=== PATIENT | female | born 1965 | race Caucasian/White ===

== ENCOUNTER → 2018-03-19 | Outpatient (CLI) | payer BC ==
[~2018-03-19] MED LIST: FLUO20CA20 PO; GABA600T PO; LEVO25TA PO; PRMVC TOP; RANI150T85 PO
== END | disposition home or self-care (01) ==
LOC: C.CPL 16:19
PROVIDERS: ATTEND Orthopaedic Surgery Sports Medicine
DX: Z01.810 Encounter for preprocedural cardiovascular examination (principal); M20.12 Hallux valgus (acquired), left foot

== ENCOUNTER 2025-08-22 18:42 | Inpatient (IN) ==
[2025-08-22 19:15] LABS: Hematocrit (blood only) 36.6 % (37.0-47.0); Hemoglobin 12.1 g/dl (12.0-16.0); Immature Granulocytes # (auto) 0.07 K/uL (0.01-0.20); Immature Granulocytes % (auto) 0.5 %; Mean Corpuscular Hemoglobin 28.1 pg (25.0-34.0); Mean Corpuscular Volume 84.9 fL (80.0-100.0); Platelet Count 329 K/uL (130-400); RDW Standard Deviation 42.8 fL (36.4-46.3); Red Blood Count 4.31 M/uL (4.20-5.40); White Blood Count 14.58 K/ul (4.8-10.8)
[2025-08-22 19:32] LABS: Alanine Aminotransferase 18.0 U/L (7-52); Albumin Globulin Ratio 1.0 (0.9-2); Albumin Level 3.7 gm/dl (3.4-5.0); Alkaline Phosphatase 88.0 U/L (34-104); Anion Gap 7.0 (3-11); Bilirubin,Total 0.6 mg/dl (0.2-1.0); Blood Urea Nitrogen 10.0 mg/dl (6-23); Calcium 9.7 mg/dl (8.6-10.3); Carbon Dioxide 28.0 mmol/L (21-32); Chloride 101.0 mmol/L (98-107); Creatinine Clr Calc Pharmacy 96.3 ml/min; Globulin 3.7 gm/dl (2.5-4.0); Glucose 111.0 mg/dl (70-99(Fasting)); Lipase 14.0 U/L (11-82); Potassium 3.7 mmol/L (3.5-5.1); Sodium 136.0 mmol/L (136-145); Total Protein 7.4 gm/dl (6.0-8.3)
[2025-08-22] MEDS: OPTIRAY 320 100ml IV ONE (20:15)
[2025-08-22] MEDS: ONDANSETRON INJ 2 MG/ML 2 ML VIAL IV STA (20:23)
[2025-08-22] MEDS: MoRPHine SULFATE 4 MG/ML 1 ML CARP\\VIAL IV STA ×2 (20:23→21:31)
--- NOTE | 2025-08-22 20:37 | Emergency Department Note ---
Impression & Plan Diverticulitis large intestine ED Provider Note Provider: Teodoro Sanford MD CHIEF COMPLAINT: Abdominal pain HISTORY OF PRESENT ILLNESS: Patient is a 59-year-old female past medical history of GERD, cholecystectomy, appendectomy, and hysterectomy presenting here today reporting severe abdominal pain developing over the past 8 or 9 days. Fluctuated some degree and then worsened medically today. Now severe mid abdomen generalized through to the back. No chest pain or shortness of breath. No fevers or chills. Maybe a little nausea at times but no vomiting. Denies significant diarrhea. No rashes reported. Patient is very worried that she could have cancer or some other serious abnormality and she has been googling things by her report. PAST MEDICAL HISTORY: As noted above MEDICATIONS: Reviewed home medications SOCIAL HISTORY: PHYSICAL EXAM: GENERAL: alert and oriented on stretcher tearful and crying quite anxious Head: normocephalic and atraumatic EYES: Slight bilateral conjunctival injection, without purulent discharge or icterus. EOMI. NECK: Trachea midline. Supple. ENT: Mucous membranes pink and moist. LUNGS: Airway patent. No retractions or tachypnea. HEART: Regular rate and rhythm. No chest wall tenderness ABDOMEN: Nondistended but significant guarding and diffuse abdominal tenderness. SKIN: Acyanotic, warm, dry, without rashes EXTREMITIES: Without swelling, tenderness or deformity NEUROLOGICAL: No focal deficits. No aphasia. No facial droop or slurred speech. EK bpm sinus rhythm with some artifact and a PVC. No acute ST segment elevation or depression with a QTc of 435. CONTINUOUS CARDIAC MONITORING: was ordered and showed a heart rate of bpm in Patient's laboratory studies and imaging reviewed. Differential includes Appendicitis, infections, diverticulitis, UTI, obstruction, mesenteric ischemia, aortic pathology, inflammatory bowel disease, renal colic, PUD, pancreatitis, biliary pathology, hernia, volvulus, constipation, as well as other pathologies. IMPRESSION/MEDICAL DECISION MAKING: Seen at time high-volume and acuity. From triage basic lab work is sent. No significant electrolyte abnormality signs of hepatitis or pancreatitis. EKG and troponin reviewed without findings concerning for cardiac injury. Denies any chest pain. Leukocytosis of 14 is noted without other anemia. Patient significant abdominal tenderness. Received some morphine and little bit of Zofran to help with this. CT scan of the abdomen pelvis was obtained. Does not seem consistent with kidney stone. Not really sided. Prior cholecystectomy, hysterectomy, and appendectomy lower suspicion for these diseases. Given her significant pain and tenderness almost question if she is perforated. CT scan of the abdomen pelvis shows evidence of acute diverticulitis of the mid sigmoid colon with a 5.8 x 4.3 x 5 cm contained perforation as abscess without free air. There is a question of possibly developing colovesicular fistula. Empiric Zosyn was ordered for antibiotic coverage here. Given CT finding reached out discussed with the general surgery team on-call tonight. Fortunately we have a colorectal surgeon who would be available tomorrow to evaluate as well as possible further discussion with IR to see if drainage would be amenable. Will start in addition to Zosyn and vancomycin for tonight. General surgery PA will evaluate and recommended medical admission. Discussed with the hospitalist team. Patient and updated at bedside. Advised them do not see report of any findings concerning for cancer at this time as she was worried about this. DIAGNOSIS: Sigmoid diverticulitisperforated DISPOSITION: Hospitalist will evaluate Patient was agreeable with this plan. Past Med/Surg History Problem List (Updated 08/22/25 @ 22:23 by Raffi Serra PA-C) Diverticulitis of intestine with abscess Diverticulitis large intestine (Acute) Gastroesophageal reflux disease Thyroid disease History of cholecystectomy History of appendectomy History of hysterectomy Vaginal discharge (Acute) Social History Smoking Status: Never smoker Preferred Language: Amharic marital status: current occupational status: employed Feels Safe at Home: Yes Allergies Allergies Allergy/AdvReac Type Severity Reaction Status Date / Time hydroxyzine Allergy Intermediate hives Verified 08/22/25 21:26 ketorolac Allergy Intermediate HIVES Verified 08/22/25 21:26 metoclopramide Allergy Intermediate hives Verified 08/22/25 21:26 GI COCKTAIL Allergy Severe HIVES & Uncoded 08/22/25 21:26 SWELLING Home Meds Home Medications Medication Instructions Recorded Confirmed levothyroxine 25 mcg tablet 25 mcg PO DAILY 07/30/20 08/22/25 ibuprofen 200 mg tablet 800 mg PO Q8 PRN Pain 02/21/23 08/22/25 losartan 50 mg-hydrochlorothiazide 1 tab PO DAILY 02/21/23 08/22/25 12.5 mg tablet Results & Data (ED) Vital Signs Vital Signs - 24 hr 08/22/25 18:47 08/22/25 20:31 08/22/25 20:33 Temperature 36.5 C Temperature Source Temporal Artery Scan Pulse Rate 89 103 H Pulse Rate [Apical] 101 H Respiratory Rate 18 22 Respiratory Effort / Characteristics Non-Labored Spontaneous Non-Labored Spontaneous Respiratory Depth Normal Normal Respiratory Pattern Regular Regular Blood Pressure 165/82 H Blood Pressure [Right Arm] 150/85 H Blood Pressure Mean 109 Blood Pressure Mean [Right Arm] 106 Blood Pressure Position [Right Arm] Semi-fowlers Pulse Oximetry 99 97 Oxygen Delivery Method Room Air Room Air Sepsis Recent Fever Within 48 Hours No Sepsis New/Unexplained Change in Mental Status N/A Sepsis Action Taken by Nursing No Action Required 08/22/25 22:00 Temperature Temperature Source Pulse Rate Pulse Rate [Apical] 87 Respiratory Rate 17 Respiratory Effort / Characteristics Non-Labored Spontaneous Respiratory Depth Normal Respiratory Pattern Regular Blood Pressure Blood Pressure [Right Arm] 150/85 H Blood Pressure Mean Blood Pressure Mean [Right Arm] 106 Blood Pressure Position [Right Arm] Pulse Oximetry 97 Oxygen Delivery Method Room Air Sepsis Recent Fever Within 48 Hours Sepsis New/Unexplained Change in Mental Status Sepsis Action Taken by Nursing Laboratory Data 08/22/25 18:55 08/22/25 18:55 Lab Results 08/22/25 08/22/25 Range/Units 18:55 21:20 WBC 14.58 H (4.8-10.8) K/ul RBC 4.31 (4.20-5.40) M/uL Hgb 12.1 (12.0-16.0) g/dl Hct 36.6 L (37.0-47.0) % MCV 84.9 (80.0-100.0) fL MCH 28.1 (25.0-34.0) pg MCHC 33.1 (32.0-36.0) g/dL RDW Std Deviation 42.8 (36.4-46.3) fL RDW Coeff of Mayela 13.7 (11.5-14.5) % Plt Count 329 (130-400) K/uL MPV 9.0 L (9.4-12.4) fL Immature Gran % (Auto) 0.5 % Neut % (Auto) 83.2 % Lymph % (Auto) 9.3 % [place] % (Auto) 5.7 % Eos % (Auto) 1.0 % Baso % (Auto) 0.3 % Neut # (Auto) 12.13 H (1.40-6.50) K/uL Lymph # (Auto) 1.36 (1.20-3.40) K/uL [place] # (Auto) 0.83 H (0.11-0.59) K/uL Eos # (Auto) 0.15 (0.00-0.50) K/uL Baso # (Auto) 0.04 (0.00-0.20) K/uL Immature Gran # (Auto) 0.07 (0.01-0.20) K/uL Sodium 136 (136-145) mmol/L Potassium 3.7 (3.5-5.1) mmol/L Chloride 101 (98-107) mmol/L Carbon Dioxide 28 (21-32) mmol/L Anion Gap 7 (3-11) BUN 10 (6-23) mg/dl Creatinine 0.69 (0.6-1.2) mg/dl Est Cr Clr Drug Dosing 96.3 ml/min eGFR 98.68 BUN/Creatinine Ratio 14.5 (10-20) Glucose 111 H (70-99(Fasting)) mg/dl Calcium 9.7 (8.6-10.3) mg/dl Magnesium 1.8 (1.7-2.4) mg/dl Total Bilirubin 0.6 (0.2-1.0) mg/dl AST 10 L (13-39) U/L ALT 18 (7-52) U/L Alkaline Phosphatase 88 (34-104) U/L Troponin I High Sens 3.9 (0-14) pg/ml Total Protein 7.4 (6.0-8.3) gm/dl Albumin 3.7 (3.4-5.0) gm/dl Globulin 3.7 (2.5-4.0) gm/dl Albumin/Globulin Ratio 1.0 (0.9-2) Lipase 14 (11-82) U/L Procalcitonin 0.04 (0-0.5) ng/ml Urine Color Yellow Urine Appearance Clear (Clear) Urine pH 7.5 (4.5-7.5) Ur Specific [place] 1.036 H (1.000-1.030) Urine Protein Negative (Negative) Urine Glucose (UA) Negative (Negative) Urine Ketones Negative (Negative) Urine Blood Trace H (Negative) Urine Nitrite Negative (Negative) Urine Bilirubin Negative (Negative) Urine Urobilinogen Negative (Negative) Ur Leukocyte Esterase 1+ H (Negative) Urine WBC (Auto) 0-5 (0-5) /hpf Urine RBC (Auto) 0-2 (0-2) /hpf U Hyaline Cast (Auto) 0-2 (0-2) /lpf U Epithel Cells (Auto) 0-2 (0-2) /hpf Urine Bacteria (Auto) None Seen (None Seen) Urine Comment Administered Medications Vancomycin HCl 1,750 mg/ (Sodium Chloride) 535 mls @ 200 mls/hr IV NOW ONE Stop: 08/23/25 00:00 Last Admin: 08/22/25 21:31 Dose: 200 mls/hr Documented By: TENNILLE Lactated Ringer's (Lr) 1,000 mls @ 125 mls/hr IV .Q8H MORALES Stop: 08/23/25 06:14 Last Admin: 08/22/25 22:36 Dose: 125 mls/hr Documented By: TENNILLE Morphine Sulfate (Morphine Sulfate 4 Mg/Ml 1 Ml Carp\Vial) 2 - 4 mg IV Q3H PRN PRN Reason: Pain moderate/severe Stop: 09/05/25 22:13 Last Admin: 08/22/25 22:36 Dose: 2 mg Documented By: TENNILLE Discontinued Medications Sodium Chloride (Nss) 1,000 mls @ 999 mls/hr IV .Q1H1M ONE Stop: 08/22/25 22:05 Last Infusion: 08/22/25 22:23 Dose: Infused Documented By: Admin: 08/22/25 21:17 Dose: 999 mls/hr Documented By: TENNILLE Ioversol (Optiray 320 100ml) 90 ml IV ONCE ONE Stop: 08/22/25 20:15 Last Admin: 08/22/25 20:15 Dose: 90 ml Documented By: JC Morphine Sulfate (Morphine Sulfate 4 Mg/Ml 1 Ml Carp\Vial) 4 mg IV NOW STA Stop: 08/22/25 20:10 Last Admin: 08/22/25 20:23 Dose: 4 mg Documented By: ADAN Morphine Sulfate (Morphine Sulfate 4 Mg/Ml 1 Ml Carp\Vial) 4 mg IV NOW STA Stop: 08/22/25 21:21 Last Admin: 08/22/25 21:31 Dose: 4 mg Documented By: TENNILLE Ondansetron HCl (Ondansetron Inj 2 Mg/Ml 2 Ml Vial) 4 mg IV NOW STA Stop: 08/22/25 20:10 Last Admin: 08/22/25 20:23 Dose: 4 mg Documented By: EMB Imaging Data Radiologist's Impression: Abdomen/Pelvis CT 08/22/25 19:16 Exam(s): CT ABDOMEN + PELVIS With Contrast IV Amt: 90 ml optiray 320 EXAM: CT Abdomen and Pelvis With Intravenous Contrast CLINICAL HISTORY: Reason for exam: abd pain to back. TECHNIQUE: Axial computed tomography images of the abdomen and pelvis with intravenous contrast. CTDI is 25.9 mGy and DLP is 1173 mGy-cm. Automated exposure control was utilized for the study. A dose lowering technique was utilized adhering to the principles of ALARA. CONTRAST: Patient received 90 ml optiray 320 of IV contrast COMPARISON: 02/20/2023 FINDINGS: Lung bases: Unremarkable. ABDOMEN: Liver: Unremarkable. No mass. Gallbladder and bile ducts: Cholecystectomy. No ductal dilation. Pancreas: Unremarkable. No mass. No ductal dilation. Spleen: Unremarkable. No splenomegaly. Adrenals: Unremarkable. No mass. Kidneys and ureters: No hydronephrosis. Left kidney extrarenal pelvis. Stomach and bowel: No bowel obstruction. Diverticulosis. Complicated acute diverticulitis of the mid sigmoid colon with contained perforation/diverticular abscess along the lateral aspect measuring 5.8 x 4.3 x 5.0 cm. PELVIS: Appendix: Appendix not visualized. Bladder: Wall thickening left aspect of the urinary bladder with inflammatory tract extending between the bladder and the inflamed sigmoid colon. Reproductive: Unremarkable as visualized. ABDOMEN and PELVIS: Intraperitoneal space: Trace ascites in the pelvis. No free pneumoperitoneum. Bones/joints: Disc and facet degeneration in the lumbar spine. No acute fracture. No dislocation. Soft tissues: Unremarkable. Vasculature: Atherosclerosis. No abdominal aortic aneurysm. Lymph nodes: Unremarkable. No enlarged lymph nodes. IMPRESSION: 1. Complicated acute diverticulitis of the mid sigmoid colon with contained perforation/diverticular abscess along the lateral aspect measuring 5.8 x 4.3 x 5.0 cm. 2. Inflammatory tract extending from the inflamed sigmoid to the urinary bladder (best visualized on sagittal images 56-60) could represent a developing colovesicular fistula. 3. No free pneumoperitoneum. Electronically signed by: Alyssa Mackay M.D. 08/22/25 20:55 PM Discharge Plan Visit Data Chief Complaint: Abdominal Pain Stated Complaint: SEVERE ABD PAIN ED Provider: Teodoro Sanford Discharge Problem: Diverticulitis large intestine Patient Disposition: Being Evaluated by Hospitalist Condition: Serious Forms Stand Alone Forms: [facility] Prescriptions Prescriptions: No Action levothyroxine 25 mcg Tablet 25 mcg PO DAILY ibuprofen 200 mg Tablet 800 mg PO Q8 PRN (Reason: Pain) losartan-hydrochlorothiazide 50-12.5 mg tablet 1 tab PO DAILY Referrals Referrals: Shi Velasquez MD [Primary Care Provider] - Discharge Problem: Diverticulitis large intestine Qualifiers: Diverticulitis bleeding: without bleeding Diverticulitis complication: with perforation and abscess Qualified Code(s): K57.20 - Diverticulitis of large intestine with perforation and abscess without bleeding
--- NOTE | 2025-08-22 20:56 | CT Scan Report ---
Exam(s): CT ABDOMEN + PELVIS With Contrast IV Amt: 90 ml optiray 320 EXAM: CT Abdomen and Pelvis With Intravenous Contrast CLINICAL HISTORY: Reason for exam: abd pain to back. TECHNIQUE: Axial computed tomography images of the abdomen and pelvis with intravenous contrast. CTDI is 25.9 mGy and DLP is 1173 mGy-cm. Automated exposure control was utilized for the study. A dose lowering technique was utilized adhering to the principles of ALARA. CONTRAST: Patient received 90 ml optiray 320 of IV contrast COMPARISON: 02/20/2023 FINDINGS: Lung bases: Unremarkable. ABDOMEN: Liver: Unremarkable. No mass. Gallbladder and bile ducts: Cholecystectomy. No ductal dilation. Pancreas: Unremarkable. No mass. No ductal dilation. Spleen: Unremarkable. No splenomegaly. Adrenals: Unremarkable. No mass. Kidneys and ureters: No hydronephrosis. Left kidney extrarenal pelvis. Stomach and bowel: No bowel obstruction. Diverticulosis. Complicated acute diverticulitis of the mid sigmoid colon with contained perforation/diverticular abscess along the lateral aspect measuring 5.8 x 4.3 x 5.0 cm. PELVIS: Appendix: Appendix not visualized. Bladder: Wall thickening left aspect of the urinary bladder with inflammatory tract extending between the bladder and the inflamed sigmoid colon. Reproductive: Unremarkable as visualized. ABDOMEN and PELVIS: Intraperitoneal space: Trace ascites in the pelvis. No free pneumoperitoneum. Bones/joints: Disc and facet degeneration in the lumbar spine. No acute fracture. No dislocation. Soft tissues: Unremarkable. Vasculature: Atherosclerosis. No abdominal aortic aneurysm. Lymph nodes: Unremarkable. No enlarged lymph nodes. IMPRESSION: 1. Complicated acute diverticulitis of the mid sigmoid colon with contained perforation/diverticular abscess along the lateral aspect measuring 5.8 x 4.3 x 5.0 cm. 2. Inflammatory tract extending from the inflamed sigmoid to the urinary bladder (best visualized on sagittal images 56-60) could represent a developing colovesicular fistula. 3. No free pneumoperitoneum. Electronically signed by: Alyssa Mackay M.D. 08/22/25 20:55 PM
--- NOTE | 2025-08-22 21:14 | Surgery Consultation ---
Date of Consultation August 22, 2025 Assessment & Plan (1) Diverticulitis of intestine with abscess: The patient is a 59-year-old female presented to the emergency department with approximately 8 days of abdominal pain. Upon workup patient with elevated WBC of 14.[address] A/P findings of acute diverticulitis of mid sigmoid colon with contained perforation/diverticular abscess along lateral aspect (5.8 x 4.1 x 5.0 cm), inflammatory tract extending from the sigmoid to the urinary bladder could represent developing colovesicular fistula, no free pneumoperitoneum. Patient was seen and evaluated at bedside this evening in the emergency department and she will be admitted to the medical service. From a surgical standpoint recommend the following: -Keep NPO, appropriate IV hydration, and IV antibiotic coverage -Patient with [id number] abscess, will discuss case with IR team in the morning for possible drainage -Pain control and antiemetics as needed -Will discuss patient's case with attending surgeon inspector structural bonding, Dr. Woodruff, and additional surgical recommendations will follow. Supervising Physician Co-Signing Physician Notes CT images and results were personally viewed and interpreted by myself She has an abscess in the left pelvis, will reach out to IR to see if this is able to be drained No plans for any surgical intervention at this time History of Present Illness Reason for Consultation: Diverticulitis with abscess and possible colovesicular fistula History of Present Illness The patient is a 59-year-old female presented to the emergency department with approximately 8 days of abdominal pain. Patient states that last week she awoke from sleep around 3:30 in the morning with severe abdominal pain that came out of nowhere. Patient states that prior to the pain she felt in her normal state of health. The patient states that over the last few days she has just overall not felt well. States that her abdomen felt overall "heavy" and she has had intermittent sharp/severe lower abdominal pain, mostly in the left lower quadrant. She also states the pain has started to radiate into her entire lower abdomen and now into her back as well. She also states that she has increased pain before/during a bowel movement. She denies any associated nausea, vomiting, fevers, or chills. The patient states that she did have a colonoscopy approximately 10 years ago, she was told she has diverticulosis but at the time there were no other abnormal findings. The patient does have a surgical history of a hysterectomy and 2 C-sections in the past. The patient was worked up in the emergency department this evening and was found to have an elevated WBC at 14.[address] findings of acute diverticulitis of mid sigmoid colon with contained perforation/diverticular abscess along lateral aspect (5.8 x 4.1 x 5.0 cm), inflammatory tract extending from the sigmoid to the urinary bladder could represent developing colovesicular fistula, no free pneumoperitoneum. The surgical team was consulted to evaluate the patient. Allergies Allergy/AdvReac Type Severity Reaction Status Date / Time aluminum hydroxide Allergy Severe hives and Verified 08/23/25 07:59 [From Maalox Maximum swelling Strength] atropine [From ] Allergy Severe hives and Verified 08/23/25 07:59 swelling hyoscyamine [From ] Allergy Severe hives and Verified 08/23/25 07:59 swelling lidocaine Allergy Severe hives and Verified 08/23/25 07:59 swelling magnesium hydroxide Allergy Severe hives and Verified 08/23/25 07:59 [From Maalox Maximum swelling Strength] phenobarbital [From ] Allergy Severe hives and Verified 08/23/25 07:59 swelling scopolamine [From ] Allergy Severe hives and Verified 08/23/25 07:59 swelling simethicone Allergy Severe hives and Verified 08/23/25 07:59 [From Maalox Maximum swelling Strength] hydroxyzine Allergy Intermediate hives Verified 08/22/25 21:26 ketorolac Allergy Intermediate HIVES Verified 08/22/25 21:26 metoclopramide Allergy Intermediate hives Verified 08/22/25 21:26 Home Medications Medication Instructions Recorded Confirmed Type levothyroxine 25 mcg tablet 25 mcg PO DAILY 07/30/20 08/22/25 History ibuprofen 200 mg tablet 800 mg PO Q8 PRN Pain 02/21/23 08/22/25 History losartan 50 mg-hydrochlorothiazide 1 tab PO DAILY 02/21/23 08/22/25 History 12.5 mg tablet Patient History Social History Smoking Status: Never smoker Hx Alcohol Use: No Hx Substance Use: No Preferred Language: Bengali Communication Ability: Effective Telegraphic Typewriter Repairer Required: No Beliefs That Will Affect Care: None marital status: Current Living Situation: Spouse current occupational status: employed Other Information That Helps Us Care for You: No Feels Safe at Home: Yes Safety Concerns: Feels Safe At This Time Assistive Devices: Glasses Review of Systems Constitutional: no fever, no chills and no weakness Respiratory: no cough, no chest congestion and no dyspnea Cardiovascular: no chest pain, no palpitations and no syncope Gastrointestinal: as per Subjective / HPI and + abdominal pain; no nausea and no vomiting Genitourinary: no difficulty urinating and no hematuria Physical Exam Constitutional: WD/WN, vitals as above Respiratory: normal respiratory effort, lungs clear to auscultation Cardiovascular: Rate/Rhythm: regular rate Gastrointestinal (Abdomen): Abdomen soft, nondistended, +TTP in the lower abdomen L>R. No rebound, guarding or signs of peritonitis Skin: no rashes, warm and dry Results & Data Vital Signs (Past 12 Hours) Vital Signs Temp Pulse Pulse Resp BP BP Pulse Ox 08/22/25 20:33 103 H 08/22/25 20:31 101 H 22 150/85 H 97 08/22/25 18:47 36.5 C 89 18 165/82 H 99 O2 Del Method 08/22/25 20:33 08/22/25 20:31 Room Air 08/22/25 18:47 Room Air PG Care Time/CCT Total # of Minutes Spent Total Time Spent with Patient: Total time spent is greater than 50% in coordination of care (as documented) at patient's floor/unit and/or counseling patient: [place] [address] Inpt Consult Level 1 Patient Type New Medical Decision Making Straight Forward Diagnoses Diverticulitis of intestine with abscess K57.80
[2025-08-22] MEDS: SODIUM CHLORIDE 0.9% 1,000 ML IV ONE (21:17)
[2025-08-22] MEDS ORDERED: VANCOMYCIN CONSULT ACTIVE PRN (21:20)
[2025-08-22] MEDS: VANCOMYCIN HCL 1,750 MG in SODIUM CHLORIDE 0.9% 500 ML IV ONE (21:31)
[2025-08-22 21:43] LABS: Appearance Urine Clear (Clear); Bacteria Urine Automated None Seen (None Seen); Cast Urine Automated 0-2 /lpf (0-2); Epithelial Cell Urine Auto 0-2 /hpf (0-2); Glucose Urine UA Negative (Negative); RBC Urine Automated 0-2 /hpf (0-2); WBC Urine Automated 0-5 /hpf (0-5)
--- NOTE | 2025-08-22 21:44 | History & Physical Report ---
Date of Service August 22, 2025 Assessment & Plan (1) Diverticulitis of intestine with abscess: Plan 59-year-old female PMHx hypothyroidism, HTN, and GERD presenting for worsening abdominal pain starting 9 days [employer]. Evaluation does reveal evidence of leukocytosis, with stable H/H. CMP grossly unremarkable, and UA pending at time of admission. CTAP shows complicated diverticulitis with contained perforation/abscess present, possible developing colovesicular fistula. Admission for IV abx, with general surgery assistance. #Diverticulitis with abscess / ? Colovesicular fistula Worsening abdominal pain over the course of 90s [employer], worsened with a night of arrival. Prior hysterectomy, and 2 C-sections. Colonoscopy ~ 10 years ago, was told she had diverticulosis at that time. Admission for IV abx and pain control at this time. Appreciate general surgery assistance. Patient should have colonoscopy 6 to 8 weeks following the resolution of infection. - CBC WBC 14.58, H/H 12.1/36.6; CMP glucose 111, AST 10; Mg 1.8; procal 0.04; lactate pending - CBC, BMP am - UA without infection - CTAP complicated acute diverticulitis of mid sigmoid colon with contained perforation/diverticular abscess along lateral aspect, inflammatory tract extending from the sigmoid to urinary bladder could represent developing colovesicular fistula, no free pneumoperitoneum - NPO - IVF LR @ 125 mL/hr - Zofran prn N/V - Acetaminophen prn fever/pain, morphine prn moderate-severe pain - Zosyn + Vanco IV - Gen sx consulted -- as well as colorectal specifically -- appreciate input + recs #HTN- Losartan-HCTZ - hold while npo #Hypothyroidism- Levothyroxine - hold while npo Dispo: Admit, med/sx VTE Prophylaxis: SCDs This document was dictated utilizing [employer]. Please excuse any grammatical errors that may be secondary to use of this software. Admission and Anticipated Discharge Date Admission Date: 08/22/2025 History of Present Illness Chief Complaint: Abd pain Primary Care Provider: Shi Velasquez MD 59-year-old female PMHx hypothyroidism, HTN, and GERD presenting for worsening abdominal pain starting 8 days [employer]. Pt states that ~ 1 week [employer] she awoke from sleep around 0330 with "excruciating pain". She states that she tossed and turned throughout the night and was unable to get comfortable. She states that the day after that she tried to go to a festival when she felt not great throughout the day. She called off work at the beginning of the week and then when she went back in the next day she states that she just did not feel "right ". Describes her abdomen felt generalized heaviness with waves of worsening sharp pain across her lower abdomen, most severe in the left lower quadrant, but also radiating to the right lower quadrant. She states on the day of arrival her pain increased significantly, stating that it was also radiating to her back and lower aspect without radiation elsewise. She states that she has some small bowel movements that are loose in nature, but she otherwise feels that she has to have a bowel movement and is unable to. She has not noticed any blood. Not having any nausea or vomiting. She states that her last colonoscopy was approximately 10 years ago, she was told that she has diverticulosis but no other findings. Has had a hysterectomy with only 1 ovary left as well as 2 C- sections in the past. Denies chest pain, SOB, palpitations, numbness/tingling, fever/chills, LUTS, URI symptoms, weakness, syncope, or falls. Never had this happen before. ED evaluation revealed CBC with leukocytosis 14.58, H&H 12.1/36.1; CMP glucose 111, AST 10; lipase 14; troponin 3.9; UA pending; CTAP complicated acute diverticulitis of mid sigmoid colon with contained perforation/diverticular abscess along lateral aspect (5.8 x 4.1 x 5.0 cm), inflammatory tract extending from the sigmoid to the urinary bladder could represent developing colovesicular fistula, no free pneumoperitoneum; EKG sinus rhythm with PSVC and occasional PVCs with nonspecific ST abnormality at 85 bpm.; Provided with 1L NSS, vancomycin IV, Zofran 4 mg IV, and morphine 4 mg IV x [address] Please see Dr[address] Unger's attestation for adjustments/additions to treatment plan. Allergies Allergy/AdvReac Type Severity Reaction Status Date / Time hydroxyzine Allergy Intermediate hives Verified 08/22/25 21:26 ketorolac Allergy Intermediate HIVES Verified 08/22/25 21:26 metoclopramide Allergy Intermediate hives Verified 08/22/25 21:26 GI COCKTAIL Allergy Severe HIVES & Uncoded 08/22/25 21:26 SWELLING Home Medications Medication Instructions Recorded Confirmed Type levothyroxine 25 mcg tablet 25 mcg PO DAILY 07/30/20 08/22/25 History ibuprofen 200 mg tablet 800 mg PO Q8 PRN Pain 02/21/23 08/22/25 History losartan 50 mg-hydrochlorothiazide 1 tab PO DAILY 02/21/23 08/22/25 History 12.5 mg tablet Past Med/Surg History Problem List (Updated 08/22/25 @ 22:23 by Raffi Serra PA-C) Diverticulitis of intestine with abscess Diverticulitis large intestine (Acute) Gastroesophageal reflux disease Thyroid disease History of cholecystectomy History of appendectomy History of hysterectomy Vaginal discharge (Acute) Social History Smoking Status: Never smoker Hx Alcohol Use: No Hx Substance Use: No Preferred Language: Cypriot Communication Ability: Effective Phone Engineer Required: No Beliefs That Will Affect Care: None marital status: Current Living Situation: Spouse current occupational status: employed Other Information That Helps Us Care for You: No Feels Safe at Home: Yes Safety Concerns: Feels Safe At This Time Assistive Devices: Glasses Review of Systems Review of Systems: All systems reviewed & are unremarkable except as noted in Subjective Physical Exam Physical Exam: General: No acute distress Skin: Warm and dry Head: Normocephalic, atraumatic Eyes: PERRL, conjunctivae clear, sclera non-icteric ENT: External ear and ear canal without swelling; nose atraumatic; good dentition, tongue normal appearance, pharynx normal Neck: Supple, no LAD Cardio: RRR, no M/G/R, S1 and S2 normal Resp: No respiratory distress, Lungs CTA in all lobes bilaterally, no wheezes, rales, or rhonchi Abdomen: Soft, symmetric, tenderness LLQ, no guarding or signs of peritonitis; No masses or hepatosplenomegaly; Bowel sounds normoactive MSK: No deformities; pulses palpable and equal; no edema. Neuro: Awake, alert; Sensation intact bilaterally; CN grossly intact Psych: Tearful, appropriate mood and affect; good judgement and insight. present in room at time of visit. General surgery Jose Alfredo NGUYEN, was in the room during the time of visit as well. Results & Data Results & Data Vital Signs (Past 12 Hours) Vital Signs Temp Pulse Pulse Resp BP BP Pulse Ox 08/22/25 20:33 103 H 08/22/25 20:31 101 H 22 150/85 H 97 08/22/25 18:47 36.5 C 89 18 165/82 H 99 O2 Del Method 08/22/25 20:33 08/22/25 20:31 Room Air 08/22/25 18:47 Room Air Laboratory Results 08/22/25 08/22/25 21:20 18:55 WBC 14.58 H RBC 4.31 Hgb 12.1 Hct 36.6 L MCV 84.9 MCH 28.1 MCHC 33.1 RDW Std Deviation 42.8 RDW Coeff of Mayela 13.7 Plt Count 329 MPV 9.0 L Immature Gran % (Auto) 0.5 Neut % (Auto) 83.2 Lymph % (Auto) 9.3 Bath % (Auto) 5.7 Eos % (Auto) 1.0 Baso % (Auto) 0.3 Neut # (Auto) 12.13 H Lymph # (Auto) 1.36 Bath # (Auto) 0.83 H Eos # (Auto) 0.15 Baso # (Auto) 0.04 Immature Gran # (Auto) 0.07 Sodium 136 Potassium 3.7 Chloride 101 Carbon Dioxide 28 Anion Gap 7 BUN 10 Creatinine 0.69 Est Cr Clr Drug Dosing 96.3 eGFR 98.68 BUN/Creatinine Ratio 14.5 Glucose 111 H Calcium 9.7 Total Bilirubin 0.6 AST 10 L ALT 18 Alkaline Phosphatase 88 Troponin I High Sens 3.9 Total Protein 7.4 Albumin 3.7 Globulin 3.7 Albumin/Globulin Ratio 1.0 Lipase 14 Urine Comment Diagnostic Findings Abdomen/Pelvis CT 08/22/25 19:16 Exam(s): CT ABDOMEN + PELVIS With Contrast IV Amt: 90 ml optiray 320 EXAM: CT Abdomen and Pelvis With Intravenous Contrast CLINICAL HISTORY: Reason for exam: abd pain to back. TECHNIQUE: Axial computed tomography images of the abdomen and pelvis with intravenous contrast. CTDI is 25.9 mGy and DLP is 1173 mGy-cm. Automated exposure control was utilized for the study. A dose lowering technique was utilized adhering to the principles of ALARA. CONTRAST: Patient received 90 ml optiray 320 of IV contrast COMPARISON: 02/20/2023 FINDINGS: Lung bases: Unremarkable. ABDOMEN: Liver: Unremarkable. No mass. Gallbladder and bile ducts: Cholecystectomy. No ductal dilation. Pancreas: Unremarkable. No mass. No ductal dilation. Spleen: Unremarkable. No splenomegaly. Adrenals: Unremarkable. No mass. Kidneys and ureters: No hydronephrosis. Left kidney extrarenal pelvis. Stomach and bowel: No bowel obstruction. Diverticulosis. Complicated acute diverticulitis of the mid sigmoid colon with contained perforation/diverticular abscess along the lateral aspect measuring 5.8 x 4.3 x 5.0 cm. PELVIS: Appendix: Appendix not visualized. Bladder: Wall thickening left aspect of the urinary bladder with inflammatory tract extending between the bladder and the inflamed sigmoid colon. Reproductive: Unremarkable as visualized. ABDOMEN and PELVIS: Intraperitoneal space: Trace ascites in the pelvis. No free pneumoperitoneum. Bones/joints: Disc and facet degeneration in the lumbar spine. No acute fracture. No dislocation. Soft tissues: Unremarkable. Vasculature: Atherosclerosis. No abdominal aortic aneurysm. Lymph nodes: Unremarkable. No enlarged lymph nodes. IMPRESSION: 1. Complicated acute diverticulitis of the mid sigmoid colon with contained perforation/diverticular abscess along the lateral aspect measuring 5.8 x 4.3 x 5.0 cm. 2. Inflammatory tract extending from the inflamed sigmoid to the urinary bladder (best visualized on sagittal images 56-60) could represent a developing colovesicular fistula. 3. No free pneumoperitoneum. Electronically signed by: Alyssa Mackay M.D. 08/22/25 20:55 PM Medications Administered 1L NSS Vancomycin 1.75 g IV Zofran 4 mg IV Morphine 4 mg IV x 2 ECG Additional Comments: Sinus rhythm with PSVC and occasional PVCs with nonspecific ST abnormality 85 bpm, AK 164, QRS 96, QT/QTc 388/435, PRT 44/-16/30 Code Status & VTE Plan Code Status Full Supervising Physician Co-Signing Physician Notes Attending addendum: I have physically seen this patient, have supervised the DERRELL's activities, and agree with the H&P unless as otherwise noted. Assessment and Plan: The patient is a 59-year-old female with a past medical history including hypot hyroidism, hypertension, and GERD. Who presents to the emergency department with worsening abdominal pain that began about 9 days prior to arrival. WBC is elevated at 14.58. CT scan of abdomen pelvis shows a complicated acute diverticulitis of the mid sigmoid colon with contained perforation/diverticular abscess along the lateral aspect measuring 5.8 x 4.3 x 5.0 cm. Is inflammatory tract extending from the inflamed sigmoid to the urinary bladder, which could represent a developing colovesical fistula. Mid sigmoid colon diverticulitis with contained perforation/diverticular abscess- WBC 14.58 with left shift N.p.o. LR at 125 mL/h Zofran 4 mg IV every 6 hours as needed Acetaminophen 1 g IV every 8 hours as needed for mild pain or fever Morphine sulfate as needed moderate to severe pain is noted Zosyn 4.5 g IV every 8 hours Vancomycin IV per pharmacokinetic monitoring General Surgery consulted Potential developing colovesical fistula- Urinalysis with 1+ leukocyte esterase and trace blood Follow urine culture sensitivity Will consider urologic consult for possible cystoscopy if symptoms develop, or cultures positive Hypertension- Hold losartan/HCTZ If blood pressure elevates, could add hydralazine IV as needed Hypothyroidism- Hold levothyroxine while n.p.o. PG Care Time/CCT Total # of Minutes Spent Total Time Spent with Patient: Total time spent is greater than 50% in coordination of care (as documented) at patient's floor/unit and/or counseling patient: Coding Level of Care Code 56861 INT INP/OBS CARE MIN Diagnoses Diverticulitis of intestine with abscess K57.80
[2025-08-22 21:55] LABS: Magnesium 1.8 mg/dl (1.7-2.4)
[2025-08-22] MEDS: LACTATED RINGER'S 1,000 ML IV SCH (22:36)
[2025-08-22] MEDS: MoRPHine SULFATE 4 MG/ML 1 ML CARP\\VIAL IV PRN (22:36)
[2025-08-23] MEDS: ACETAMINOPHEN 1,000 MG/100 ML VIAL IV PRN (00:49)
[2025-08-23] MEDS: PIPERACILLIN/TAZOBACTAM 4.5 GM/100 ML BAG IV STA (01:18)
[2025-08-23] MEDS: SODIUM CHLORIDE 0.9% 1,000 ML IV SCH ×2 (01:18→13:49)
[2025-08-23] MEDS: VANCOMYCIN HCL 1,250 MG in SODIUM CHLORIDE 0.9% 250 ML IV SCH (05:58)
[2025-08-23] MEDS: PIPERACILLIN/TAZOBACTAM 4.5 GM/100 ML BAG IV SCH (06:07)
[2025-08-23] MEDS: ONDANSETRON INJ 2 MG/ML 2 ML VIAL IV PRN (06:25)
[2025-08-23 07:10] LABS: Hematocrit (blood only) 32.1 % (37.0-47.0); Hemoglobin 10.2 g/dl (12.0-16.0); Mean Corpuscular Hemoglobin 27.7 pg (25.0-34.0); Mean Corpuscular Volume 87.2 fL (80.0-100.0); Platelet Count 265 K/uL (130-400); RDW Standard Deviation 44.7 fL (36.4-46.3); Red Blood Count 3.68 M/uL (4.20-5.40); White Blood Count 11.40 K/ul (4.8-10.8)
[2025-08-23 07:30] LABS: Anion Gap 6.0 (3-11); Blood Urea Nitrogen 8.0 mg/dl (6-23); Calcium 8.3 mg/dl (8.6-10.3); Carbon Dioxide 26.0 mmol/L (21-32); Chloride 108.0 mmol/L (98-107); Creatinine Clr Calc Pharmacy 100.1 ml/min; Glucose 94.0 mg/dl (70-99(Fasting)); Potassium 3.6 mmol/L (3.5-5.1); Sodium 140.0 mmol/L (136-145)
--- NOTE | 2025-08-23 08:17 | Pharmacy Report ---
Pharmacy PK ABX Note - Date of Service August 23, 2025 - Assessment and Plan Assessment 59 year old F receiving Zosyn/vancomycin for treatment of diverticulitis with abscess/colovesicular fistula?. Day # 1 of antimicrobial therapy. Plan Vancomycin * Loading dose: 1750 mg IV x 1 * Maintenance dose: 1250 mg IV every 12 hours * Regimen is predicted to achieve target AUC/ENRRIQUE of 400-600 mg/L.hr * Trough level ordered for: 08/25/25 @0530 Pharmacy will continue to follow and will adjust dose/frequency as necessary. Thank you. Pharmacy has transitioned to AUC monitoring for vancomycin. AUC/ENRRIQUE is the preferred PK/PD target and is associated with decreased risk of nephrotoxicity compared to traditional trough targets.
--- NOTE | 2025-08-23 10:58 | Hospitalist Progress Note ---
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 Evaluation does reveal evidence of leukocytosis, with stable H/H. CMP grossly unremarkable, and UA pending at time of admission. CTAP shows complicated diverticulitis with contained perforation/abscess present, possible developing colovesicular fistula. Admission for IV abx, with general surgery assistance. #Diverticulitis with abscess / ? Colovesicular fistula CTAP: complicated acute diverticulitis of mid sigmoid colon w/ contained perf oration/diverticular abscess along lateral aspect, inflammatory tract extending from the sigmoid to urinary bladder could represent developing colovesicular fistula, no free pneumoperitoneum. Procal negative. Leukocytosis downtrending to 11.40. Surgery following: recommend IR drainage & supportive care IR drain placed 08/23 --> pt w/ significant L leg pain afterwards. Discussed w/ IR PA who notes that it is secondary to catheter being close to neurovascular bundle of nerves. Confirmed that sciatic nerve was not hit upon drainage & this pain is irritation to catheter placement. Maintain NPO status & Continue IVF Zofran prn for N/V. Pain med switched to Diluadid 0.5-1mg q 3h prn Continue Zosyn & Vanco Will require colonoscopy 6-8 weeks following acute incident of diverticulitis. AM CBC, CRP #HTN- Losartan-HCTZ - hold while npo #Hypothyroidism- resume Levothyroxine Dispo: Admit, med/sx VTE Prophylaxis: SCDs Discussed w/ IR team & general surgery PA 08/23. Admission and Anticipated Discharge Date Admission Date: August 22, 2025 Supervising Physician Co-Signing Physician Notes The patient was not seen by me. The chart was reviewed. Case discussed with SONIDO Sweeney. Agree with assessment and plan Subjective Liliam was seen & examined this afternoon. She report severe left leg pain. It starts in her hip/buttock region and is radiating down her leg. She reports her abdominal pain has been controlled with pain meds. Denies passing gas today. Has not had BM. Physical Exam Physical Exam: General: NAD, VS: BP 95/60; P67; R18; T36.6C Resp: normal respiratory effort, lungs clear to auscultation CV: RRR, no murmur Abd: hypoactive BS. tenderness to palpation in LLQ. soft. Extremities: no edema, tenderness to palpation in left hip region. able to move leg w/ complaint of pain upon movement. Neuro: A&O x3 Skin: intact, no lesions noted Results & Data Results & Data Vital Signs (Past 12 Hours) Vital Signs Temp Pulse Pulse Resp BP BP Pulse Ox 08/23/25 07:35 36.6 C 94 H 18 108/69 98 08/23/25 00:02 08/23/25 00:02 36.7 C 84 18 121/80 96 08/22/25 23:35 89 17 125/75 98 O2 Del Method 08/23/25 07:35 Room Air 08/23/25 00:02 Room Air 08/23/25 00:02 Room Air 08/22/25 23:35 Room Air PG Care Time/CCT Total # of Minutes Spent Total Time Spent with Patient: Total time spent is greater than 50% in coordination of care (as documented) at patient's floor/unit and/or counseling patient: Coding Level of Care Code 63341 SUB INP/OBS CARE 3/50MIN Diagnoses Diverticulitis of intestine with abscess K57.80
[2025-08-23] MEDS: LEVOTHYROXINE SODIUM 25 MCG TABLET PO SCH (13:17)
[2025-08-23] MEDS ORDERED: HYDROmorphone INJ 0.5 MG/0.5 ML SYR IV PRN (14:19)
[2025-08-23] MEDS: HYDROmorphone INJ 1 MG/ML SYRINGE IV PRN (15:19)
--- NOTE | 2025-08-23 15:20 | CT Scan Report ---
CT-guided diverticular abscess drain placement INDICATION: Diverticular abscess PROCEDURE: Procedure and risks were explained. Informed consent was obtained. A final timeout was com pleted. Patient was placed prone on the CT exam table. The left gluteal region was prepped and draped in sterile fashion. 3% Nesacaine was utilized for skin anesthesia. Utilizing CT guidance, an 18-gauge 10 cm Chiba needle was advanced into the pelvic abscess collection . A 0.035 Amplatz wire was introduced and exchanged for an 8 Bengali locking pigtail catheter. Approxi mately 50 mL of pus was drained with a small portion sent to lab for culture and analysis. The cathet er was sutured to the skin with 3-0 Prolene and placed to gravity bag drainage. The patient tolerated the procedure well. Post CT imaging demonstrated no immediate complications with adequate catheter p osition. Vital signs will be monitored on the floor. IMPRESSION: Pelvic abscess drain placement as detailed above. Performed, dictated, and signed by Rg Hopkins PA-C; to be co-signed by Dr. Brett Izquierdo. Electronically signed by: Brett Izquierdo M.D. 08/23/2025 3:39 PM
[2025-08-23] MEDS: CHLOROPROCAINE HCL 3% 20 ML VIAL INFIL STA (15:43)
[2025-08-24 07:19] LABS: Anion Gap 7.0 (3-11); Blood Urea Nitrogen 9.0 mg/dl (6-23); Calcium 8.4 mg/dl (8.6-10.3); Carbon Dioxide 25.0 mmol/L (21-32); Chloride 107.0 mmol/L (98-107); Creatinine Clr Calc Pharmacy 97.2 ml/min; Glucose 73.0 mg/dl (70-99(Fasting)); Potassium 3.6 mmol/L (3.5-5.1); Sodium 139.0 mmol/L (136-145)
--- NOTE | 2025-08-24 10:09 | Surgery Progress Note ---
Date of Service August 24, 2025 Assessment & Plan (1) Diverticulitis of intestine with abscess: Plan: She is doing much better after drain placement Can trial clears today No plans for any surgical intervention this admission She is going to follow-up with colorectal surgery as an outpatient Will follow Admission and Anticipated Discharge Date Admission Date: August 22, 2025 Subjective Patient seen and examined. Feels better than yesterday. Still with some mild left lower quadrant pain. The pain associated with her drain has dramatically improved. Afebrile. Having some diarrhea. Review of Systems Constitutional: no fever, no chills and no weakness Respiratory: no cough, no chest congestion and no dyspnea Cardiovascular: no chest pain, no palpitations and no syncope Gastrointestinal: + abdominal pain and + diarrhea/loose st ools; no nausea and no vomiting Genitourinary: no difficulty urinating and no hematuria Integumentary: no rash and no non-healing lesions Psychiatric: no behavioral changes and no depression Physical Exam Constitutional: WD/WN, vitals as above Eyes: PERRL, conjunctivae normal, anicteric sclerae Respiratory: normal respiratory effort, lungs clear to auscultation Cardiovascular: RRR, no murmur, no edema Gastrointestinal (Abdomen): Inspection/Auscultation: abdomen normal to inspection; abdomen not distended Percussion/Palpation: + abdomen tender (Mild left lower quadrant) and abdomen soft; no guarding and no hernia Musculoskeletal: no cyanosis or clubbing, extremities motor strength 5/5 Skin: no rashes, warm and dry Psychiatric: A+Ox3, euthymic affect Results & Data Vital Signs (Past 12 Hours) Vital Signs Temp Pulse Resp BP Pulse Ox O2 Del Method 08/24/25 08:25 36.9 C 69 20 131/83 96 Room Air 08/23/25 22:37 36.6 C 70 16 112/67 96 Room Air PG Care Time/CCT Total # of Minutes Spent Total Time Spent with Patient: Total time spent is greater than 50% in coordination of care (as documented) at patient's floor/unit and/or counseling patient: Coding Level of Care Code 14532 SUB INP/OBS CARE 12/03MIN Diagnoses Diverticulitis of intestine with abscess K57.80
[2025-08-24 10:56] LABS: Hematocrit (blood only) 34.6 % (37.0-47.0); Hemoglobin 11.6 g/dl (12.0-16.0); Immature Granulocytes # (auto) 0.21 K/uL (0.01-0.20); Immature Granulocytes % (auto) 2.1 %; Mean Corpuscular Hemoglobin 29.6 pg (25.0-34.0); Mean Corpuscular Volume 88.3 fL (80.0-100.0); Platelet Count 299 K/uL (130-400); RDW Standard Deviation 44.0 fL (36.4-46.3); Red Blood Count 3.92 M/uL (4.20-5.40); White Blood Count 9.85 K/ul (4.8-10.8)
--- NOTE | 2025-08-24 11:59 | Hospitalist Progress Note ---
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 Evaluation does reveal evidence of leukocytosis, with stable H/H. CMP grossly unremarkable, and UA pending at time of admission. CTAP shows complicated diverticulitis with contained perforation/abscess present, possible developing colovesicular fistula. Admission for IV abx, with general surgery assistance. #Diverticulitis with abscess / ? Colovesicular fistula CTAP: complicated acute diverticulitis of mid sigmoid colon w/ contained perf oration/diverticular abscess along lateral aspect, inflammatory tract extending from the sigmoid to urinary bladder could represent developing colovesicular fistula, no free pneumoperitoneum. Procal negative. Leukocytosis resolved. CRP 14.44, will continue to trend Surgery following: continue IR drainage & supportive care IR drain placed 08/23 --> pt w/ significant L leg pain following drain pl acement. IR PA noted pain is secondary to catheter being close to neurovascular bundle of nerves. Confirmed that sciatic nerve was not hit upon drainage & this pain is irritation to catheter placement. Pain greatly improved on 08/24 with only mild pain at the incision/drainage site. Progress diet per general surgery Zofran prn for N/V. Pain med switched to Diluadid 0.5-1mg q 3h prn Continue Zosyn & Vanco Will require colonoscopy 6-8 weeks following acute incident of diverticulitis. AM CBC, CRP #HTN- Losartan-HCTZ - hold while npo #Hypothyroidism- resume Levothyroxine Dispo: Admit, med/sx VTE Prophylaxis: SCDs Admission and Anticipated Discharge Date Admission Date: August 22, 2025 Supervising Physician Co-Signing Physician Notes The patient was not seen by me. The chart was reviewed. Case discussed with SONIDO Sweeney. Agree with assessment and plan Subjective Mrs Puckett was sitting in her bed in NAD. Pt states that her abdominal pain has decreased significantly and she is able to drink clear liquids without any difficulty or discomfort. Pt also notes that her LLE pain has decreased significantly from yesterday; noting that the pain is primarily localized around the incision for the drainage site. Physical Exam Physical Exam: General: NAD, VS as above Resp: normal respiratory effort, lungs clear to auscultation CV: RRR, no murmur Abd: normal bowel sounds, non tender, no hepatosplenomegaly Extremities: Moves all extremities, no edema Neuro: A&O x3, Skin: Drainage site at L upper glute, site is clean and without erythema. Skin is otherwise intact, no lesions noted Results & Data Results & Data Vital Signs (Past 12 Hours) Vital Signs Temp Pulse Resp BP Pulse Ox O2 Del Method 08/24/25 08:25 36.9 C 69 20 131/83 96 Room Air PG Care Time/CCT Total # of Minutes Spent Total Time Spent with Patient: Total time spent is greater than 50% in coordination of care (as documented) at patient's floor/unit and/or counseling patient: Coding Level of Care Code 29591 SUB INP/OBS CARE 2MIN Diagnoses Diverticulitis of intestine with abscess K57.80
[2025-08-24] MEDS: LOPERAMIDE HCL 2 MG CAP PO STA (21:02)
[2025-08-25] MEDS: VANCOMYCIN LEVEL ONE (06:01)
[2025-08-25 06:14] LABS: Hematocrit (blood only) 34.8 % (37.0-47.0); Hemoglobin 11.9 g/dl (12.0-16.0); Immature Granulocytes # (auto) 0.07 K/uL (0.01-0.20); Immature Granulocytes % (auto) 0.7 %; Mean Corpuscular Hemoglobin 29.3 pg (25.0-34.0); Mean Corpuscular Volume 85.7 fL (80.0-100.0); Platelet Count 293 K/uL (130-400); RDW Standard Deviation 41.9 fL (36.4-46.3); Red Blood Count 4.06 M/uL (4.20-5.40); White Blood Count 9.38 K/ul (4.8-10.8)
[2025-08-25 06:29] LABS: Anion Gap 5.0 (3-11); Blood Urea Nitrogen 6.0 mg/dl (6-23); Calcium 8.8 mg/dl (8.6-10.3); Carbon Dioxide 27.0 mmol/L (21-32); Chloride 109.0 mmol/L (98-107); Creatinine Clr Calc Pharmacy 76.8 ml/min; Glucose 96.0 mg/dl (70-99(Fasting)); Potassium 3.4 mmol/L (3.5-5.1); Sodium 141.0 mmol/L (136-145)
[2025-08-25] MEDS ORDERED: POTASSIUM CHLORIDE CRTAB 20 MEQ TABCR PO STA (07:45)
--- NOTE | 2025-08-25 07:46 | Surgery Progress Note ---
Date of Service August 25, 2025 Assessment & Plan (1) Diverticulitis of intestine with abscess: Plan: She is slowly improving Advance to full liquids today Keep drain in place, she will likely go home with this At the end of the day of the IV antibiotics and then tentative discharge home tomorrow would be reasonable Will follow Admission and Anticipated Discharge Date Admission Date: August 22, 2025 Subjective Patient seen and examined. Pain improving. Tolerating clear liquids. Afebrile. Still having some loose stools. Review of Systems Constitutional: no fever, no chills and no weakness Respiratory: no cough, no chest congestion and no dyspnea Cardiovascular: no chest pain, no palpitations and no syncope Gastrointestinal: + abdominal pain and + diarrhea/loose st ools; no nausea and no vomiting Genitourinary: no difficulty urinating and no hematuria Integumentary: no rash and no non-healing lesions Psychiatric: no behavioral changes and no depression Physical Exam Constitutional: WD/WN, vitals as above Eyes: PERRL, conjunctivae normal, anicteric sclerae Respiratory: normal respiratory effort, lungs clear to auscultation Cardiovascular: RRR, no murmur, no edema Gastrointestinal (Abdomen): Inspection/Auscultation: abdomen normal to inspection; abdomen not distended Percussion/Palpation: + abdomen tender (Mild left lower quadrant) and abdomen soft; no guarding and no hernia Musculoskeletal: no cyanosis or clubbing, extremities motor strength 5/5 Skin: no rashes, warm and dry Psychiatric: A+Ox3, euthymic affect Results & Data Vital Signs (Past 12 Hours) Vital Signs Temp Pulse Resp BP Pulse Ox O2 Del Method 08/24/25 22:19 37.2 C 85 18 130/75 96 Room Air PG Care Time/CCT Total # of Minutes Spent Total Time Spent with Patient: Total time spent is greater than 50% in coordination of care (as documented) at patient's floor/unit and/or counseling patient: Coding Level of Care Code 69541 SUB INP/OBS CARE 12/03MIN Diagnoses Diverticulitis of intestine with abscess K57.80
[2025-08-25] MEDS ORDERED: Nursing to Pharmacy Communication SCH (10:45)
[2025-08-25] MEDS: POTASSIUM CHLORIDE CRTAB 20 MEQ TABCR PO STA (11:02)
--- NOTE | 2025-08-25 12:07 | Hospitalist Progress Note ---
Date of Service August 25, 2025 Assessment & Plan (1) Diverticulitis of intestine with abscess: Plan 59-year-old female PMHx hypothyroidism, HTN, and GERD presenting for worsening abdominal pain starting 9 days [employer]. Evaluation does reveal evidence of leukocytosis, with stable H/H. CMP grossly unremarkable, and UA pending at time of admission. CTAP shows complicated diverticulitis with contained perforation/abscess present, possible developing colovesicular fistula. Admission for IV abx, with general surgery assistance. #Diverticulitis with abscess / ? Colovesicular fistula CTAP: complicated acute diverticulitis of mid sigmoid colon w/ contained perf oration/diverticular abscess along lateral aspect, inflammatory tract extending from the sigmoid to urinary bladder could represent developing colovesicular fistula, no free pneumoperitoneum. Procal negative. Leukocytosis resolved. CRP 14.44 on 08/23, will continue to trend Surgery following: continue IR drainage & supportive care IR drain placed 08/23 --> pt w/ significant L leg pain following drain placement. IR PA noted pain is secondary to catheter being close to neurovascular bundle of nerves. Confirmed that sciatic nerve was not hit upon drainage & this pain is irritation to catheter placement. No longer experiencin any leg pain and only has pain at the incision/drainage site. Continue to progress diet per general surgery Zofran prn for N/V. Pain med switched to Diluadid 0.5-1mg q 3h prn Discontinue IV Vancomycin Continue IV Zosyn Will require colonoscopy 6-8 weeks following acute incident of diverticulitis. AM CBC, CRP #HTN- Losartan-HCTZ on hold currently. #Hypothyroidism- resume Levothyroxine Dispo: Admit, med/sx VTE Prophylaxis: SCDs Admission and Anticipated Discharge Date Admission Date: August 22, 2025 Supervising Physician Co-Signing Physician Notes The patient was not seen by me. The chart was reviewed. Case discussed with SONIDO Sweeney. Agree with assessment and plan Subjective Pt was laying in bed this AM in NAD. Pt expressed that she was experiencing some mild abdominal discomfort and nausea, but denies any abdominal pain or vomiting. Pt was progressed from clear liquids to full liquids per gen surgery recommendation. Discussed abdominal culture results with patient to be positive for E.coli; explained that Vancomycin would be d/c and IV Zosyn would be continued for the duration of her inpatient stay. On discharge, pt will follow up with colorectal surgery to monitor drain, per general surgery recommendation. Pt notes that she has a mild cough this morning but denies chills, sore throat, productive cough, chest pain, and shortness of breath. Physical Exam Physical Exam: General: NAD, VS as above Resp: normal respiratory effort, lungs clear to auscultation CV: RRR, no murmur Abd: normal bowel sounds x4, non tender, no hepatosplenomegaly Extremities: Moves all extremities, no edema Neuro: A&O x3, Skin: Drainage site at L upper glute, site is clean and without erythema. Skin is otherwise intact, no lesions noted Results & Data Results & Data Vital Signs (Past 12 Hours) Vital Signs Temp Pulse Resp BP Pulse Ox O2 Del Method 08/25/25 07:47 36.7 C 66 20 147/82 H 99 Room Air 08/25/25 07:30 Room Air PG Care Time/CCT Total # of Minutes Spent Total Time Spent with Patient: Total time spent is greater than 50% in coordination of care (as documented) at patient's floor/unit and/or counseling patient: Coding Level of Care Code 73295 SUB INP/OBS CARE 235MIN Diagnoses Diverticulitis of intestine with abscess K57.80
[2025-08-25 14:15] LABS: Cdiff Toxin B Gene (2yr or >) Positive Cdiff Gene (Neg)
[2025-08-25 14:28] LABS: Adenovirus F 40/41 PCR Not Detected (NotDetected); Campylobacter PCR Not Detected (NotDetected); Enteroaggregative E.coli(EAEC) Not Detected (NotDetected); Shiga-like Toxin E.coli (STEC) Not Detected (NotDetected); Vibrio species PCR Not Detected (NotDetected)
[2025-08-25 14:51] LABS: Cdiff Toxin A+B Negative Cdiff Toxin (Negative)
[2025-08-25] MEDS: CALCIUM CARBONATE 500 MG CHEWABLE TAB PO PRN (20:56)
[2025-08-25 22:49] VITALS: O2SAT 97
[2025-08-26 07:17] LABS: Hematocrit (blood only) 32.7 % (37.0-47.0); Hemoglobin 11.1 g/dl (12.0-16.0); Immature Granulocytes # (auto) 0.05 K/uL (0.01-0.20); Immature Granulocytes % (auto) 0.6 %; Mean Corpuscular Hemoglobin 28.8 pg (25.0-34.0); Mean Corpuscular Volume 84.7 fL (80.0-100.0); Platelet Count 288 K/uL (130-400); RDW Standard Deviation 40.9 fL (36.4-46.3); Red Blood Count 3.86 M/uL (4.20-5.40); White Blood Count 9.02 K/ul (4.8-10.8)
[2025-08-26 07:47] LABS: Anion Gap 8.0 (3-11); Blood Urea Nitrogen 4.0 mg/dl (6-23); Calcium 9.1 mg/dl (8.6-10.3); Carbon Dioxide 26.0 mmol/L (21-32); Chloride 109.0 mmol/L (98-107); Creatinine Clr Calc Pharmacy 76.8 ml/min; Glucose 96.0 mg/dl (70-99(Fasting)); Potassium 3.1 mmol/L (3.5-5.1); Sodium 143.0 mmol/L (136-145)
[2025-08-26] MEDS: POTASSIUM CHLORIDE CRTAB 20 MEQ TABCR PO STA (08:13)
[2025-08-26 08:28] VITALS: RESP 20; TEMP 98.1
--- NOTE | 2025-08-26 10:54 | Discharge Summary ---
Discharge Summary Date of Service August 26, 2025 Principal Dx & Hospital Course #1 = Principal Diagnosis (1) Diverticulitis of intestine with abscess: Plan 59-year-old female PMHx hypothyroidism, HTN, and GERD presenting for worsening abdominal pain starting 9 days [employer]. Evaluation does reveal evidence of leukocytosis, with stable H/H. CMP grossly unremarkable, and UA pending at time of admission. CTAP shows complicated diverticulitis with contained perforation/abscess present, possible developing colovesicular fistula. Admission for IV abx, with general surgery assistance. #Diverticulitis with abscess / ? Colovesicular fistula CTAP: complicated acute diverticulitis of mid sigmoid colon w/ contained perforation/diverticular abscess along lateral aspect, inflammatory tract extending from the sigmoid to urinary bladder could represent developing colovesicular fistula, no free pneumoperitoneum. Procal negative. ; Leukocytosis resolved. CRP 14.44 now 4.16 did have diarrhea during stay - stool studies + for C diff gene only. Defer treatment given toxin negative. Advise against anti-diarrheals in setting of acute bowel infection & start probiotic to help with adverse effects from abx. Surgery following: continue IR drainage & supportive care --> follow up w/ colorectal outpatient. IR drain placed 08/23 --> to go home w/ drain & follow up outpatient for removal. Zofran prn for N/V. s/p vanco/zosyn while inpatient --> cultures showing E. Coli + pseduomonas --> send home on Cipro BID x 10 additional days to complete course. tolerating low fiber diet at time of discharge Will require colonoscopy 6-8 weeks following acute incident of diverticulitis. #HTN- Losartan-HCTZ resume #Hypothyroidism- Levothyroxine Discharged home 08/26 Admission HPI Per Admitting Provider 59-year-old female PMHx hypothyroidism, HTN, and GERD presenting for worsening abdominal pain starting 8 days [employer]. Pt states that ~ 1 week [employer] she awoke from sleep around 0330 with "excruciating pain". She states that she tossed and turned throughout the night and was unable to get comfortable. She states that the day after that she tried to go to a festival when she felt not great throughout the day. She called off work at the beginning of the week and then when she went back in the next day she states that she just did not feel "right". Describes her abdomen felt generalized heaviness with waves of worsening sharp pain across her lower abdomen, most severe in the left lower quadrant, but also radiating to the right lower quadrant. She states on the day of arrival her pain increased significantly, stating that it was also radiating to her back and lower aspect without radiation elsewise. She states that she has some small bowel movements that are loose in nature, but she otherwise feels that she has to have a bowel movement and is unable to. She has not noticed any blood. Not having any nausea or vomiting. She states that her last colonoscopy was approximately 10 years ago, she was told that she has diverticulosis but no other findings. Has had a hysterectomy with only 1 ovary left as well as 2 C- sections in the past. Denies chest pain, SOB, palpitations, numbness/tingling, fever/chills, LUTS, URI symptoms, weakness, syncope, or falls. Never had this happen before. ED evaluation revealed CBC with leukocytosis 14.58, H&H 12.1/36.1; CMP glucose 111, AST 10; lipase 14; troponin 3.9; UA pending; CTAP complicated acute diverticulitis of mid sigmoid colon with contained perforation/diverticular abscess along lateral aspect (5.8 x 4.1 x 5.0 cm), inflammatory tract extending from the sigmoid to the urinary bladder could represent developing colovesicular fistula, no free pneumoperitoneum; EKG sinus rhythm with PSVC and occasional PVCs with nonspecific ST abnormality at 85 bpm.; Provided with 1L NSS, vancomycin IV, Zofran 4 mg IV, and morphine 4 mg IV x [address] Please see Dr[address] Unger's attestation for adjustments/additions to treatment plan. Discharge Exam General: NAD, VS: BP 147/81; P87; T36.7C; R20 Abd: normal bowel sounds, non tender Extremities: Moves all extremities, no edema Neuro: A&O x3, Skin: intact, catheter drainage site in left gluteal region covered. dressing intact & dry without any signs of saturation. Discharge Plan Discharge Items Patient Disposition: Home - Self-Care Reason For Visit: DIVERTICULITIS WITH ABSCESS/PERF Discharge Diagnosis: diverticulitis with abscess and perforation Condition on Discharge: Good Activity: Resume your previous activity Non-emergency contact: Primary Care Provider and Specialist Call non-emergency contact if: you have any medication questions, your symptoms worsen and you have a fever Follow-up/Referrals: Shi Velasquez MD [Primary Care Provider] - (Please call your primary care provider to schedule a hospital follow-up appointment within 7-10 days) Srini Castro MD [Surgeon] - (Please call to schedule follow up with the colorectal surgeon in a 1-2 weeks) Diet: Low Fiber Addtl Attending Provider Instructions: Mrs. Puckett, You were recently hospitalized for abdominal pain. You were found to have diverticulitis with an abscess and small perforation. You had a drain placed by our interventional radiology team on 08/23. Medications: Your medication list has been reviewed and reconciled upon discharge to ensure accuracy and continuity of care. An updated list of all your medications is included with your hospital discharge paperwork. Please review this list closely, and make note of any changes. Ciprofloxacin has been sent to your pharmacy. Please take this twice daily for the next 10 days. Your first dose will be this evening, 08/26. You may take with food to avoid GI upset. Please also take a daily probiotic while in this medication. You mentioned you were going to use Align which is a great option. Please avoid anti-diarrheal medication if possible given your bowel infection. Please stay on a low fiber diet for the next 4-6 weeks. Following this time period, please switch your diet to high fiber. A handout has been provided below for you. Take your medications as instructed; do not skip a dose of your medicines. Make sure all of your doctors know every medicine you are taking (including bulz-wyc-ybptctk medicines, vitamins, and supplements). Call your primary care provider before taking any new medicines (including over- the-counter medicines, vitamins, and supplements), because some of these may interact with your current medications, or may make your symptoms worse. Tell your primary care provider if you cannot afford your medications. Activity: You can do normal everyday activities as your body allows. Take rest breaks if you feel tired. Do not overexert. Stop activity if you have pain, shortness of breath or feel dizzy. Your abdominal drain will be staying to help continue drain your abscess at home. Please flush the pigtail drain with 10ml of sterile saline daily. Nursing will show you how to do this prior to discharge and give you supplies to do this at home. Please keep the area dry and change the dressing around the insertion site every 1-2 days or if the dressing becomes wet. Follow-up appointments: Make an appointment with your primary care physician within one week of discharge. A copy of this summary will be sent to them. Every time you see your primary care physician, or any other doctor, bring your medication list, and a list of questions. Please follow up with our colorectal surgeon on discharge. Her office phone number is above if you should have questions or concerns. CONTACT YOUR PRIMARY CARE PROVIDER if you experience any of the following: Shortness of breath or difficulty breathing Fevers or chills Feeling tired with normal activity or experiencing dizziness or fainting Difficulty following your treatment plan, or difficulty taking medications CALL 911 OR GO TO THE EMERGENCY DEPARTMENT if you experience any of the following: Severe abdominal pain or nausea/vomiting Severe chest pain, or chest pain that radiates (moves) to your jaw or arm Sudden, severe shortness of breath or difficulty breathing Thank you for allowing us to participate in your care. Pending Studies at Discharge: No Stand-Alone Forms: My [facility], Smoking Cessation Medications and DC Order Prescriptions: New ciprofloxacin HCl [Cipro] 500 mg tablet 500 mg PO BID Qty: 20 0RF ondansetron 4 mg tablet,disintegrating 4 mg PO Q6H PRN (Reason: nausea and vomiting) Qty: 30 0RF Continued levothyroxine 25 mcg Tablet 25 mcg PO DAILY ibuprofen 200 mg Tablet 800 mg PO Q8 PRN (Reason: Pain) losartan-hydrochlorothiazide 50-12.5 mg tablet 1 tab PO DAILY Discharge Orders: Discharge Order (Routine); Ordered 08/26/25 Ordered By: Kymberly Almeida/Other Patient Handouts: Low-Fiber Diet Admission Data Admit Date/Time: 08/22/25 22:13 Attending Provider: Francisco J Segovia Admit Provider: Carlito Unger Primary Care Provider: Shi Velasquez Other Providers: Carlito Unger; Srini Castro Other Interventions: Discharge Summary Assessment (RN) Last Done: 08/26/25 11:02 Hospital Stay Data Consultations 08/22/25 21:20 Consult General Surgery Routine ED Decision to Admit Stat Diagnostic Imagining Performed 08/22/25 19:16 CT abd pelvis IV con only Stat 10/15/25 09:[address] periton/retro w/gdnce Stat Pending Results Patient Have Any Pending Studies at Discharge: No Discharge Instructions Given to Patient (Per Discharging Provider) Mrs. Puckett, Jewel were recently hospitalized for abdominal pain. You were found to have diverticulitis with an abscess and small perforation. You had a drain placed by our interventional radiology team on 08/23. Medications: Your medication list has been reviewed and reconciled upon discharge to ensure accuracy and continuity of care. An updated list of all your medications is included with your hospital discharge paperwork. Please review this list closely, and make note of any changes. Ciprofloxacin has been sent to your pharmacy. Please take this twice daily for the next 10 days. Your first dose will be this evening, 08/26. You may take with food to avoid GI upset. Please also take a daily probiotic while in this medication. You mentioned you were going to use Align which is a great option. Please avoid anti-diarrheal medication if possible given your bowel infection. Please stay on a low fiber diet for the next 4-6 weeks. Following this time period, please switch your diet to high fiber. A handout has been provided below for you. Take your medications as instructed; do not skip a dose of your medicines. Make sure all of your doctors know every medicine you are taking (including zayv-clr-zkjsxcx medicines, vitamins, and supplements). Call your primary care provider before taking any new medicines (including over- the-counter medicines, vitamins, and supplements), because some of these may interact with your current medications, or may make your symptoms worse. Tell your primary care provider if you cannot afford your medications. Activity: You can do normal everyday activities as your body allows. Take rest breaks if you feel tired. Do not overexert. Stop activity if you have pain, shortness of breath or feel dizzy. Your abdominal drain will be staying to help continue drain your abscess at h ome. Please flush the pigtail drain with 10ml of sterile saline daily. Nursing will show you how to do this prior to discharge and give you supplies to do this at home. Please keep the area dry and change the dressing around the insertion site every 1-2 days or if the dressing becomes wet. Follow-up appointments: Make an appointment with your primary care physician within one week of discharge. A copy of this summary will be sent to them. Every time you see your primary care physician, or any other doctor, bring your medication list, and a list of questions. Please follow up with our colorectal surgeon on discharge. Her office phone number is above if you should have questions or concerns. CONTACT YOUR PRIMARY CARE PROVIDER if you experience any of the following: Shortness of breath or difficulty breathing Fevers or chills Feeling tired with normal activity or experiencing dizziness or fainting Difficulty following your treatment plan, or difficulty taking medications CALL 911 OR GO TO THE EMERGENCY DEPARTMENT if you experience any of the following: Severe abdominal pain or nausea/vomiting Severe chest pain, or chest pain that radiates (moves) to your jaw or arm Sudden, severe shortness of breath or difficulty breathing Thank you for allowing us to participate in your care. Supervising Physician Co-Signing Physician Notes The patient was not seen by me. The chart was reviewed. Case discussed with SONIDO Sweeney. Agree with assessment and plan Total Time Total Time Spent Total Time Spent (In Minutes): 45 Total Time Includes: Examination of the Patient, Discharge Planning and Medication Reconciliation Coding Level of Care Code 49987 INP/OBS DISCH >30 MIN Diagnoses Diverticulitis of intestine with abscess K57.80
[2025-08-26 11:03] VITALS: BP 130/77; PULSE 87
--- NOTE | 2025-08-26 11:44 | Surgery Progress Note ---
Date of Service August 26, 2025 Assessment & Plan (1) Diverticulitis of intestine with abscess: Plan: She is doing very well and feels that she is ready for discharge. Tolerating diet without issue. Drain to remain in place at discharge with plans to follow up in General Surgery office. Patient instructed to call the office to set up appointment. Prescription for Cipro sent to patient's pharmacy by primary team. Patient is ok from surgical standpoint for discharge today. Patient seen and examined with Dr. Dai. Admission and Anticipated Discharge Date Admission Date: August 22, 2025 Supervising Physician Co-Signing Physician Notes Patient seen and examined, labs reviewed, agree with above. Diverticular abscess status post IR drainage, feeling much better. Tolerating diet. Having loose stool. Anxious to go home. Abdomen soft, mild tenderness to palpation in left lower quadrant. Drain with minimal output. Discharge on low fiber diet, oral antibiotics, continue drain. Follow-up with Dr. Castro with colorectal surgery in the next 1 to 2 weeks. Return precautions given. Patt Ricketts is doing well, sitting in chair beside bed. She feels well and feels ready for discharge. Physical Exam Constitutional: WD/WN, vitals as above Eyes: PERRL, conjunctivae normal, anicteric sclerae Respiratory: normal respiratory effort, lungs clear to auscultation Cardiovascular: RRR, no murmur, no edema Gastrointestinal (Abdomen): Inspection/Auscultation: abdomen normal to inspection; abdomen not distended Percussion/Palpation: + abdomen tender (Mild left lower quadrant) and abdomen soft; no guarding and no hernia IR drain in place with minimal output Musculoskeletal: no cyanosis or clubbing, extremities motor strength 5/5 Skin: no rashes, warm and dry Psychiatric: A+Ox3, euthymic affect Results & Data Vital Signs (Past 12 Hours) Vital Signs Temp Pulse Pulse Resp BP BP Pulse Ox 08/26/25 11:02 36.7 C 87 63 20 147/81 H 130/77 97 08/26/25 08:27 36.7 C 63 20 147/81 H 97 O2 Del Method 08/26/25 11:02 08/26/25 08:27 Room Air PG Care Time/CCT Total # of Minutes Spent Total Time Spent with Patient: Total time spent is greater than 50% in coordination of care (as documented) at patient's floor/unit and/or counseling patient: Coding Level of Care Code 39130 SUB INP/OBS CARE Diagnoses Diverticulitis of intestine with abscess K57.80
[2025-08-26] MEDS ORDERED: POTASSIUM CHLORIDE CRTAB 20 MEQ TABCR PO SCH (17:00)
--- NOTE | 2025-08-28 06:24 | Electrocardiogram Report ---
Test Reason : Blood Pressure : */* mmHG Vent. Rate : 85 BPM Atrial Rate : 85 BPM P-R Int : 164 ms QRS Dur : 96 ms QT Int : 366 ms P-R-T Axes : 44 -16 30 degrees QTcB Int : 435 ms Poor data quality, interpretation may be adversely affected Sinus rhythm with Premature supraventricular complexes and with occasional Premature ventricular comp lexes Nonspecific ST abnormality Abnormal ECG When compared with ECG of 30-Jul-2020 15:29, Premature ventricular complexes are now Present Premature supraventricular complexes are now Present Confirmed by Desmond Quintana ([id number]) on 08/28/2025 6:24:10 AM Referred By: REFERRED SELF Confirmed By: Desmond Quintana
== END 2025-08-26 11:35 | disposition home or self-care (01) | DRG 357 ==
LOC: ED 18:42 → SUATTDRO 22:13 → 2N 22:13

== ENCOUNTER 2025-09-06 14:32 | Inpatient (IN) ==
[2025-09-06 15:07] LABS: Hematocrit (blood only) 37.6 % (37.0-47.0); Hemoglobin 12.8 g/dl (12.0-16.0); Immature Granulocytes # (auto) 0.03 K/uL (0.01-0.20); Immature Granulocytes % (auto) 0.3 %; Mean Corpuscular Hemoglobin 29.4 pg (25.0-34.0); Mean Corpuscular Volume 86.2 fL (80.0-100.0); Platelet Count 376 K/uL (130-400); RDW Standard Deviation 45.8 fL (36.4-46.3); Red Blood Count 4.36 M/uL (4.20-5.40); White Blood Count 11.81 K/ul (4.8-10.8)
[2025-09-06 15:33] LABS: Alanine Aminotransferase 14.0 U/L (7-52); Albumin Globulin Ratio 1.1 (0.9-2); Albumin Level 3.9 gm/dl (3.4-5.0); Alkaline Phosphatase 82.0 U/L (34-104); Anion Gap 8.0 (3-11); Bilirubin,Total 0.5 mg/dl (0.2-1.0); Blood Urea Nitrogen 13.0 mg/dl (6-23); Calcium 9.7 mg/dl (8.6-10.3); Carbon Dioxide 28.0 mmol/L (21-32); Chloride 100.0 mmol/L (98-107); Creatinine Clr Calc Pharmacy 65.2 ml/min; Globulin 3.7 gm/dl (2.5-4.0); Glucose 106.0 mg/dl (70-99(Fasting)); Lipase 44.0 U/L (11-82); Potassium 2.9 mmol/L (3.5-5.1); Sodium 136.0 mmol/L (136-145); Total Protein 7.6 gm/dl (6.0-8.3)
[2025-09-06] MEDS: MoRPHine SULFATE 4 MG/ML 1 ML CARP\\VIAL IV STA (16:45)
[2025-09-06] MEDS: ONDANSETRON INJ 2 MG/ML 2 ML VIAL IV STA (16:45)
[2025-09-06 17:01] LABS: Magnesium 2.0 mg/dl (1.7-2.4)
[2025-09-06] MEDS: OPTIRAY 320 100ml IV ONE (17:02)
[2025-09-06] MEDS: POTASSIUM CHLORIDE CRTAB 20 MEQ TABCR PO STA (17:18)
--- NOTE | 2025-09-06 17:39 | CT Scan Report ---
Technique: Axial computed tomography images were obtained of the abdomen and pelvis after the administration of intravenous and oral contrast. Comparison is made to the prior CT dated 08/27/2025. Findings: The liver is overall of normal size, attenuation, and contour with no sign of cirrhosis or significant fatty infiltration. No liver mass lesion is seen. The portal vein is patent. The gallbladder has been removed. No bile duct dilatation is noted. The spleen is of normal size. No focal splenic lesion is evident. The pancreas appears normal with no sign of acute or chronic pancreatitis and no mass lesion noted. The pancreatic duct is of normal caliber. The adrenal glands appear unremarkable. No definite renal or proximal ureteral calculi are seen on this contrast-enhanced study. There is no hydronephrosis or perinephric stranding. No renal mass lesion is identified. The aorta is of normal caliber. There are small subcentimeter retroperitoneal para-aortic lymph nodes. No overt abdominal adenopathy is seen. There is a small hiatal hernia. There is no sign of small bowel obstruction. There is sigmoid diverticulosis without definite acute diverticulitis. There has been interval decrease in size of a thick-walled fluid collection adjacent to the mid sigmoid colon. A percutaneous drain is again seen within it. This measures 3.1 x 1.9 cm, previously 3.8 x 2.5 cm. There is a suspected fistulous communication between this collection and the urinary bladder. No free intraperitoneal fluid or air is identified. No distal ureteral or bladder calculi are seen. There is bladder wall thickening adjacent to the suspected fistula. The iliac arteries are of normal caliber. No pelvic adenopathy is noted. The uterus has been removed The lungs bases appear clear. Lumbar scoliosis and degenerative disc disease is seen. No fracture is identified. No focal osseous lesion is seen Impression: 1. Interval decrease in size of an abscess adjacent to the sigmoid colon, with a percutaneous drain remaining within it 2. 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 Small hiatal hernia ACT 112: Positive. There are findings on this exam that require communication between the performing entity and the patient following Patient Test Result Information Act ([place] ACT 112) guidelines. Electronically signed by Nikita Leon 09-06-2025 5:34 PM
--- NOTE | 2025-09-06 18:19 | Emergency Department Note ---
Impression & Plan Fistula, Abdominal pain, History of drainage of abscess ED Provider Note CHIEF COMPLAINT: Lower abdominal pain HISTORY OF PRESENTING ILLNESS: Patient is a 59-year-old female who presents to the emergency department today with her for complaints of lower abdominal pain and complication with a drain for an abscess in her colon. She reports this morning her flushed the drain as he does every morning and within a few minutes she had significant drainage from the area that soaked through her cloths. Afterwards she developed increased pain in the lower abdomen with some nausea. She denies any vomiting or diarrhea. She reports no changes to her normal bowel movements. Patient denies chest pain, sob, breathing difficulties, fevers or chills, blood in stool or urine. REVIEW OF SYSTEMS: See HPI for pertinent positives and pertinent negatives. ALLERGIES: See below MEDICATIONS: See below PAST MEDICAL HISTORY: See below PHYSICAL EXAM: VITALS: Vitals are noted on the nurse's note and reviewed by myself. GENERAL: Non toxic, in no acute distress, non-diaphoretic. SKIN: Capillary refill <2 sec. MOUTH: Mucous membranes moist. Uvula midline. Airway patent. NECK: Supple without nuchal rigidity. HEART: Regular rate and rhythm without murmurs gallops or rubs. LUNGS: Clear to auscultation bilaterally without wheezes, rales or rhonchi. No retractions or accessory muscle use. ABDOMEN: Positive bowel sounds x 4. Normal tympanic percussion. Soft, nontender to palpation. No masses or hepatosplenomegaly. León sign negative. No CVA tenderness. No guarding, rigidity, or rebound tenderness. No focal RLQ or LLQ tenderness. MUSCULOSKELETAL: No gross musculoskeletal defects. NEURO: Patient was alert and oriented. No focal neurological deficits. DIFFERENTIAL DIAGNOSIS: Differential diagnosis includes appendicitis, diverticulitis, constipation, gastroenteritis, bowel obstruction, cholecystitis, appendicitis, inflammatory bowel disease, renal colic, PUD, biliary pathology, pancreatitis, mesenteric ischemia, aortic pathology, infection, genitourinary, UTI, perforated viscus, among others. ED COURSE AND MEDICAL DECISION MAKING: HISTORY FROM INDEPENDENT HISTORIAN: History was provided by the patient and and patient's who is at bedside and secondary historian. MONITOR: Continuous director of cardiac rehabilitation: Order was placed for continuous director of cardiac rehabilitation. Patient was placed on the director of cardiac rehabilitation and continuous pulse ox. Patient was noted to be in normal sinus rhythm at an initial rate of 74 bpm per my interpretation. INTERPRETATION OF LABS: I interpreted the labs with full lab results as below in the lab section of this note. Laboratory results pertinent to the emergent complaint are discussed in the MDM section below. The patient was advised to follow up with their PCP and/or specialist(s) for further outpatient monitoring and management of any abnormal results. INTERPRETATION OF IMAGING: Imaging studies were interpreted by myself and read by radiology as per the imaging section of this note. The patient was advised to follow up with their PCP and/or specialist(s) for further outpatient management of any non-emergent abnormal findings. CHRONIC MEDICAL/SOCIAL CONDITIONS AFFECTING CARE: No social concerns were identified as barriers to patients care. EXTERNAL RECORDS REVIEWED: Patient's previous hospital admission from 08/23/2025 and her last ER visit from 08/27/2025 related to the same complaints. ESCALATION OF CARE CONSIDERED: I considered admission on this patient due to a developing fistula. CONSULTATIONS: I had a meaningful discussion about this patient with Dr. Chakraborty who agrees with my assessment and the treatment plan. I also consulted with Dr. Castro from colorectal surgery who is recommending admission and will plan to see the patient tomorrow morning. I consulted with Dr. Humaira Montemayor the hospitalist for admission. SUMMARY: I examined the patient for complaints of lower abdominal pain. A physical exam and history were performed. Nursing notes, EMR, and medication list were personally reviewed. CBC shows a mild leukocytosis with a white blood cell count of 11.81. No anemia or thrombocytopenia. CMP did show a potassium of 2.9 otherwise no emergent findings. Patient was given potassium 40 mill equivalents p.o. and tolerated well. Urinalysis was pending upon admission. CT of the abdomen and pelvis showed decrease in abscess size in the sigmoid colon with a percutaneous drain remaining within it. There is an apparent fistulous communication between the abscess and the urinary bladder. And there is a small hiatal hernia. I did consult with Dr. Castro who will plan to see the patient tomorrow morning and plan for surgery. I consulted with Dr. Humaira Montemayor the hospitalist who accepts the patient for admission. 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 The chart was completed utilizing [employer] Speech voice recognition software.Grammatical errors, random word insertions, pronoun errors, and incomplete sentences are an occasional consequence of this system due to software limitations, ambient noise, and hardware issues.Any formal questions or concerns about the content, text, or information contained within the body of this dictation should be directly addressed to the physician for clarification. Past Med/Surg History Problem List (Updated 09/06/25 @ 22:32 by VINICIO Harden) History of drainage of abscess (Acute) Abdominal pain (Acute) Fistula (Acute) Hypokalemia (Acute) Diverticulitis of intestine with abscess (Acute) Diverticulitis large intestine (Acute) Gastroesophageal reflux disease Thyroid disease History of cholecystectomy History of appendectomy History of hysterectomy Vaginal discharge (Acute) Social History Smoking Status: Never smoker Second Hand Exposure: No; Do You Dip or Chew Tobacco: No; Tobacco Cessation Education Requested by Patient: No Hx Alcohol Use: No Hx Substance Use: No Preferred Language: Ukrainian Communication Ability: Effective Print Producer Required: No Beliefs That Will Affect Care: None marital status: Current Living Situation: Spouse current occupational status: employed Other Information That Helps Us Care for You: No Feels Safe at Home: Yes Safety Concerns: Feels Safe At This Time Assistive Devices: Glasses and Hearing Aid - Bilateral Allergies Allergies Allergy/AdvReac Type Severity Reaction Status Date / Time aluminum hydroxide Allergy Severe hives and Verified 08/23/25 07:59 [From Maalox Maximum swelling Strength] atropine [From ] Allergy Severe hives and Verified 08/23/25 07:59 swelling hyoscyamine [From ] Allergy Severe hives and Verified 08/23/25 07:59 swelling lidocaine Allergy Severe hives and Verified 08/23/25 07:59 swelling magnesium hydroxide Allergy Severe hives and Verified 08/23/25 07:59 [From Maalox Maximum swelling Strength] phenobarbital [From ] Allergy Severe hives and Verified 08/23/25 07:59 swelling scopolamine [From ] Allergy Severe hives and Verified 08/23/25 07:59 swelling simethicone Allergy Severe hives and Verified 08/23/25 07:59 [From Maalox Maximum swelling Strength] hydroxyzine Allergy Intermediate hives Verified 08/22/25 21:26 ketorolac Allergy Intermediate HIVES Verified 08/22/25 21:26 metoclopramide Allergy Intermediate hives Verified 08/22/25 21:26 Home Meds Home Medications Medication Instructions Recorded Confirmed levothyroxine 25 mcg tablet 25 mcg PO DAILY 07/30/20 09/06/25 ibuprofen 200 mg tablet 800 mg PO Q8 PRN Pain 02/21/23 09/06/25 losartan 50 mg-hydrochlorothiazide 1 tab PO DAILY 02/21/23 09/06/25 12.5 mg tablet omeprazole 20 mg capsule,delayed 20 mg PO DAILY 09/06/25 09/06/25 release Previous Rx's Medication Instructions Recorded ondansetron 4 mg disintegrating 4 mg PO Q6H PRN nausea and 08/26/25 tablet vomiting #30 tabs tramadol 50 mg tablet 50 mg PO Q6H PRN pain #7 tabs 08/26/25 Results & Data (ED) Vital Signs Vital Signs - 24 hr 09/06/25 14:34 09/06/25 17:18 Temperature 36.6 C Temperature Source Temporal Artery Scan Pulse Rate 82 Pulse Rate [Right Finger] 74 Respiratory Rate 16 19 Respiratory Effort / Characteristics Non-Labored Spontaneous Respiratory Depth Normal Respiratory Pattern Regular Blood Pressure 146/77 H Blood Pressure [Right Arm] 157/73 H Blood Pressure Mean 100 Blood Pressure Mean [Right Arm] 101 Blood Pressure Position Lying Pulse Oximetry 99 100 Oxygen Delivery Method Room Air Sepsis Recent Fever Within 48 Hours No Sepsis New/Unexplained Change in Mental Status No Sepsis Action Taken by Nursing No Action Required Laboratory Data 09/06/25 14:55 09/06/25 14:55 Lab Results 09/06/25 Range/Units 14:55 WBC 11.81 H (4.8-10.8) K/ul RBC 4.36 (4.20-5.40) M/uL Hgb 12.8 (12.0-16.0) g/dl Hct 37.6 (37.0-47.0) % MCV 86.2 (80.0-100.0) fL MCH 29.4 (25.0-34.0) pg MCHC 34.0 (32.0-36.0) g/dL RDW Std Deviation 45.8 (36.4-46.3) fL RDW Coeff of Mayela 14.6 H (11.5-14.5) % Plt Count 376 (130-400) K/uL MPV 9.5 (9.4-12.4) fL Immature Gran % (Auto) 0.3 % Neut % (Auto) 74.4 % Lymph % (Auto) 16.4 % [place] % (Auto) 6.2 % Eos % (Auto) 2.4 % Baso % (Auto) 0.3 % Neut # (Auto) 8.79 H (1.40-6.50) K/uL Lymph # (Auto) 1.94 (1.20-3.40) K/uL [place] # (Auto) 0.73 H (0.11-0.59) K/uL Eos # (Auto) 0.28 (0.00-0.50) K/uL Baso # (Auto) 0.04 (0.00-0.20) K/uL Immature Gran # (Auto) 0.03 (0.01-0.20) K/uL PT 10.3 (9.0-12.0) Seconds INR 1.0 (0.9-1.1) APTT 27 (21-31) Seconds PTT Ratio 1.0 Sodium 136 (136-145) mmol/L Potassium 2.9 L (3.5-5.1) mmol/L Chloride 100 (98-107) mmol/L Carbon Dioxide 28 (21-32) mmol/L Anion Gap 8 (3-11) BUN 13 (6-23) mg/dl Creatinine 1.00 (0.6-1.2) mg/dl Est Cr Clr Drug Dosing 65.2 ml/min eGFR 64.09 BUN/Creatinine Ratio 13.0 (10-20) Glucose 106 H (70-99(Fasting)) mg/dl Calcium 9.7 (8.6-10.3) mg/dl Magnesium 2.0 (1.7-2.4) mg/dl Total Bilirubin 0.5 (0.2-1.0) mg/dl AST 10 L (13-39) U/L ALT 14 (7-52) U/L Alkaline Phosphatase 82 (34-104) U/L Total Protein 7.6 (6.0-8.3) gm/dl Albumin 3.9 (3.4-5.0) gm/dl Globulin 3.7 (2.5-4.0) gm/dl Albumin/Globulin Ratio 1.1 (0.9-2) Lipase 44 (11-82) U/L Administered Medications Acetaminophen (Ofirmev) 1,000 mg in 100 mls @ 400 mls/hr IV Q8H [facility] Stop: 09/09/25 20:14 Last Infusion: 09/06/25 21:40 Dose: Infused Documented By: Admin: 09/06/25 21:22 Dose: 400 mls/hr Documented By: ALLISON Potassium Chloride (K Shiraz / Wtr) 10 meq in 100 mls @ 100 mls/hr IV Q1H [facility] Stop: 09/06/25 23:59 Last Admin: 09/06/25 21:33 Dose: 100 mls/hr Documented By: KIERAW Potassium Chloride/Sodium Chloride (Normal Saline W/20 Meq Kcl) 20 meq in 1,000 mls @ 80 mls/hr IV .[id number] [facility] Stop: 09/09/25 19:59 Last Admin: 09/06/25 21:19 Dose: 80 mls/hr Documented By: ALLISON Discontinued Medications Hydromorphone HCl (Hydromorphone Inj 0.5 Mg/0.5 Ml Syr) 0.5 mg IV NOW STA Stop: 09/06/25 18:27 Last Admin: 09/06/25 18:36 Dose: 0.5 mg Documented By: ENEDELIA Piperacillin Sod/Tazobactam Sod (Zosyn) 4.5 gm in 100 mls @ 200 mls/hr IV NOW ONE; Protocol Stop: 09/06/25 19:00 Last Infusion: 09/06/25 19:17 Dose: Infused Documented By: Admin: 09/06/25 18:36 Dose: 200 mls/hr Documented By: ENEDELIA Ioversol (Optiray 320 100ml) 90 ml IV ONCE ONE Stop: 09/06/25 17:03 Last Admin: 09/06/25 17:02 Dose: 90 ml Documented By: JC Morphine Sulfate (Morphine Sulfate 4 Mg/Ml 1 Ml Carp\Vial) 4 mg IV NOW STA Stop: 09/06/25 16:34 Last Admin: 09/06/25 16:45 Dose: 4 mg Documented By: FABIANA Ondansetron HCl (Ondansetron Inj 2 Mg/Ml 2 Ml Vial) 4 mg IV NOW STA Stop: 09/06/25 16:34 Last Admin: 09/06/25 16:45 Dose: 4 mg Documented By: ASW Potassium Chloride (Potassium Chloride Crtab 20 Meq Tabcr) 40 meq PO NOW STA Stop: 09/06/25 17:12 Last Admin: 09/06/25 17:18 Dose: 40 meq Documented By: ASW Imaging Data Radiologist's Impression: Abdomen/Pelvis CT 09/06/25 16:33 Technique: Axial computed tomography images were obtained of the abdomen and pelvis after the administration of intravenous and oral contrast. Comparison is made to the prior CT dated 08/27/2025. Findings: The liver is overall of normal size, attenuation, and contour with no sign of cirrhosis or significant fatty infiltration. No liver mass lesion is seen. The portal vein is patent. The gallbladder has been removed. No bile duct dilatation is noted. The spleen is of normal size. No focal splenic lesion is evident. The pancreas appears normal with no sign of acute or chronic pancreatitis and no mass lesion noted. The pancreatic duct is of normal caliber. The adrenal glands appear unremarkable. No definite renal or proximal ureteral calculi are seen on this contrast-enhanced study. There is no hydronephrosis or perinephric stranding. No renal mass lesion is identified. The aorta is of normal caliber. There are small subcentimeter retroperitoneal para-aortic lymph nodes. No overt abdominal adenopathy is seen. There is a small hiatal hernia. There is no sign of small bowel obstruction. There is sigmoid diverticulosis without definite acute diverticulitis. There has been interval decrease in size of a thick-walled fluid collection adjacent to the mid sigmoid colon. A percutaneous drain is again seen within it. This measures 3.1 x 1.9 cm, previously 3.8 x 2.5 cm. There is a suspected fistulous communication between this collection and the urinary bladder. No free intraperitoneal fluid or air is identified. No distal ureteral or bladder calculi are seen. There is bladder wall thickening adjacent to the suspected fistula. The iliac arteries are of normal caliber. No pelvic adenopathy is noted. The uterus has been removed The lungs bases appear clear. Lumbar scoliosis and degenerative disc disease is seen. No fracture is identified. No focal osseous lesion is seen Impression: 1. Interval decrease in size of an abscess adjacent to the sigmoid colon, with a percutaneous drain remaining within it 2. 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 Small hiatal hernia ACT 112: Positive. There are findings on this exam that require communication between the performing entity and the patient following Patient Test Result Information Act ([place] ACT 112) guidelines. Electronically signed by Niikta Leon 09-06-2025 5:34 PM Discharge Plan Visit Data Chief Complaint: Abdominal Pain Stated Complaint: ABD PAIN ED Provider: Marcos Chakraborty ED Midlevel Provider: Gloria Morrison Discharge Problem: Fistula, Abdominal pain, History of drainage of abscess Patient Disposition: Admitted As Inpatient Condition: Good Discharge Instructions Interventions: ED Discharge Assessment Last Done: 09/06/25 21:05 Discharge Problem: Abdominal pain Qualifiers: Abdominal location: generalized Qualified Code(s): R10.84 - Generalized abdominal pain
[2025-09-06] MEDS: PIPERACILLIN/TAZOBACTAM 4.5 GM/100 ML BAG IV ONE (18:36)
[2025-09-06] MEDS: HYDROmorphone INJ 0.5 MG/0.5 ML SYR IV STA (18:36)
--- NOTE | 2025-09-06 18:49 | History & Physical Report ---
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 Will consult mariana currently with IR drain but unsure if it has been lodged out. IR drain placed 08/23 --> to go home w/ drain & follow up outpatient for removal. previous cultures showed E. Coli + pseduomonas --> was sent home on Cipro BID x 10 additional days/ completed course. tolerating low fiber diet at time of discharge will likely require abd. surgery to treat fistula and abscess Will require colonoscopy 6-8 weeks following acute incident of diverticulitis. #HTN- Losartan-HCTZ resume #Hypothyroidism- Levothyroxine History of Present Illness Chief Complaint: worsening abdominal pain. Primary Care Provider: Shi Velasquez MD 59-year-old female PMHx hypothyroidism, HTN, and GERD presenting for worsening abdominal pain.Patient was recently discharged from this hospital on 08/26 for diverticulitis and an abscess. There was concern for a colovesical fistula on imaging. Patient had interventional radiology place a drain to treat the abscess. Patient reports that her husbands helps flush the drain but today there did not feel any pain which is typical but a fullness, this was then followed by drainage. Patient then noticed her abdominal pain getting worse. Pain is dull anterior and in both lower quadrants. Allergies Allergy/AdvReac Type Severity Reaction Status Date / Time aluminum hydroxide Allergy Severe hives and Verified 08/23/25 07:59 [From Maalox Maximum swelling Strength] atropine [From ] Allergy Severe hives and Verified 08/23/25 07:59 swelling hyoscyamine [From ] Allergy Severe hives and Verified 08/23/25 07:59 swelling lidocaine Allergy Severe hives and Verified 08/23/25 07:59 swelling magnesium hydroxide Allergy Severe hives and Verified 08/23/25 07:59 [From Maalox Maximum swelling Strength] phenobarbital [From ] Allergy Severe hives and Verified 08/23/25 07:59 swelling scopolamine [From ] Allergy Severe hives and Verified 08/23/25 07:59 swelling simethicone Allergy Severe hives and Verified 08/23/25 07:59 [From Maalox Maximum swelling Strength] hydroxyzine Allergy Intermediate hives Verified 08/22/25 21:26 ketorolac Allergy Intermediate HIVES Verified 08/22/25 21:26 metoclopramide Allergy Intermediate hives Verified 08/22/25 21:26 Home Medications Medication Instructions Recorded Confirmed Type levothyroxine 25 mcg tablet 25 mcg PO DAILY 07/30/20 09/06/25 History ibuprofen 200 mg tablet 800 mg PO Q8 PRN Pain 02/21/23 09/06/25 History losartan 50 mg-hydrochlorothiazide 1 tab PO DAILY 02/21/23 09/06/25 History 12.5 mg tablet ondansetron 4 mg disintegrating 4 mg PO Q6H PRN nausea and 08/26/25 09/06/25 Rx tablet vomiting #30 tabs tramadol 50 mg tablet 50 mg PO Q6H PRN pain #7 tabs 08/26/25 09/06/25 Rx omeprazole 20 mg capsule,delayed 20 mg PO DAILY 09/06/25 09/06/25 History release Past Med/Surg History Problem List History of drainage of abscess (Acute) Abdominal pain (Acute) Fistula (Acute) Hypokalemia (Acute) Diverticulitis of intestine with abscess (Acute) Diverticulitis large intestine (Acute) Gastroesophageal reflux disease Thyroid disease History of cholecystectomy History of appendectomy History of hysterectomy Vaginal discharge (Acute) Social History Smoking Status: Never smoker Second Hand Exposure: No; Do You Dip or Chew Tobacco: No; Tobacco Cessation Education Requested by Patient: No Hx Alcohol Use: No Hx Substance Use: No Preferred Language: Martiniquais Communication Ability: Effective Acls Specialist Required: No Beliefs That Will Affect Care: None marital status: Current Living Situation: Spouse current occupational status: employed Other Information That Helps Us Care for You: No Feels Safe at Home: Yes Safety Concerns: Feels Safe At This Time Assistive Devices: None Review of Systems Constitutional: no fever and no body aches Eyes: no blind spots Ear, Nose, Mouth, Throat: no ear pain Respiratory: no cough Cardiovascular: no chest pain Gastrointestinal: + abdominal pain; no early satiety Genitourinary: no dysuria Musculoskeletal: no back pain Integumentary: no acne Neurologic: no gait abnormality and no localized weakness Psychiatric: no behavioral changes and no anhedonia Endocrine: no fatigue Hematologic / Lymphatic: no easy bleeding Allergy / Immunological: no GI upset with certain foods Physical Exam Constitutional: WD/WN, vitals as above Eyes: PERRL, conjunctivae normal, anicteric sclerae ENMT: external ear and nose normal, oropharynx normal Neck: trachea midline, no thyromegaly Respiratory: normal respiratory effort, lungs clear to auscultation Cardiovascular: RRR, no murmur, no edema Gastrointestinal (Abdomen): Inspection/Auscultation: + abdominal surgical drain present Percussion/Palpation: + abdomen tender (b/l lower quadrants) and abdomen soft; abdomen not rigid Skin: no rashes, warm and dry Neurologic: PERRL, EOMI, accommodation nl, no face palsy, no dysarthria Psychiatric: A+Ox3, euthymic affect Results & Data Results & Data Vital Signs (Past 12 Hours) Vital Signs Temp Pulse Pulse Resp BP BP Pulse Ox 09/06/25 17:18 74 19 157/73 H 100 09/06/25 14:34 36.6 C 82 16 146/77 H 99 O2 Del Method 09/06/25 17:18 09/06/25 14:34 Room Air PG Care Time/CCT Total # of Minutes Spent Total Time Spent with Patient: Total time spent is greater than 50% in coordination of care (as documented) at patient's floor/unit and/or counseling patient: Coding Level of Care Code 50113 INT INP/OBS CARE 375MIN Diagnoses Diverticulitis of intestine with abscess K57.20 Diverticulitis bleeding: unspecified bleeding status Diverticulitis site: large intestine (1) Diverticulitis of intestine with abscess Diverticulitis bleeding: unspecified bleeding status Diverticulitis site: large intestine Qualified Code(s): K57.20 - Diverticulitis of large intestine with perforation and abscess without bleeding
--- NOTE | 2025-09-06 19:37 | Surgery Consultation ---
Date of Consultation September 06, 2025 Assessment & Plan (1) Diverticulitis of intestine with abscess: The patient has been admitted on the hospitalist service. From a surgical perspective we recommend the following: Provide analgesics Provide antiemetics Maintain patient's percutaneous drain Hydrate the patient with intravenous fluids correcting electrolyte abnormalities Follow serial labs Antibiotics in form of Zosyn been initiated and he should continue I feel that it would be acceptable for patient have clear liquids up until midnight tonight at which time we will make her n.p.o. I discussed the case with my surgical attending, Dr. Castro--she feels the patient may require surgical intervention but the timing is yet to be determined. We will make her n.p.o. at midnight as noted above in case she feels surgery is required tomorrow on 09/07/2025. I did discuss with the patient that we may delay her surgery in efforts to provide her with a bowel prep. The patient did ask me if there is a possibility that she has underlying colon cancer and I told her that I could not definitively ascertain this with the information I have a hand and that the only way to determine this is via sending a pathologic specimen which has not been performed yet Additional recommendations will be forthcoming based on her clinical course as it unfolds History of Present Illness Reason for Consultation: Abdominal abscess with percutaneous drain and history of diverticulitis History of Present Illness During, seems show, this is a 59-year-old female who is well-known to manage history of general surgery. The patient was admitted from 08/22/2025 through 08/26/2025 secondary to diverticulitis with an abscess. During this admission the patient was noted to have diverticulitis of the sigmoid colon via CT scanshe was also noted to have a diverticular abscess measuring 5.8 x 4.3 x 5.0 cm. Patient had a percutaneous drain placed on 08/23/2025. Patient was able to be discharged home with a percutaneous drain placed on 08/26/2025 with plans to follow-up with Dr. Castro of [facility] colorectal surgery. The patient notes that she was discharged home on a course of Keflex which she finished yesterday. Patient presented to the emergency department today secondary to worsening lower abdominal pain. The patient says that she and her were instructed on how to flush her drain which they have been doing daily. The patient says that she usually develops some discomfort with her drain being flushed but today when her flush the drain she had less discomfort than usual but then she had a large amount of drainage from around the drain insertion site. She subsidy developed a worsening abdominal pain noted above. She has had intermittent nausea and vomiting. She denies any fevers, shakes, or chills. She notes that she has been having normal bowel movements with her most recent bowel movement this afternoon. Her most recent oral intake was at approximately 11:00 AM this morning. She notes that she has not had a colonoscopy in approximately 15 years but at that time she noted no abnormalities were reported to her. She denies any family history of colon cancer. Patient has had prior abdominal surgeriesshe has had 2 C-sections, she has had 3 exploratory laparoscopies, and she has had a hysterectomy secondary to dysfunctional uterine bleeding. In addition, the patient denies any dysuria, pneumaturia, or hematuria. Today in the emergency department she had labs and imaging which I independently reviewed. A CT scan of the abdomen pelvis shows the patient has a decrease in size of the previously noted abscessit is now measuring 3.1 x 1.9 cm. The patient does not have evidence of definite diverticulitis. There is concern the patient may have a fistulous communication between the noted abscess in the urinary bladder. Labs included a CBC were white blood cell count is 11.8. Hemoglobin, hematocrit, and platelet count are normal. Chemistry profile showed sodium was normal with a potassium of 2.9. BUN and creatinine are both normal. At the time of my interview the patient was resting comfortably in bed and she was in no distress Allergies Allergy/AdvReac Type Severity Reaction Status Date / Time aluminum hydroxide Allergy Severe hives and Verified 08/23/25 07:59 [From Maalox Maximum swelling Strength] atropine [From ] Allergy Severe hives and Verified 08/23/25 07:59 swelling hyoscyamine [From ] Allergy Severe hives and Verified 08/23/25 07:59 swelling lidocaine Allergy Severe hives and Verified 08/23/25 07:59 swelling magnesium hydroxide Allergy Severe hives and Verified 08/23/25 07:59 [From Maalox Maximum swelling Strength] phenobarbital [From ] Allergy Severe hives and Verified 08/23/25 07:59 swelling scopolamine [From ] Allergy Severe hives and Verified 08/23/25 07:59 swelling simethicone Allergy Severe hives and Verified 08/23/25 07:59 [From Maalox Maximum swelling Strength] hydroxyzine Allergy Intermediate hives Verified 08/22/25 21:26 ketorolac Allergy Intermediate HIVES Verified 08/22/25 21:26 metoclopramide Allergy Intermediate hives Verified 08/22/25 21:26 Home Medications Medication Instructions Recorded Confirmed Type levothyroxine 25 mcg tablet 25 mcg PO DAILY 07/30/20 09/06/25 History ibuprofen 200 mg tablet 800 mg PO Q8 PRN Pain 02/21/23 09/06/25 History losartan 50 mg-hydrochlorothiazide 1 tab PO DAILY 02/21/23 09/06/25 History 12.5 mg tablet ondansetron 4 mg disintegrating 4 mg PO Q6H PRN nausea and 08/26/25 09/06/25 Rx tablet vomiting #30 tabs tramadol 50 mg tablet 50 mg PO Q6H PRN pain #7 tabs 08/26/25 09/06/25 Rx omeprazole 20 mg capsule,delayed 20 mg PO DAILY 09/06/25 09/06/25 History release Patient History Social History Smoking Status: Never smoker Second Hand Exposure: No; Do You Dip or Chew Tobacco: No; Tobacco Cessation Education Requested by Patient: No Hx Alcohol Use: No Hx Substance Use: No Preferred Language: Pakistani Communication Ability: Effective Chiropractic Physician Required: No Beliefs That Will Affect Care: None marital status: Current Living Situation: Spouse current occupational status: employed Other Information That Helps Us Care for You: No Feels Safe at Home: Yes Safety Concerns: Feels Safe At This Time Assistive Devices: None Review of Systems Review of Systems: All systems reviewed & are unremarkable except as noted in HPI & below Physical Exam Constitutional: WD/WN, vitals as above Eyes: no conjunctival abnormality ENMT: Ears: no hearing impairment and no external ear abnormality Mouth: no oropharynx abnormality Neck: trachea midline Respiratory: normal respiratory effort; no respiratory distress and no labored breathing Cardiovascular: Rate/Rhythm: regular rate and regular rhythm Gastrointestinal (Abdomen): Patient's abdomen was examinedis soft and nontender without rigidity, rebound tenderness, guarding, or signs of peritonitis. Patient has percutaneous drain in her left flank region draining dark-colored fluid. Musculoskeletal: No calf tenderness Neurologic: moves all extremities Psychiatric: Orientation: alert and oriented x 3 Affect: + anxious affect Results & Data Vital Signs (Past 12 Hours) Vital Signs Temp Pulse Pulse Resp BP BP Pulse Ox 09/06/25 17:18 74 19 157/73 H 100 09/06/25 14:34 36.6 C 82 16 146/77 H 99 O2 Del Method 09/06/25 17:18 09/06/25 14:34 Room Air PG Care Time/CCT Total # of Minutes Spent Total Time Spent with Patient: Total time spent is greater than 50% in coordination of care (as documented) at patient's floor/unit and/or counseling patient: Coding Level of Care Code 57095 IN/OBS CONSULT LVL 5,80M Diagnoses Diverticulitis of intestine with abscess K57.20 Diverticulitis bleeding: unspecified bleeding status Diverticulitis site: large intestine (1) Diverticulitis of intestine with abscess Diverticulitis bleeding: unspecified bleeding status Diverticulitis site: large intestine Qualified Code(s): K57.20 - Diverticulitis of large intestine with perforation and abscess without bleeding
[2025-09-06 21:12] LABS: INR 1.0 (0.9-1.1); Partial Thromboplastin Time 27 Seconds (21-31); Prothrombin Time 10.3 Seconds (9.0-12.0)
[2025-09-06] MEDS: NSS + 20MEQ KCL 20 MEQ/1,000 ML BAG IV SCH (21:19)
[2025-09-06] MEDS: ACETAMINOPHEN 1,000 MG/100 ML VIAL IV SCH (21:22)
[2025-09-06] MEDS: POTASSIUM CHLORIDE / WTR 10 MEQ/100 ML PLCT IV SCH (21:33)
[2025-09-06] MEDS: PIPERACILLIN/TAZOBACTAM 4.5 GM/100 ML BAG IV SCH (23:54)
[2025-09-07] MEDS: LEVOTHYROXINE SODIUM 25 MCG TABLET PO SCH (05:31)
[2025-09-07 06:08] LABS: Appearance Urine Clear (Clear); Bacteria Urine Automated None Seen (None Seen); Epithelial Cell Urine Auto 0-2 /hpf (0-2); Glucose Urine UA Negative (Negative); WBC Urine Automated 0-5 /hpf (0-5)
[2025-09-07] MEDS: HYDROmorphone INJ 0.5 MG/0.5 ML SYR IV PRN (08:32)
[2025-09-07 08:52] LABS: Hematocrit (blood only) 34.4 % (37.0-47.0); Hemoglobin 11.2 g/dl (12.0-16.0); Mean Corpuscular Hemoglobin 28.4 pg (25.0-34.0); Mean Corpuscular Volume 87.1 fL (80.0-100.0); Platelet Count 301 K/uL (130-400); RDW Standard Deviation 46.8 fL (36.4-46.3); Red Blood Count 3.95 M/uL (4.20-5.40); White Blood Count 9.18 K/ul (4.8-10.8)
[2025-09-07 09:05] LABS: Anion Gap 7.0 (3-11); Blood Urea Nitrogen 11.0 mg/dl (6-23); Calcium 8.6 mg/dl (8.6-10.3); Carbon Dioxide 26.0 mmol/L (21-32); Chloride 106.0 mmol/L (98-107); Creatinine Clr Calc Pharmacy 74.9 ml/min; Glucose 100.0 mg/dl (70-99(Fasting)); Potassium 3.8 mmol/L (3.5-5.1); Sodium 139.0 mmol/L (136-145)
--- NOTE | 2025-09-07 14:01 | Surgery Progress Note ---
Date of Service September 07, 2025 Assessment & Plan (1) Diverticulitis of intestine with abscess: Plan: The patient has been admitted on the hospitalist service. Patient has failed nonoperative management and plan will be for resection during this admission but hopefully can do this with an anastomosis, therefore recommend continued IV antibiotics to allow for inflammation to go down and plan will be for laparoscopic sigmoidectomy with primary anastomosis, possible ostomy on Thursday. I also will have urology involved for cystoscopy and bilateral ureteral stents and possibly need for bladder repair. Risks of surgery were discussed with the patient and they include bleeding, infection, injury to surrounding structures, need for further procedures, and cardiopulmonary events that can occur. Risks also include anastomotic leak, wound infection, wound dehiscence, and hernia. Alternatives include no surgery, which patient declines. Patient wishes to proceed with surgery. All questions were answered. Admission and Anticipated Discharge Date Admission Date: September 06, 2025 Subjective Patient is a 59-year-old female who is well-known to me who was admitted previously for diverticulitis of the sigmoid colon with abscess, status post drain placement as well as possible colovesical fistula, although she is asymptomatic from this. She came into the emergency room with worsening abdominal pain however on questioning, it appears to be that the pain is mainly at the level of the drain site. Her last colonoscopy was about 10 years ago and she was told she had diverticulosis but otherwise did not have any concerning findings. She has no pertinent family medical history. The plan was at her last admission was for her to follow-up with me and schedule elective colonic resection. Patient had repeat imaging yesterday with CT of abdomen and pelvis that I reviewed as well that shows the abscess with diverticular disease of the level of the sigmoid colon with a possible fistula tract from the abscess and possibly from the colon to the bladder. There is no free air. patient's white blood cell count was elevated when she came in but now is improved and her potassium was low but now also has improved. Review of Systems Review of Systems: All systems reviewed & are unremarkable except as noted in HPI & below Constitutional: as per Subjective / HPI Physical Exam Constitutional: WD/WN, vitals as above Eyes: PERRL, conjunctivae normal, anicteric sclerae ENMT: external ear and nose normal, oropharynx normal Neck: trachea midline, no thyromegaly Respiratory: Normal effort Cardiovascular: Rate/Rhythm: regular rate Gastrointestinal (Abdomen): Soft, nondistended, mildly tender to palpation without any guarding or peritoneal signs, drain with small amount of purulent fluid Musculoskeletal: no concerning abnormalities Skin: No concerning abnormalities Neurologic: No concerning abnormalities Psychiatric: A+Ox3, euthymic affect Somewhat distressed over current condition Results & Data Vital Signs (Past 12 Hours) Vital Signs Temp Pulse Resp BP Pulse Ox O2 Del Method 09/07/25 07:27 36.6 C 63 18 115/73 99 Room Air 09/06/25 22:56 36.8 C 58 L 18 114/71 99 Room Air 09/06/25 21:05 Room Air 09/06/25 20:07 36.7 C 66 16 126/79 100 Room Air PG Care Time/CCT Total # of Minutes Spent Total Time Spent with Patient: Total time spent is greater than 50% in coordination of care (as documented) at patient's floor/unit and/or counseling patient: Coding Level of Care Code 11223 SUB INP/OBS CARE 2MIN Diagnoses Diverticulitis of intestine with abscess K57.20 Diverticulitis bleeding: unspecified bleeding status Diverticulitis site: large intestine (1) Diverticulitis of intestine with abscess Diverticulitis bleeding: unspecified bleeding status Diverticulitis site: large intestine Qualified Code(s): K57.20 - Diverticulitis of large intestine with perforation and abscess without bleeding
--- NOTE | 2025-09-07 22:30 | Hospitalist Progress Note ---
Date of Service September 07, 2025 Assessment & Plan (1) Diverticulitis of intestine with abscess: Plan #Diverticulitis with abscess / with possible Colovesicular fistula Will admit to medicine. Will consult mariana: plan for surgery on 09/11 currently with IR drain but unsure if it has been lodged out. IR drain placed 08/23 --> to go home w/ drain & follow up outpatient for removal. previous cultures showed E. Coli + pseudomonas --> was sent home on Cipro BID x 10 additional days/ completed course. tolerating low fiber diet at time of discharge will require abd. surgery to treat fistula and abscess Will require colonoscopy 6-8 weeks following acute incident of diverticulitis. will remove drain in AM. #HTN- Losartan-HCTZ resume #Hypothyroidism- Levothyroxine Admission and Anticipated Discharge Date Admission Date: September 06, 2025 Subjective 1 yo female reports no new symptoms. Patient is asking to have the drain removed. Physical Exam Constitutional: WD/WN, vitals as above Eyes: PERRL, conjunctivae normal, anicteric sclerae ENMT: external ear and nose normal, oropharynx normal Neck: trachea midline, no thyromegaly Respiratory: normal respiratory effort, lungs clear to auscultation Cardiovascular: RRR, no murmur, no edema Gastrointestinal (Abdomen): Inspection/Auscultation: + abdominal surgical drain present Percussion/Palpation: + abdomen tender (b/l lower quadrants) and abdomen soft; abdomen not rigid Skin: no rashes, warm and dry Neurologic: PERRL, EOMI, accommodation nl, no face palsy, no dysarthria Psychiatric: A+Ox3, euthymic affect Results & Data Results & Data Vital Signs (Past 12 Hours) Vital Signs Temp Pulse Resp BP Pulse Ox O2 Del Method 09/07/25 14:53 36.9 C 62 18 101/65 95 Room Air PG Care Time/CCT Total # of Minutes Spent Total Time Spent with Patient: Total time spent is greater than 50% in coordination of care (as documented) at patient's floor/unit and/or counseling patient: Coding Level of Care Code 69263 SUB INP/OBS CARE 3/50MIN Diagnoses Diverticulitis of intestine with abscess K57.20 Diverticulitis bleeding: unspecified bleeding status Diverticulitis site: large intestine (1) Diverticulitis of intestine with abscess Diverticulitis bleeding: unspecified bleeding status Diverticulitis site: large intestine Qualified Code(s): K57.20 - Diverticulitis of large intestine with perforation and abscess without bleeding
[2025-09-08 07:41] LABS: Hematocrit (blood only) 34.1 % (37.0-47.0); Hemoglobin 11.3 g/dl (12.0-16.0); Mean Corpuscular Hemoglobin 28.5 pg (25.0-34.0); Mean Corpuscular Volume 85.9 fL (80.0-100.0); Platelet Count 267 K/uL (130-400); RDW Standard Deviation 45.5 fL (36.4-46.3); Red Blood Count 3.97 M/uL (4.20-5.40); White Blood Count 6.66 K/ul (4.8-10.8)
[2025-09-08 08:02] LABS: Anion Gap 5.0 (3-11); Blood Urea Nitrogen 8.0 mg/dl (6-23); Calcium 8.5 mg/dl (8.6-10.3); Carbon Dioxide 26.0 mmol/L (21-32); Chloride 110.0 mmol/L (98-107); Creatinine Clr Calc Pharmacy 73.2 ml/min; Glucose 92.0 mg/dl (70-99(Fasting)); Potassium 4.2 mmol/L (3.5-5.1); Sodium 141.0 mmol/L (136-145)
--- NOTE | 2025-09-08 15:16 | Surgery Progress Note ---
<Statement entered by Srini Castro MD - 09/08/25 22:54> I independently saw the patient, and I agree w the assessment and plan of care. Date of Service September 08, 2025 Assessment & Plan (1) Diverticulitis of intestine with abscess: Plan Continue on full liquids for now, will plan on making her NPO after midnight on this coming 09/10/2025 with plans to proceed to the OR on 09/11/2025 for sigmoid resection and possible ostomy creation. Will give a bowel prep on Thursday with erythromycin and flagyl as well as miralax and dulcolax. Also, will remove the IR drain today and this may be exacerbating her pain. Otherwise continue antibiotics and current pain medications. Admission and Anticipated Discharge Date Admission Date: September 06, 2025 Subjective Patient states that she feels better, but does continue to have pain in the LLQ, worse with movement, better at rest, well tolerated with current pain medication plan. Patient states that she believes that the drain is the cause of her abdominal pain. Patient has been tolerating a full liquid diet without any nausea or vomiting, passing flatus and did mention she had a loose BM. Physical Exam Physical Exam: Gen: Awake and alert, resting comfortably in bed in NAD CV: RRR PULM: non-labored breathing Abd: Abd soft, non-distended, mild tenderness to palpation to the LLQ. IR drain in place with scant serosanguineous drainage ext: no edema to bilateral lower ext, SCDs in place, non-tender, feet warm and well perfused Results & Data Vital Signs (Past 12 Hours) Vital Signs Temp Pulse Resp BP Pulse Ox O2 Del Method 09/08/25 08:47 36.9 C 60 18 138/87 98 Room Air Results BMP Results: Sodium 141 mmol/L (136-145) 09/08/25 Potassium 4.2 mmol/L (3.5-5.1) 09/08/25 Chloride 110 mmol/L (98-107) H 09/08/25 Carbon Dioxide 26 mmol/L (21-32) 09/08/25 Anion Gap 5 (3-11) 09/08/25 BUN 8 mg/dl (6-23) 09/08/25 Creatinine 0.89 mg/dl (0.6-1.2) 09/08/25 Glucose 92 mg/dl (70-99(Fasting)) 09/08/25 Results CBC w Diff Results: RBC 3.97 M/uL (4.20-5.40) L 09/08/25 WBC 6.66 K/ul (4.8-10.8) 09/08/25 Hgb 11.3 g/dl (12.0-16.0) L 09/08/25 Hct 34.1 % (37.0-47.0) L 09/08/25 MCV 85.9 fL (80.0-100.0) 09/08/25 MCH 28.5 pg (25.0-34.0) 09/08/25 MCHC 33.1 g/dL (32.0-36.0) 09/08/25 RDW Standard Deviation 45.5 fL (36.4-46.3) 09/08/25 RDW Coefficient of Variation 14.6 % (11.5-14.5) H 09/08/25 Plt Count 267 K/uL (130-400) 09/08/25 MPV 9.7 fL (9.4-12.4) 09/08/25 Neutrophils (%) (Auto) 74.4 % 09/06/25 Lymphocytes (%) (Auto) 16.4 % 09/06/25 Monocytes # (Auto) 0.73 K/uL (0.11-0.59) H 09/06/25 Eosinophils # (Auto) 0.28 K/uL (0.00-0.50) 09/06/25 Immature Granulocyte % (Auto) 0.3 % 09/06/25 Neutrophils # (Auto) 8.79 K/uL (1.40-6.50) H 09/06/25 Lymphocytes # (Auto) 1.94 K/uL (1.20-3.40) 09/06/25 Monocytes # (Auto) 0.73 K/uL (0.11-0.59) H 09/06/25 Eosinophils # (Auto) 0.28 K/uL (0.00-0.50) 09/06/25 Basophils # (Auto) 0.04 K/uL (0.00-0.20) 09/06/25 Immature Granulocyte # (Auto) 0.03 K/uL (0.01-0.20) 5 PG Care Time/CCT Total # of Minutes Spent Total Time Spent with Patient: Total time spent is greater than 50% in coordination of care (as documented) at patient's floor/unit and/or counseling patient: Coding Level of Care Code 35623 SUB INP/OBS CARE Diagnoses Diverticulitis of intestine with abscess K57.20 Diverticulitis bleeding: unspecified bleeding status Diverticulitis site: large intestine (1) Diverticulitis of intestine with abscess Diverticulitis bleeding: unspecified bleeding status Diverticulitis site: large intestine Qualified Code(s): K57.20 - Diverticulitis of large intestine with perforation and abscess without bleeding
--- NOTE | 2025-09-08 23:33 | Hospitalist Progress Note ---
Date of Service September 08, 2025 Assessment & Plan (1) Diverticulitis of intestine with abscess: Plan #Diverticulitis with abscess / with possible Colovesicular fistula Will admit to medicine. appreciate surgery input: plan for surgery on 09/11 Removed IR drain on 09/08 tolerating low fiber diet at time of discharge will require abd. surgery to treat fistula and abscess Will require colonoscopy 6-8 weeks following acute incident of diverticulitis. WBC downtrending. Responding to antibiotics. #HTN- Losartan-HCTZ on hold #Hypothyroidism- Levothyroxine Admission and Anticipated Discharge Date Admission Date: September 06, 2025 Subjective 59 yo female reports no new symptoms. Patient reports her pain feels much better after the drain was removed. Physical Exam Constitutional: WD/WN, vitals as above Eyes: PERRL, conjunctivae normal, anicteric sclerae ENMT: external ear and nose normal, oropharynx normal Neck: trachea midline, no thyromegaly Respiratory: normal respiratory effort, lungs clear to auscultation Cardiovascular: RRR, no murmur, no edema Gastrointestinal (Abdomen): Inspection/Auscultation: + abdominal surgical drain present Percussion/Palpation: + abdomen tender (b/l lower quadrants) and abdomen soft; abdomen not rigid Skin: no rashes, warm and dry Neurologic: PERRL, EOMI, accommodation nl, no face palsy, no dysarthria Psychiatric: A+Ox3, euthymic affect Results & Data Results & Data Vital Signs (Past 12 Hours) Vital Signs Temp Pulse BP Pulse Ox O2 Del Method 09/08/25 15:53 37.0 C 60 145/87 H 97 Room Air PG Care Time/CCT Total # of Minutes Spent Total Time Spent with Patient: Total time spent is greater than 50% in coordination of care (as documented) at patient's floor/unit and/or counseling patient: Coding Level of Care Code 89046 SUB INP/OBS CARE 350MIN Diagnoses Diverticulitis of intestine with abscess K57.20 Diverticulitis bleeding: unspecified bleeding status Diverticulitis site: large intestine (1) Diverticulitis of intestine with abscess Diverticulitis bleeding: unspecified bleeding status Diverticulitis site: large intestine Qualified Code(s): K57.20 - Diverticulitis of large intestine with perforation and abscess without bleeding
[2025-09-09] MEDS: ADVANCED PROBIOTIC 625 MG CAPSULE PO SCH (07:08)
--- NOTE | 2025-09-09 10:31 | Surgery Progress Note ---
Date of Service September 09, 2025 Assessment & Plan (1) Diverticulitis of intestine with abscess: Plan: con't diet NPO tomorrow night to OR on Thursday Admission and Anticipated Discharge Date Admission Date: September 06, 2025 Subjective feels better moving bowels, liquid Review of Systems Constitutional: no fever and no chills Respiratory: no dyspnea Cardiovascular: no chest pain Gastrointestinal: + abdominal pain and + diarrhea/loose st ools; no nausea and no vomiting Neurologic: no localized weakness Psychiatric: no behavioral changes Physical Exam Constitutional: WD/WN, vitals as above Respiratory: normal respiratory effort Cardiovascular: Rate/Rhythm: regular rate and regular rhythm Gastrointestinal (Abdomen): Inspection/Auscultation: abdomen normal to inspection and normal bowel sounds; abdomen not distended Percussion/Palpation: + abdomen tender and abdomen soft; no guarding and abdomen not rigid Musculoskeletal: Head/Neck/Chest: normocephalic and head atraumatic Results & Data Vital Signs (Past 12 Hours) Vital Signs Temp Pulse Resp BP Pulse Ox O2 Del Method 09/09/25 07:42 36.8 C 62 16 152/83 H 98 Room Air 09/09/25 00:09 36.8 C 75 20 144/76 H 99 Room Air (1) Diverticulitis of intestine with abscess Diverticulitis bleeding: unspecified bleeding status Diverticulitis site: large intestine Qualified Code(s): K57.20 - Diverticulitis of large intestine with perforation and abscess without bleeding
[2025-09-09] MEDS: LOSARTAN POTASSIUM 50 MG TAB PO SCH (16:12)
--- NOTE | 2025-09-10 00:15 | Hospitalist Progress Note ---
Date of Service September 09, 2025 Assessment & Plan (1) Diverticulitis of intestine with abscess: Plan #Diverticulitis with abscess / with possible Colovesicular fistula admitted to medicine. appreciate surgery input: plan for surgery on 09/11 will be NPO after midnight on 09/11 will require abd. surgery to treat fistula and abscess Will require colonoscopy 6-8 weeks following acute incident of diverticulitis. WBC downtrending. Responding to antibiotics. Patient with diarrhea, now on probotics. #HTN- Losartan-HCTZ on hold #Hypothyroidism- Levothyroxine Admission and Anticipated Discharge Date Admission Date: September 06, 2025 Subjective Patient reports feeling well. Her pain is better controlled. Physical Exam Constitutional: WD/WN, vitals as above Eyes: PERRL, conjunctivae normal, anicteric sclerae ENMT: external ear and nose normal, oropharynx normal Neck: trachea midline, no thyromegaly Respiratory: normal respiratory effort, lungs clear to auscultation Cardiovascular: RRR, no murmur, no edema Gastrointestinal (Abdomen): Percussion/Palpation: + abdomen tender (b/l lower quadrants) and abdomen soft; abdomen not rigid Skin: no rashes, warm and dry Neurologic: PERRL, EOMI, accommodation nl, no face palsy, no dysarthria Psychiatric: A+Ox3, euthymic affect Results & Data Results & Data Vital Signs (Past 12 Hours) Vital Signs Temp Pulse Resp BP Pulse Ox O2 Del Method 09/09/25 22:22 36.8 C 68 18 158/77 H 99 Room Air 09/09/25 15:33 36.9 C 65 16 152/84 H 98 Room Air PG Care Time/CCT Total # of Minutes Spent Total Time Spent with Patient: Total time spent is greater than 50% in coordination of care (as documented) at patient's floor/unit and/or counseling patient: Coding Level of Care Code 56277 SUB INP/OBS CARE 350MIN Diagnoses Diverticulitis of intestine with abscess K57.20 Diverticulitis bleeding: unspecified bleeding status Diverticulitis site: large intestine (1) Diverticulitis of intestine with abscess Diverticulitis bleeding: unspecified bleeding status Diverticulitis site: large intestine Qualified Code(s): K57.20 - Diverticulitis of large intestine with perforation and abscess without bleeding
--- NOTE | 2025-09-10 09:14 | Surgery Progress Note ---
Date of Service September 10, 2025 Assessment & Plan (1) Diverticulitis of intestine with abscess: Plan: for ex lap in AM prep today NPO p MN Admission and Anticipated Discharge Date Admission Date: September 06, 2025 Subjective feels poorly with headache minimal abdominal discomfort for exploration in AM Review of Systems Constitutional: no fever and no chills Headache Respiratory: no dyspnea Cardiovascular: no chest pain Gastrointestinal: no abdominal pain, no nausea and no vomiting Neurologic: no localized weakness Psychiatric: no behavioral changes Physical Exam Constitutional: WD/WN, vitals as above Eyes: no scleral abnormality Respiratory: normal respiratory effort, lungs clear to auscultation Cardiovascular: RRR, no murmur, no edema Gastrointestinal (Abdomen): Inspection/Auscultation: abdomen normal to inspection and normal bowel sounds; abdomen not distended Percussion/Palpation: abdomen soft; abdomen nontender Musculoskeletal: Head/Neck/Chest: normocephalic and head atraumatic Results & Data Vital Signs (Past 12 Hours) Vital Signs Temp Pulse Resp BP Pulse Ox O2 Del Method 09/10/25 07:04 36.7 C 62 16 155/91 H 99 Room Air 09/09/25 22:22 36.8 C 68 18 158/77 H 99 Room Air (1) Diverticulitis of intestine with abscess Diverticulitis bleeding: unspecified bleeding status Diverticulitis site: large intestine Qualified Code(s): K57.20 - Diverticulitis of large intestine with perforation and abscess without bleeding
[2025-09-10] MEDS: ACETAMINOPHEN 325 MG TAB PO PRN (11:05)
--- NOTE | 2025-09-10 14:30 | Hospitalist Progress Note ---
Date of Service September 10, 2025 Assessment & Plan (1) Diverticulitis of intestine with abscess: Plan #Diverticulitis with abscess / with possible Colovesicular fistula Colovesical fistula, not a postprocedural complications of GI system admitted to medicine. appreciate surgery input: plan for surgery on 09/11 will be NPO after midnight on 09/11 will require abd. surgery to treat fistula and abscess Will require colonoscopy 6-8 weeks following acute incident of diverticulitis. WBC downtrending. Responding to antibiotics. Patient with diarrhea, now on probotics. added PPI and lorazepam #HTN- Losartan-HCTZ on hold, on losartan #Hypothyroidism- Levothyroxine Admission and Anticipated Discharge Date Admission Date: September 06, 2025 Subjective Patient appears more nervous this morning. Patientnis worried about her surgery tomorrow. She has been reading Dr. Brown and thinks this may be cancer. Physical Exam Constitutional: WD/WN, vitals as above Eyes: PERRL, conjunctivae normal, anicteric sclerae ENMT: external ear and nose normal, oropharynx normal Neck: trachea midline, no thyromegaly Respiratory: normal respiratory effort, lungs clear to auscultation Cardiovascular: RRR, no murmur, no edema Gastrointestinal (Abdomen): Percussion/Palpation: + abdomen tender (b/l lower quadrants) and abdomen soft; abdomen not rigid Skin: no rashes, warm and dry Neurologic: PERRL, EOMI, accommodation nl, no face palsy, no dysarthria Psychiatric: A+Ox3, euthymic affect Results & Data Results & Data Vital Signs (Past 12 Hours) Vital Signs Temp Pulse Resp BP Pulse Ox O2 Del Method 09/10/25 07:04 36.7 C 62 16 155/91 H 99 Room Air PG Care Time/CCT Total # of Minutes Spent Total Time Spent with Patient: Total time spent is greater than 50% in coordination of care (as documented) at patient's floor/unit and/or counseling patient: Coding Level of Care Code 81571 SUB INP/OBS CARE 3/50MIN Diagnoses Diverticulitis of intestine with abscess K57.20 Diverticulitis bleeding: unspecified bleeding status Diverticulitis site: large intestine (1) Diverticulitis of intestine with abscess Diverticulitis bleeding: unspecified bleeding status Diverticulitis site: large intestine Qualified Code(s): K57.20 - Diverticulitis of large intestine with perforation and abscess without bleeding
[2025-09-10] MEDS: NEOMYCIN SULFATE 500 MG TAB PO ONE ×3 (14:52→23:02)
[2025-09-10] MEDS: metroNIDAZOLE 500 MG TAB PO ONE ×3 (14:53→23:01)
[2025-09-10] MEDS ORDERED: ERYTHROMYCIN ETHYLSUCC SUSP 200 MG/5 ML 100 ML BTL PO ONE ×3 (15:00→22:00)
[2025-09-10] MEDS: LORazepam 0.5 MG TAB PO STA (15:11)
[2025-09-10] MEDS: POLYETHYLENE (MIRALAX) 17 GM PACK PO ONE (17:07)
[2025-09-10] MEDS: LORazepam 1 MG TAB PO STA (19:46)
[2025-09-11 06:21] LABS: Hematocrit (blood only) 39.5 % (37.0-47.0); Hemoglobin 13.0 g/dl (12.0-16.0); Mean Corpuscular Hemoglobin 28.3 pg (25.0-34.0); Mean Corpuscular Volume 85.9 fL (80.0-100.0); Platelet Count 314 K/uL (130-400); RDW Standard Deviation 45.0 fL (36.4-46.3); Red Blood Count 4.60 M/uL (4.20-5.40); White Blood Count 8.58 K/ul (4.8-10.8)
[2025-09-11 06:37] LABS: Anion Gap 8.0 (3-11); Blood Urea Nitrogen 6.0 mg/dl (6-23); Calcium 9.7 mg/dl (8.6-10.3); Carbon Dioxide 25.0 mmol/L (21-32); Chloride 106.0 mmol/L (98-107); Creatinine Clr Calc Pharmacy 68.6 ml/min; Glucose 82.0 mg/dl (70-99(Fasting)); Potassium 4.2 mmol/L (3.5-5.1); Sodium 139.0 mmol/L (136-145)
[2025-09-11] MEDS: LORazepam Inj 0.5 MG in SYRINGE 0.25 ML IV ONE (10:47)
[2025-09-11] MEDS: NALOXEGOL OXALATE 25 MG TAB PO SCH (10:47)
--- NOTE | 2025-09-11 10:57 | Anesthesiology Consultation ---
Date of Service September 11, 2025 Assessment & Plan Chart Review Chart Review: Acceptable Risk for Surgery and Patient NOT seen in Pre Admission Testing Consults Requested none History Surgery Operation Date: 09/11/25 12:30 Proposed Procedures p Laparoscopic Sigmoidectomy, Possible Open, Possible Colostomy - Srini Castro MD s Bilateral Ureteral Stent Insertions - Spencer Pascual MD Height/Weight Height: 5 ft 8 in Weight: 78.8 kg Allergies Allergy/AdvReac Type Severity Reaction Status Date / Time aluminum hydroxide Allergy Severe hives and Verified 08/23/25 07:59 [From Maalox Maximum swelling Strength] atropine [From ] Allergy Severe hives and Verified 08/23/25 07:59 swelling hyoscyamine [From ] Allergy Severe hives and Verified 08/23/25 07:59 swelling lidocaine Allergy Severe hives and Verified 08/23/25 07:59 swelling magnesium hydroxide Allergy Severe hives and Verified 08/23/25 07:59 [From Maalox Maximum swelling Strength] phenobarbital [From ] Allergy Severe hives and Verified 08/23/25 07:59 swelling scopolamine [From ] Allergy Severe hives and Verified 08/23/25 07:59 swelling simethicone Allergy Severe hives and Verified 08/23/25 07:59 [From Maalox Maximum swelling Strength] hydroxyzine Allergy Intermediate hives Verified 08/22/25 21:26 ketorolac Allergy Intermediate HIVES Verified 08/22/25 21:26 metoclopramide Allergy Intermediate hives Verified 08/22/25 21:26 Medications Home Medications Medication Instructions Recorded Confirmed Last Taken levothyroxine 25 mcg tablet 25 mcg PO DAILY 07/30/20 09/06/25 08/22/25 ibuprofen 200 mg tablet 800 mg PO Q8 PRN Pain 02/21/23 09/06/25 Unknown losartan 50 mg-hydrochlorothiazide 1 tab PO DAILY 02/21/23 09/06/25 08/22/25 12.5 mg tablet ondansetron 4 mg disintegrating 4 mg PO Q6H PRN nausea and 08/26/25 09/06/25 Unknown tablet vomiting #30 tabs tramadol 50 mg tablet 50 mg PO Q6H PRN pain #7 tabs 08/26/25 09/06/25 Unknown omeprazole 20 mg capsule,delayed 20 mg PO DAILY 09/06/25 09/06/25 Unknown release Active Medications Generic Name Dose Route Start Last Admin Trade Name Freq PRN Reason Stop Dose Admin Acetaminophen 650 mg 09/10/25 10:53 09/10/25 11:05 Acetaminophen 325 Mg Tab PO 10/10/25 10:52 650 mg Q4H PRN Administration Pain Hydromorphone HCl 0.5 mg 09/06/25 19:18 09/10/25 07:09 Hydromorphone Inj 0.5 Mg/0.5 Ml Syr IV 09/20/25 19:17 0.5 mg Q6H PRN Administration Pain Piperacillin Sod/Tazobactam Sod 4.5 gm in 100 mls @ 25 mls/hr 09/06/25 23:30 09/11/25 07:45 Zosyn IV 09/16/25 23:29 25 mls/hr Q8H MORALES Administration Protocol Lactobacillus Acidophilus 1,250 mg 09/09/25 09:00 09/11/25 07:52 Advanced Probiotic 625 Mg Capsule PO 10/09/25 08:59 1,250 mg DAILY MORALES Administration Levothyroxine Sodium 25 mcg 09/07/25 06:30 09/11/25 06:15 Levothyroxine Sodium 25 Mcg Tablet PO 10/07/25 06:29 25 mcg DAILYBB MORALES Administration Losartan Potassium 50 mg 09/09/25 16:00 09/11/25 07:53 Losartan Potassium 50 Mg Tab PO 10/09/25 15:59 50 mg QAM MORALES Administration Naloxegol 25 mg 09/11/25 09:00 09/11/25 10:47 Naloxegol Oxalate 25 Mg Tab PO 10/11/25 08:59 25 mg DAILY MORALES Administration Social History Smoking Status: Never smoker Do You Dip or Chew Tobacco: No Hx Alcohol Use: No Hx Substance Use: No substance use type: does not use Physical Exam Vital Signs Last Vital Signs Temp 36.8 C 09/11/25 07:54 Pulse 80 09/11/25 07:54 Resp 14 09/11/25 07:54 BP 156/81 H 09/11/25 07:54 Pulse Ox 97 09/11/25 07:54 O2 Del Method Room Air 09/11/25 07:54 Testing Laboratory Results 09/11/25 05:57 09/11/25 05:57 PT 10.3 Seconds (9.0-12.0) 09/06/25 14:55 INR 1.0 (0.9-1.1) 09/06/25 14:55 APTT 27 Seconds (21-31) 09/06/25 14:55 Urine Color Yellow 09/07/25 Unknown Urine Appearance Clear (Clear) 09/07/25 Unknown Urine pH 6.5 (4.5-7.5) 09/07/25 Unknown Ur Specific [place] > 1.045 (1.000-1.030) H 09/07/25 Unknown Urine Protein Trace (Negative) H 09/07/25 Unknown Urine Glucose (UA) Negative (Negative) 09/07/25 Unknown Urine Ketones Negative (Negative) 09/07/25 Unknown Urine Nitrite Negative (Negative) 09/07/25 Unknown Ur Leukocyte Esterase Negative (Negative) 09/07/25 Unknown Urine WBC (Auto) 0-5 /hpf (0-5) 09/07/25 Unknown Urine RBC (Auto) 3-5 /hpf (0-2) H 09/07/25 Unknown U Hyaline Cast (Auto) 3-5 /lpf (0-2) H 09/07/25 Unknown U Epithel Cells (Auto) 0-2 /hpf (0-2) 09/07/25 Unknown Urine Bacteria (Auto) None Seen (None Seen) 09/07/25 Unknown Blood Type O Positive 09/11/25 05:57 Antibody Screen NEGATIVE 09/11/25 05:57
[2025-09-11] MEDS: LACTATED RINGER'S 1,000 ML IV SCH (11:39)
[2025-09-11] MEDS ORDERED: ONDANSETRON INJ 2 MG/ML 2 ML VIAL IV PRN (12:01)
[2025-09-11] MEDS ORDERED: ROCURONIUM BROMIDE 10 MG/ML 5 ML VIAL IV ONE ×2 (12:08→14:03)
[2025-09-11] MEDS ORDERED: PROPOFOL IV EMULSION 10 MG/ML 20 ML VIAL IV ONE (12:08)
[2025-09-11] MEDS ORDERED: ONDANSETRON INJ 2 MG/ML 2 ML VIAL ONE (12:08)
[2025-09-11] MEDS ORDERED: DEXAMETHASONE SOD INJ 4 MG/ML VIAL ONE (12:08)
[2025-09-11] MEDS ORDERED: MIDAZOLAM HCL 1 MG/ML 2ML VIAL ONE (12:08)
--- NOTE | 2025-09-11 12:08 | History & Physical Bridge Note ---
Date of Service September 11, 2025 History & Physical Bridge Note I have examined the patient, reviewed the History & Physical and in the interval since the performance of the History & Physical I have noted the following changes of clinical significance: no changes noted
[2025-09-11] MEDS ORDERED: LIDOCAINE 2% 2 ML VIAL/AMP(20MG/ML) INFIL ONE (12:12)
--- NOTE | 2025-09-11 13:17 | Operative Report ---
PG Post Operative Report Pre & Post Diagnosis Intestinal abscess with colovesical fistula Operation Date: 09/11/25 12:30 <No data on this case meets the specified criteria> Intestinal abscess with colovesical fistula I identified the patient and participated in the time-out.: Yes Procedure Cystoscopy with bilateral localizing stents Operation Date: 09/11/25 12:30 <No data on this case meets the specified criteria> Surgeon Spencer Pascual MD Shipyard Helper None Estimated Blood Loss 0 Findings See Below No obvious fistula on cystoscopy. Stents in appropriate position. Specimens None Drains Bilateral localizing stents and 16fr may with 10cc in balloon Anesthesia Type General Complications none Indications 59 yo F with intestinal abscess and colovesical fistula who is going to the OR with colorectal for surgery and they requested bilateral localizing stents Description of Procedure After informed consent was obtained, the patient was transported to the operative suite. General anesthesia was induced. They were placed in dorsal lithotomy position and prepped and draped in sterile fashion. They received preoperative []. An appropriate surgical timeout was performed. Rigid scope was inserted per urethra in the bladder. I turned my attention to the left ureteral orifice and advanced a 5 [place]er open-ended catheter up into the kidney until the 20 cm marina. I then turned my attention the right ureteral orifice and advanced a separate 5 [place]er open-ended catheter to the 20 cm marina. Scope was removed over the stents. These were hooked up to the adapter to go into the May catheter. A 16 [place]er May catheter was inserted with return of urine and balloon was inflated with 10 cc of sterile water. Stents were then tied to the tube of the catheter using a silk suture. Catheter was hooked up to a May bag. This concluded the end of the urologic portion. All counts correct at the end of the case. I was present scrubbed and actively participated for the entirety of the procedure. I then turned the surgery over to colorectal surgery. I attest to the content of the Intraoperative Record and any orders documented therein. Any exceptions are noted below.
[2025-09-11] MEDS ORDERED: ePHEDrine sulfate 50 MG/5 ML SYR ONE (13:28)
[2025-09-11] MEDS ORDERED: KETAMINE HCL 10MG/ML SYR ONE (13:49)
[2025-09-11] MEDS: BUPIVACAINE 0.5 % 5 MG/1 ML MPF 30ML VIAL ONE (15:32)
[2025-09-11] MEDS: BUPIVACAINE LIPOSOME 1.3% 133 MG/10 ML VIAL ONE ×2 (15:32)
[2025-09-11] MEDS ORDERED: SUGAMMADEX SODIUM 200 MG/2 ML VIAL IV ONE (15:34)
--- NOTE | 2025-09-11 16:06 | Operative Report ---
PG Post Operative Report Pre & Post Diagnosis Operation Date: 09/11/25 12:30 Pre-Op Diagnosis: Diverticulitis of intestine with abscess Post-Op Diagnosis: Diverticulitis of intestine with abscess I identified the patient and participated in the time-out.: Yes Procedure Operation Date: 09/11/25 12:30 Actual Procedures p Laparoscopic Sigmoidectomy with Anastomosis(Not Applicable) laparoscopic mobilization [place] [id number], [id number] s Bilateral Ureteral Stent Insertions(Not Applicable) - Spencer Pascual MD Surgeon Srini Castro MD Bridge Instructor None Estimated Blood Loss 50 Findings See Below Specimens sigmoid colon Drains 19 uzbek angus drain in pelvis Anesthesia Type General Complications none none Indications This is a 59-year-old female with a history of complicated sigmoid colon diverticulitis with abscess formation and colovesical fistula. She recently underwent IR drainage placement and was doing well but return to the emergency room with worsening abdominal pain and imaging shows worsening colovesical fistula from abscess cavity to bladder. Patient was admitted and started on IV antibiotics and now presents for laparoscopic sigmoidectomy with primary anastomosis, possible open surgery, possible ostomy. She also was consented for cystoscopy and bilateral ureteral catheters. This was to be performed by urology. Risks of procedure were discussed with the patient and they include bleeding, infection, injury to surrounding structures, need for further procedures, anastomotic leak, wound issues to include wound dehiscence, infection, and hernia and ostomy issues as well as cardiopulmonary issues. Alternatives include no surgery, which the patient declines. Patient wishes to proceed with surgery. All questions were answered. Description of Procedure Informed consent was verified and site of surgery was verified and the patient was brought back to the operating room. General anesthesia was administered. She was in the lithotomy position. Her abdomen and pelvis were prepped and draped in usual sterile fashion. Urology had come in first and perform cystoscopy and placed bilateral ureteral catheters as well as Ramon. A surgical timeout was performed and there were no issues. Next, a left upper quadrant incision was made and a Veress needle was inserted and the abdomen was insufflated to about 15 mmHg. Next, a 30 degree laparoscope was inserted with a 5 mm trocar under direct vision using the Optiview technique and the abdomen was inspected. There was no evidence of any injuries to any structures from entry into the abdominal cavity. 2 additional 5 mm ports were placed under direct vision, 1 was in the right upper quadrant and 1 was in the right lower quadrant. The abdomen was inspected. There were adhesions of omentum to the anterior midline. These were taken down gently. Next, the colon was inspected. The left colon was seen as well as the sigmoid colon and at the level of the sigmoid colon there was dense inflammation. The left colon was mobilized along the white line of Toldt was mobilized just proximal to the splenic flexure. Care was taken to avoid injury to any structures. Next, a HandPort was used to assist in the dissection of the sigmoid colon by placing a lower midline incision and dissecting this area laparoscopically as well as using the HandPort laparoscopically. The sigmoid colon was gently from the abscess cavity. There was a small amount of pus that was suctioned. There did appear to be an area on the peritoneum overlying bladder that looked irritated and inflamed but there was no full-thickness defect to close. Next after sufficient mobilization of the sigmoid colon, lines of transection were identified at the level of the sigmoid colon and window was created in the mesentery and the colon was transected using the contour stapling device. The mesentery was then divided using the LigaSure device. A high ligation of the mesentery was not performed given that this was not performed for malignancy. Next, the rectum was identified by the splaying of the tinea coli in the sacral premonitory and a window was created in the mesentery at this level and the contour stapling device was used to transect the bowel at this level as well. Next, the specimen was removed off the field and the left colon was further mobilized and EEA sizers were brought up under direct vision laparoscopically to the level of the staple line. The proximal colon was seen to easily reach the staple line without any tension and appeared to be well-perfused. Next, 29 EEA anvil was secured at the end of the proximal colon after opening the staple line and using the pursestring device to create a pursestring suture around the anvil. After securing this, the 29 EEA stapler was brought out to the level of the staple line and deployed anterior to the staple line and the anastomosis was created by bringing the proximal and distal ends together. Next, care was taken to ensure that there is no twisting of the bowel and that there is no tension on the bowel. Next, the anastomosis was created by firing the stapler. The stapler was then removed and the anastomotic donuts were inspected. They were intact and were robust. Next, a leak test was performed by placing saline in the abdomen and insufflating air via the rigid proctoscope past the anastomosis after placing the anastomosis on tension. There was no bubbling, indicating no evidence of a leak. Next, via the right lower quadrant port, a 19 Slovenian Angus drain was placed in the pelvis and secured. Next, the fascia of the HandPort was closed with 0 looped PDS and the skin of this was closed using enrique after first injecting Exparel into the wounds. Sterile dressing was applied and the bilateral ureteral catheters were removed at the end of the case. They were intact. The Ramon was left in place. The patient was weaned off anesthesia and transferred to recovery in stable condition. She tolerated the procedure well. I attest to the content of the Intraoperative Record and any orders documented therein. Any exceptions are noted below.
--- NOTE | 2025-09-11 17:03 | Anesthesiology Progress Note ---
Date of Service September 11, 2025 Anesthesia Post Procedure Vital Signs Vital Signs: Temp Pulse Pulse Resp BP Pulse Ox O2 Del Method 09/11/25 16:45 36.4 C L 65 16 122/65 100 Nasal Cannula 09/11/25 16:35 65 18 128/65 99 Nasal Cannula 09/11/25 16:25 62 20 110/61 95 Room Air 09/11/25 16:15 66 22 111/52 L 94 Room Air 09/11/25 16:05 68 22 114/62 97 Oxymask 09/11/25 15:56 36.3 C L 83 16 113/64 96 Oxymask 09/11/25 11:31 36.9 C 77 16 159/94 H 98 Room Air 09/11/25 07:54 36.8 C 80 14 156/81 H 97 Room Air 09/10/25 23:41 36.6 C 62 18 124/81 97 Room Air 09/10/25 19:30 Room Air O2 Flow Rate 09/11/25 16:45 2 09/11/25 16:35 2 09/11/25 16:25 09/11/25 16:15 09/11/25 16:05 3 09/11/25 15:56 6 09/11/25 11:31 09/11/25 07:54 09/10/25 23:41 09/10/25 19:30 Pain Intensity Head: Pain Intensity: 3 Abdomen: Pain Intensity: 5 Transfer of Care Handoff Completed per policy Notes Mental Status: alert / awake / arousable and participated in evaluation Patient Amnestic to Procedure: Yes Nausea / Vomiting: adequately controlled Pain: adequately controlled Airway Patency, RR, SpO2: stable & adequate BP & HR: stable & adequate Hydration State: stable & adequate Anesthetic Complications: no major complications apparent and Pt Satisfied with anesthetic care
[2025-09-11] MEDS ORDERED: HYDROmorphone INJ 0.5 MG/0.5 ML SYR IV PRN (17:27)
[2025-09-11] MEDS: ACETAMINOPHEN 1,000 MG/100 ML VIAL IV SCH (17:35)
[2025-09-11] MEDS ORDERED: Nursing to Pharmacy Communication SCH (17:45)
[2025-09-11] MEDS: ONDANSETRON INJ 2 MG/ML 2 ML VIAL IV PRN (17:49)
[2025-09-11] MEDS: HYDROmorphone INJ 0.5 MG/0.5 ML SYR IV PRN (18:43)
[2025-09-11] MEDS: HYDROmorphone INJ 0.5 MG/0.5 ML SYR IV STA (21:12)
--- NOTE | 2025-09-11 23:47 | Hospitalist Progress Note ---
Date of Service September 11, 2025 Assessment & Plan (1) Diverticulitis of intestine with abscess: Plan #Diverticulitis with abscess / with possible Colovesicular fistula Colovesical fistula, not a postprocedural complications of GI system admitted to medicine. appreciate surgery input: s/p Laparoscopic Sigmoidectomy with Anastomosis Will require colonoscopy 6-8 weeks following acute incident of diverticulitis. WBC downtrending. Responding to antibiotics. Patient with diarrhea, now on probotics. added PPI and lorazepam #HTN- Losartan-HCTZ on hold, on losartan #Hypothyroidism- Levothyroxine Admission and Anticipated Discharge Date Admission Date: September 06, 2025 Subjective Patient resting after surgery. Reports no significant pain at this time. Physical Exam Constitutional: WD/WN, vitals as above Eyes: PERRL, conjunctivae normal, anicteric sclerae ENMT: external ear and nose normal, oropharynx normal Neck: trachea midline, no thyromegaly Respiratory: normal respiratory effort, lungs clear to auscultation Cardiovascular: RRR, no murmur, no edema Gastrointestinal (Abdomen): Percussion/Palpation: abdomen soft; abdomen not rigid Skin: no rashes, warm and dry Neurologic: PERRL, EOMI, accommodation nl, no face palsy, no dysarthria Psychiatric: A+Ox3, euthymic affect Results & Data Results & Data Vital Signs (Past 12 Hours) Vital Signs Temp Pulse Pulse Resp BP BP Pulse Ox 09/11/25 20:25 36.8 C 72 18 135/76 95 09/11/25 19:33 36.7 C 70 16 126/74 95 09/11/25 19:00 36.3 C L 65 16 117/72 96 09/11/25 18:23 36.5 C 72 16 121/70 96 09/11/25 17:55 36.9 C 68 14 123/74 95 09/11/25 17:30 36.7 C 66 16 114/73 97 09/11/25 17:15 78 17 138/68 99 09/11/25 17:00 70 21 127/68 98 09/11/25 16:45 36.4 C L 65 16 122/65 100 09/11/25 16:35 65 18 128/65 99 09/11/25 16:25 62 20 110/61 95 09/11/25 16:15 66 22 111/52 L 94 09/11/25 16:05 68 22 114/62 97 09/11/25 15:56 36.3 C L 83 16 113/64 96 O2 Del Method O2 Flow Rate 09/11/25 20:25 Room Air 09/11/25 19:33 Room Air 09/11/25 19:00 Room Air 09/11/25 18:23 Room Air 09/11/25 17:55 Room Air 09/11/25 17:30 Room Air 09/11/25 17:15 Nasal Cannula 2 09/11/25 17:00 Nasal Cannula 2 09/11/25 16:45 Nasal Cannula 2 09/11/25 16:35 Nasal Cannula 2 09/11/25 16:25 Room Air 09/11/25 16:15 Room Air 09/11/25 16:05 Oxymask 3 09/11/25 15:56 Oxymask 6 PG Care Time/CCT Total # of Minutes Spent Total Time Spent with Patient: Total time spent is greater than 50% in coordination of care (as documented) at patient's floor/unit and/or counseling patient: Coding Level of Care Code 97108 SUB INP/OBS CARE MIN Diagnoses Diverticulitis of intestine with abscess K57.20 Diverticulitis bleeding: unspecified bleeding status Diverticulitis site: large intestine (1) Diverticulitis of intestine with abscess Diverticulitis bleeding: unspecified bleeding status Diverticulitis site: large intestine Qualified Code(s): K57.20 - Diverticulitis of large intestine with perforation and abscess without bleeding
[2025-09-12] MEDS: HYDROmorphone INJ 0.5 MG/0.5 ML SYR IV PRN ×2 (01:37→04:34)
[2025-09-12 06:36] LABS: Hematocrit (blood only) 36.8 % (37.0-47.0); Hemoglobin 12.9 g/dl (12.0-16.0); Mean Corpuscular Hemoglobin 29.8 pg (25.0-34.0); Mean Corpuscular Volume 85.0 fL (80.0-100.0); Platelet Count 329 K/uL (130-400); RDW Standard Deviation 45.0 fL (36.4-46.3); Red Blood Count 4.33 M/uL (4.20-5.40); White Blood Count 14.90 K/ul (4.8-10.8)
[2025-09-12 07:08] LABS: Anion Gap 10.0 (3-11); Blood Urea Nitrogen 9.0 mg/dl (6-23); Calcium 9.1 mg/dl (8.6-10.3); Carbon Dioxide 22.0 mmol/L (21-32); Chloride 104.0 mmol/L (98-107); Creatinine Clr Calc Pharmacy 72.4 ml/min; Glucose 110.0 mg/dl (70-99(Fasting)); Potassium 3.9 mmol/L (3.5-5.1); Sodium 136.0 mmol/L (136-145)
[2025-09-12 08:02] LABS: Magnesium 1.9 mg/dl (1.7-2.4)
[2025-09-12] MEDS: SODIUM CHLORIDE 0.9% 500 ML IV SCH (08:05)
[2025-09-12] MEDS: GABAPENTIN 300 MG CAP PO SCH (08:16)
--- NOTE | 2025-09-12 10:00 | Surgery Progress Note ---
<Statement entered by Srini Castro MD - 09/12/25 13:14> I independently saw the patient and agree with the assessment and plan of care. Date of Service September 12, 2025 Assessment & Plan (1) Diverticulitis of intestine with abscess: Plan: POD#1 Laparoscopic Sigmoidectomy with Anastomosis WBC 14.9, Hbg 12.9, Cr 0.9. Vitals stable Tolerating clears, but not appetizing to her. will trial fulls and see how she fairs Added in gabapentin to her pain regimen ALY drain serosang, abdominal binder and surgical dressings in place Keep may catheter in place for now likely next 1-2 days Encourage OOB/ambulation/pulmonary toilet. will order lovenox for dvt ppx Admission and Anticipated Discharge Date Admission Date: September 06, 2025 Subjective Patient is has some pain, but tolerable with pain meds. On clears but not very appetizing to her. Denies n/v. Wants more to try to eat. No gas/bm yet. Worried about what her pathology will reveal. Physical Exam Physical Exam: awake/alert, somewhat tearful when asking if pathology has returned Respiratory: normal respiratory effort Gastrointestinal (Abdomen): wearing abdominal binder, surgical dressings intact. ALY drain serosang. tender magdiel incisionally Results & Data Vital Signs (Past 12 Hours) Vital Signs Temp Pulse Resp BP Pulse Ox O2 Del Method 09/12/25 07:29 98.2 F 73 14 138/78 96 Room Air 09/12/25 04:00 98.2 F 73 18 119/74 95 Room Air 09/11/25 23:00 98.4 F 76 18 120/73 96 Room Air PG Care Time/CCT Total # of Minutes Spent Total Time Spent with Patient: Total time spent is greater than 50% in coordination of care (as documented) at patient's floor/unit and/or counseling patient: Coding Level of Care Code 53877 Post Operative Follow-Up Diagnoses Diverticulitis of intestine with abscess K57.20 Diverticulitis bleeding: unspecified bleeding status Diverticulitis site: large intestine (1) Diverticulitis of intestine with abscess Diverticulitis bleeding: unspecified bleeding status Diverticulitis site: large intestine Qualified Code(s): K57.20 - Diverticulitis of large intestine with perforation and abscess without bleeding
[2025-09-12] MEDS: ENOXAPARIN INJ 40 MG/0.4 ML SYR SQ SCH (12:19)
--- NOTE | 2025-09-12 21:52 | Hospitalist Progress Note ---
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 appreciate surgery input: s/p Laparoscopic Sigmoidectomy with Anastomosis. WBC downtrending. Responding to antibiotics. Patient with diarrhea, now on probiotics. Continue on PPI. Patient likely will remain in house at minimal for 2 more days #HTN- Losartan-HCTZ on hold, on losartan #Hypothyroidism- Levothyroxine Admission and Anticipated Discharge Date Admission Date: September 06, 2025 Subjective Pstient reports she still has some abdominal pain from surgery but it is no longer as severe as it was when she came in. Physical Exam Constitutional: WD/WN, vitals as above Eyes: PERRL, conjunctivae normal, anicteric sclerae ENMT: external ear and nose normal, oropharynx normal Neck: trachea midline, no thyromegaly Respiratory: normal respiratory effort, lungs clear to auscultation Cardiovascular: RRR, no murmur, no edema Gastrointestinal (Abdomen): Percussion/Palpation: + abdomen tender (b/l lower quadrant/ abdominal binder placed) and abdomen soft; abdomen not rigid Skin: no rashes, warm and dry Neurologic: PERRL, EOMI, accommodation nl, no face palsy, no dysarthria Psychiatric: A+Ox3, euthymic affect Results & Data Results & Data Vital Signs (Past 12 Hours) Vital Signs Temp Pulse Resp BP BP Pulse Ox O2 Del Method 09/12/25 14:46 36.7 C 78 16 94/59 L 99/63 L 95 Room Air 09/12/25 11:18 36.9 C 65 16 122/74 96 Room Air PG Care Time/CCT Total # of Minutes Spent Total Time Spent with Patient: Total time spent is greater than 50% in coordination of care (as documented) at patient's floor/unit and/or counseling patient: Coding Level of Care Code 35015 SUB INP/OBS CARE 3/50MIN Diagnoses Diverticulitis of intestine with abscess K57.20 Diverticulitis bleeding: unspecified bleeding status Diverticulitis site: large intestine (1) Diverticulitis of intestine with abscess Diverticulitis bleeding: unspecified bleeding status Diverticulitis site: large intestine Qualified Code(s): K57.20 - Diverticulitis of large intestine with perforation and abscess without bleeding
[2025-09-13 06:50] LABS: Hematocrit (blood only) 34.5 % (37.0-47.0); Hemoglobin 11.8 g/dl (12.0-16.0); Mean Corpuscular Hemoglobin 29.9 pg (25.0-34.0); Mean Corpuscular Volume 87.6 fL (80.0-100.0); Platelet Count 254 K/uL (130-400); RDW Standard Deviation 48.7 fL (36.4-46.3); Red Blood Count 3.94 M/uL (4.20-5.40); White Blood Count 9.21 K/ul (4.8-10.8)
[2025-09-13 07:20] LABS: Anion Gap 6.0 (3-11); Blood Urea Nitrogen 6.0 mg/dl (6-23); Calcium 9.2 mg/dl (8.6-10.3); Carbon Dioxide 27.0 mmol/L (21-32); Chloride 105.0 mmol/L (98-107); Creatinine Clr Calc Pharmacy 70.8 ml/min; Glucose 91.0 mg/dl (70-99(Fasting)); Magnesium 1.9 mg/dl (1.7-2.4); Potassium 3.5 mmol/L (3.5-5.1); Sodium 138.0 mmol/L (136-145)
[2025-09-13] MEDS ORDERED: POTASSIUM PHOS 3 MMOL/1 ML INFUSION IV STA (07:38)
--- NOTE | 2025-09-13 07:43 | Hospitalist Progress Note ---
Date of Service September 13, 2025 Assessment & Plan (1) Diverticulitis of intestine with abscess: (2) Hypophosphatemia: Plan In summary this is a 59-year-old female admitted for sigmoid diverticulitis with abscess formation, failed conservative therapy, underwent laparoscopic sigmoide ctomy with reanastomosis on 09/11 without intraoperative complication #Sigmoid diverticulitis with abscess Postoperative care guided by general surgery recommendations; patient remains with Ramon catheter which they anticipate void trial on 09/14; advancing the patient's diet as they tolerate ALY drain remains Ramon catheter remains Encourage regular ambulation to facilitate bowel activity Continue Zosyn; would anticipate a total 10-day antibiotic course given the patient's severity of symptoms and presentation General Surgery consulted #Hypophosphatemia Hypophosphatemic on 09/13; replacement was ordered by general surgery with potassium phosphate; during infusion the patient had a episode of sustained tachycardia that was likely initially triggered by the discomfort from the infusion and sustained by their degree of anxiety; they were transferred to a med/tele floor for continuous cardiac monitoring and continued observation Continue to follow daily electrolytes #Essential Hypertension // Hypothyroidism // GERD Chronic conditions; continue current management with home regimen Admission and Anticipated Discharge Date Admission Date: September 06, 2025 Subjective Ms. Puckett is a 59-year-old female whose active medical conditions include hypothyroidism, gastroesophageal reflux disease, with recent hospitalization at the [facility] [address] in mid August 2025 with acute diverticulitis complicated by an abscess which was drained by interventional radiology who again presented to the same hospital on 09/06 due to progressive abdominal pain. The patient underwent laparoscopic sigmoidectomy with anastomosis with the assistance of urology via cystoscopy with bilateral ureteral stent localization. The surgery was performed without significant complication. There were no acute overnight events on 09/12; upon initial evaluation on 09/13 the patient was noted to be tachycardic and significantly anxious and tearful as documented in the separate communication report. Upon reevaluation the patient has much improved, with no new complaints or concerns at this time. She notes some "grumblings" in the abdomen without significant discomfort; she denies passing flatus or stool at this time. She has a reduced appetite but is able to tolerate oral intake at this time. Review of Systems Review of Systems: Review of constitutional, cardiovascular, pulmonary, gastrointestinal, genitourinary systems was unremarkable except for pertinent positive and negative findings discussed above Physical Exam Physical Exam: General: Adult female in no acute distress Vital Signs: Reviewed HEENT: Moist mucous membranes Neck: [] Pulmonary: Symmetric chest wall excursion without restriction; clear to auscultation bilaterally Cardiovascular: Regular rate and rhythm without murmurs, rubs, or gallops; S1 and S2 normal; right radial pulse 2+; no notable lower extremity edema Gastrointestinal: Surgical site is dressed at this time, dressings were not removed during my physical exam; there is a delineated outline of the previous days drainage which has not extended past the borders that were drawn; the patient is nontender with percussion; mild tenderness along the abdominal incision during abdominal palpation; there are low-frequency normal pitch bowel sounds throughout the abdomen; ALY drain with too little fluid accumulation to measure Genitourinary: Ramon catheter in place with approximately 75 mL of pale yellow urine without sediment Neurologic: CN II-XII grossly intact; no discernible focal weakness nor paresthesias Results & Data Results & Data Vital Signs (Past 12 Hours) Vital Signs Temp Pulse Resp BP Pulse Ox O2 Del Method 09/13/25 02:00 Room Air 09/12/25 22:12 37.4 C 70 18 123/74 93 Room Air Laboratory Results Downtrending leukocytosis 9.21 from 14.9 Hemoglobin Rafael 0.8 from 12.9 Phosphorus 2.2 from 3.4 CRP increased from 5.30-12.44 PG Care Time/CCT Total # of Minutes Spent Total Time Spent with Patient: Total time spent is greater than 50% in coordination of care (as documented) at patient's floor/unit and/or counseling patient: Coding Level of Care Code 10790 SUB INP/OBS CARE MIN Diagnoses Diverticulitis of intestine with abscess K57.20 Diverticulitis bleeding: unspecified bleeding status Diverticulitis site: large intestine Hypophosphatemia E83.39 (1) Diverticulitis of intestine with abscess Diverticulitis bleeding: unspecified bleeding status Diverticulitis site: large intestine Qualified Code(s): K57.20 - Diverticulitis of large intestine with perforation and abscess without bleeding
[2025-09-13] MEDS: ACETAMINOPHEN 500 MG TAB PO SCH (08:08)
[2025-09-13] MEDS: POTASSIUM PHOSPHATE 15 MMOL in SODIUM CHLORIDE 0.9% 250 ML IV ONE (08:08)
[2025-09-13 08:13] LABS: Albumin Level 3.4 gm/dl (3.4-5.0)
--- NOTE | 2025-09-13 09:14 | Communication Note ---
Date of Service: September 13, 2025 Contacted by nursing staff for sustained tachycardia that was asymptomatic; upon arrival the patient was tearful, denying any symptoms of chest pain, shortness of breath, palpitations, lightheadedness; on exam the patient is tachycardic with a regular rhythm without murmurs, rubs, or gallops; brisk capillary refill in the upper extremities; her abdomen is nonacute; twelve-lead EKG was obtained prior to my arrival and based on my interpretation reveals sinus tachycardia with ST depressions in V3 and V4 A/P: Asymptomatic sinus tachycardia; suspect this is consequential of discomfort with ordered potassium phosphate infusion; the patient's laboratory assessment on the morning of 09/13 is remarkable for hemoglobin measure of 11.8 which is not significantly changed from the previous days measures, renal function panel was remarkable for phosphorus of 2.2 decreased from 3.4, suspect this might be a lab error given the degree of change from the previous day. Her CRP is elevated from 5.30-12.44 without an associated persistent leukocytosis, likely reactive from her recent surgery with continued progressive rise. Given her hemodynamic stability, no medical interventions were made during this time and the patient was reassured that this is likely consequential of their recent major surgery, reduced oral intake, slight electrolyte abnormalities, and discomfort with their infusion. We will transfer them to a [facility] floor with telemetry for 24 hours minimum to continue monitoring this rhythm. Given the absence of angina or anginal equivalents, there is no indication for troponin evaluation at this time, given the absence of a diagnosis of ACS.
--- NOTE | 2025-09-13 12:21 | Surgery Progress Note ---
Date of Service September 13, 2025 Assessment & Plan (1) Diverticulitis of intestine with abscess: (2) S/P laparoscopic-assisted sigmoidectomy: (3) S/P ureteral stent placement: Plan Patient is postop day 2 from laparoscopic low anterior resection with anastomosis for perforated diverticulitis with possible fistula from bladder to abscess but area of concern and bladder was not very irritated, appeared to be mostly peritoneal irritation. She did have an episode of tachycardia that appears to be resolved, unclear etiology. She has not passed flatus but does feel hungry for solids and feels rumbling. Plan will be to advance diet as tolerated, out of bed and ambulate, keep Ramon in for today, consider voiding trial tomorrow if does well and consider removing ALY drain tomorrow if begins to pass gas. Admission and Anticipated Discharge Date Admission Date: September 06, 2025 Subjective Patient had an episode of tachycardia of unclear etiology earlier this morning that resolved. Her phosphorus was low, is being replaced. She was placed in a monitored setting, heart rate is in 60s to 70s, regular. She reports she has not ambulated since surgery, she did get out of bed to chair yesterday. She is tolerating full liquids and feels rumbling but has not passed flatus yet but is interested in starting solid foods. Review of Systems Review of Systems: All systems reviewed & are unremarkable except as noted in HPI & below Physical Exam Constitutional: WD/WN, vitals as above Respiratory: Normal effort Cardiovascular: Rate/Rhythm: regular rate Gastrointestinal (Abdomen): Soft, nondistended, nontender, ALY drain with minimal serosanguineous fluid, Ramon catheter with yellow urine Results & Data Vital Signs (Past 12 Hours) Vital Signs Temp Pulse Pulse Pulse Resp BP Pulse Ox 09/13/25 12:07 84 09/13/25 11:34 37.0 C 78 18 138/82 94 09/13/25 10:32 37 C 85 16 153/89 H 95 09/13/25 09:28 100 H 09/13/25 08:31 109 H 09/13/25 08:30 36.8 C 144 H 18 122/78 96 09/13/25 02:00 O2 Del Method 09/13/25 12:07 09/13/25 11:34 Room Air 09/13/25 10:32 Room Air 09/13/25 09:28 09/13/25 08:31 09/13/25 08:30 Room Air 09/13/25 02:00 Room Air PG Care Time/CCT Total # of Minutes Spent Total Time Spent with Patient: Total time spent is greater than 50% in coordination of care (as documented) at patient's floor/unit and/or counseling patient: Coding Level of Care Code 58343 Post Operative Follow-Up Diagnoses Diverticulitis of intestine with abscess K57.20 Diverticulitis bleeding: unspecified bleeding status Diverticulitis site: large intestine S/P laparoscopic-assisted sigmoidectomy Z90.49 S/P ureteral stent placement Z96.0 (1) Diverticulitis of intestine with abscess Diverticulitis bleeding: unspecified bleeding status Diverticulitis site: large intestine Qualified Code(s): K57.20 - Diverticulitis of large intestine with perforation and abscess without bleeding
[2025-09-13] MEDS: DOCUSATE SODIUM 100 MG CAP PO SCH (12:37)
[2025-09-14 00:22] VITALS: TEMP 98.2
--- NOTE | 2025-09-14 06:55 | Hospitalist Progress Note ---
Date of Service September 14, 2025 Assessment & Plan (1) Diverticulitis of intestine with abscess: (2) Hypophosphatemia: (3) Hypokalemia: Plan In summary this is a 59-year-old female admitted for sigmoid diverticulitis with abscess formation, failed conservative therapy, underwent laparoscopic sigmoidectomy with reanastomosis on 09/11 without intraoperative complication #Sigmoid diverticulitis with abscess Postoperative care guided by general surgery recommendations; patient remains with Ramon catheter which they anticipate void trial on 09/14; advancing the patient's diet as they tolerate ALY drain remains Ramon catheter remains Encourage regular ambulation to facilitate bowel activity Continue Zosyn; would anticipate a total 10-day antibiotic course given the patient's severity of symptoms and presentation General Surgery consulted #Hypophosphatemia // Hypokalemia Remains diminished; additional replacement ordered 09/14; goal K of 4.0, Phos of 3.0, and Mg of 2 Continue to follow daily electrolytes #Essential Hypertension // Hypothyroidism // GERD Chronic conditions; continue current management with home regimen Admission and Anticipated Discharge Date Admission Date: September 06, 2025 Subjective Ms. Puckett is a 59-year-old female whose active medical conditions include hypothyroidism, gastroesophageal reflux disease, with recent hospitalization at the [facility] in mid August 2025 with acute diverticulitis complicated by an abscess which was drained by interventional radiology who again presented to the same hospital on 09/06 due to progressive abdominal pain. The patient underwent laparoscopic sigmoidectomy with anastomosis with the assistance of urology via cystoscopy with bilateral ureteral stent localization. The surgery was performed without significant complication. Overnight the patient did pass gas with a small amount of stool and clots; no other overnight events Results & Data Results & Data Vital Signs (Past 12 Hours) Vital Signs Temp Pulse Pulse Resp BP Pulse Ox O2 Del Method 09/14/25 03:44 36.8 C 69 18 111/64 98 Room Air 09/14/25 00:20 36.8 C 75 18 112/66 98 Room Air 09/13/25 21:45 69 09/13/25 19:42 37.1 C 76 20 107/69 96 Room Air Laboratory Results Diminished potassium of 3.2 and phosphorus of 2.4 Downtrending CRP of 8.29 PG Care Time/CCT Total # of Minutes Spent Total Time Spent with Patient: Total time spent is greater than 50% in coordination of care (as documented) at patient's floor/unit and/or counseling patient: Coding Diagnoses Diverticulitis of intestine with abscess K57.20 Diverticulitis bleeding: unspecified bleeding status Diverticulitis site: large intestine Hypophosphatemia E83.39 Hypokalemia E87.6 (1) Diverticulitis of intestine with abscess Diverticulitis bleeding: unspecified bleeding status Diverticulitis site: large intestine Qualified Code(s): K57.20 - Diverticulitis of large intestine w ith perforation and abscess without bleeding
[2025-09-14 07:17] LABS: Albumin Level 3.2 gm/dl (3.4-5.0); Anion Gap 6.0 (3-11); Blood Urea Nitrogen 6.0 mg/dl (6-23); Calcium 8.8 mg/dl (8.6-10.3); Carbon Dioxide 29.0 mmol/L (21-32); Chloride 106.0 mmol/L (98-107); Creatinine Clr Calc Pharmacy 86.9 ml/min; Glucose 89.0 mg/dl (70-99(Fasting)); Potassium 3.2 mmol/L (3.5-5.1); Sodium 141.0 mmol/L (136-145)
[2025-09-14] MEDS ORDERED: POTASSIUM PHOS 3 MMOL/1 ML INFUSION IV STA (07:19)
[2025-09-14 07:57] VITALS: RESP 16
[2025-09-14] MEDS: LOSARTAN/HCTZ 50/12.5MG TAB PO SCH (08:16)
[2025-09-14] MEDS: POTASSIUM PHOSPHATE 21 MMOL in SODIUM CHLORIDE 0.9% 500 ML IV ONE (08:19)
[2025-09-14 12:05] VITALS: BP 130/78; O2SAT 96
--- NOTE | 2025-09-14 12:35 | Surgery Progress Note ---
<Statement entered by Srini Castro MD - 09/14/25 14:59> I independently saw the patient and I agree with the assessment and plan of care Date of Service September 14, 2025 Assessment & Plan (1) Diverticulitis of intestine with abscess: Plan Patient is postop day 3 from laparoscopic low anterior resection with anastomosis for perforated diverticulitis with possible fistula from bladder to abscess but area of concern and bladder was not very irritated, appeared to be mostly peritoneal irritation, recovering well. Tolerating regular diet without any nausea or vomiting, passing flatus and having normal bowel movements. We will plan to remove the Ramon today and try a voiding trial, also will remove the ALY drain. If the patient is able to void and continues to feel well with abdominal pain controlled on p.o. pain medications, we feel that she would be stable for discharge home today. Would recommend transtition to oral augmentin at the time of discharge for an additional 5 days, and will plan to see her in our clinic in 2 weeks for a post-op check Admission and Anticipated Discharge Date Admission Date: September 06, 2025 Subjective Patient currently states that she feels well, denies abdominal pain. She has been tolerating a low fiber diet without any nausea or vomiting, passing flatus and has had formed bowel movements. Patient states that she did pass a large blood clot, but it was explained that this can be typical after a bowel resection with anastomosis. H&H has been stable with no evidence of overt bleeding. Discussed pathology results which showed evidence of diverticulitis with perforation and abscess formation, no evidence of neoplasm. Physical Exam Physical Exam: Gen: Awake and alert, resting comfortably in bed in NAD CV: RRR PULM: non-labored breathing Abd: Abd soft, non-tender, non-distended, midline incision and laparoscopic incisions well-approximated with enrique in place, no surrounding erythema, warmth, swelling, or increased tenderness to palpation. ALY drain to right lower quadrant with serosanguineous drainage noted. ext: no edema to bilateral lower ext, SCDs in place, non-tender, feet warm and well perfusted Results & Data Vital Signs (Past 12 Hours) Vital Signs Temp Pulse Pulse Pulse Resp BP BP 09/14/25 12:03 36.8 C 74 16 130/78 09/14/25 07:56 36.8 C 68 16 122/83 09/14/25 05:20 65 09/14/25 03:44 36.8 C 69 18 111/64 Pulse Ox O2 Del Method 09/14/25 12:03 96 Room Air 09/14/25 07:56 98 Room Air 09/14/25 05:20 09/14/25 03:44 98 Room Air PG Care Time/CCT Total # of Minutes Spent Total Time Spent with Patient: Total time spent is greater than 50% in coordination of care (as documented) at patient's floor/unit and/or counseling patient: Coding Level of Care Code 79460 Post Operative Follow-Up Diagnoses Diverticulitis of intestine with abscess K57.20 Diverticulitis bleeding: unspecified bleeding status Diverticulitis site: large intestine (1) Diverticulitis of intestine with abscess Diverticulitis bleeding: unspecified bleeding status Diverticulitis site: large intestine Qualified Code(s): K57.20 - Diverticulitis of large intestine with perforation and abscess without bleeding
[2025-09-14 14:25] VITALS: PULSE 76
--- NOTE | 2025-09-14 17:03 | Discharge Summary ---
Discharge Summary Date of Service September 14, 2025 Principal Dx & Hospital Course #1 = Principal Diagnosis (1) Diverticulitis of intestine with abscess: (2) Hypophosphatemia: (3) Hypokalemia: Plan In summary this is a 59-year-old female admitted for sigmoid diverticulitis with abscess formation, failed conservative therapy, underwent laparoscopic sigmoidectomy with reanastomosis on 09/11 without intraoperative complication #Sigmoid diverticulitis with abscess Postoperative care guided by general surgery recommendations; Successful void trial after Ramon catheter removal on 09/14; ALY drain removed by general surgery on the same day of discharge ALY drain remains Ramon catheter remains Encourage regular ambulation to facilitate bowel activity Treated with ZosynFor 6 days; per general surgery request, patient will be discharged on amoxicillin clavulanic acid 875/125 mg p.o. twice daily for an additional 5 days for total 11-day antibiotic course To follow with general surgery in the outpatient setting Admission HPI Per Admitting Provider 59-year-old female PMHx hypothyroidism, HTN, and GERD presenting for worsening abdominal pain.Patient was recently discharged from this hospital on 08/26 for diverticulitis and an abscess. There was concern for a colovesical fistula on imaging. Patient had interven tional radiology place a drain to treat the abscess. Patient reports that her husbands helps flush the drain but today there did not feel any pain which is typical but a fullness, this was then followed by drainage. Patient then noticed her abdominal pain getting worse. Pain is dull anterior and in both lower quadrants. Discharge Exam General: Adult female in no acute distress Vital Signs: Reviewed HEENT: Moist mucous membranes Pulmonary: Symmetric chest wall excursion without restriction; clear to auscultation bilaterally Cardiovascular: Regular rate and rhythm without murmurs, rubs, or gallops; S1 and S2 normal; right radial pulse 2+; no notable lower extremity edema Gastrointestinal: surgical sites appear well approximated with enrique intact; the patient is nontender with percussion; mild tenderness along the abdominal incision with palpation; there are normal-frequency and normal pitch bowel sounds throughout the abdomen Neurologic: CN II-XII grossly intact; no discernible focal weakness nor paresthesias Discharge Plan Discharge Items Patient Disposition: Home - Self-Care Reason For Visit: ABSCESS ABDOMINAL Discharge Diagnosis: Severe sigmoid diverticulitis with abscess requiring laparoscopic sigmoidectomy Condition on Discharge: Fair Activity: Per Instructions section Non-emergency contact: Primary Care Provider and Surgeon Call non-emergency contact if: your pain is not controlled, your temperature is above 101.5, your wound has increased redness and your wound has increased drainage Follow-up/Referrals: Shi Velasquez MD [Primary Care Provider] - (Please call your primary care provider to schedule a hospital follow-up appointment within 7-10 days) Srini Castro MD [Surgeon] - (follow up with Dr. Castro in 2 weeks for your post- op check up ) Diet: Low Fiber Dominik Attending Provider Instructions: You were admitted to [facility] for severe sigmoid diverticulitis with an abscess requiring laparoscopic sigmoidectomy with reanastomosis. With regard to your primary presentation, your postoperative course was uncomplicated. A Ramon catheter was discontinued on 09/14 and did not require replacement due to a successful void trial. General surgery also had recommended initiation of antibiotics with Zosyn, which will be continued with a similar drug, Augmentin, for total 10-day antibiotic course. He will follow-up with general surgery in the outpatient setting as they have scheduled and have additional recommendations detailed below. During your hospital stay you had some mild electrolyte abnormalities including your phosphorus and potassium measures; these were replaced adequately; there is no need for further evaluation in the outpatient setting, this should resolve with resuming a regular diet. Thank you for choosing [facility] as your healthcare provider. 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 You may shower with these in place. They will be removed at your follow up appointment. * You may shower on 09/12/2025 . NO soaking in bath tubs, hot tubs, or pools for 2 weeks * No lifting greater than 10lbs. No exercise until cleared by surgeon. Light walking is accepted. * No driving while taking narcotic pain medication * No drinking alcohol while taking narcotic pain medication * May use Ibuprofen/Tylenol over the counter for pain as tolerated. Do not exceed 3grams of Tylenol per 24 hours * Expect some swelling and bruising. * Diet - low fiber diet CALL YOUR DOCTOR IF: * Temperature above 101 degrees, nausea/vomiting, fever/chills * Pain not relieved by pain medicine ordered * There is increased drainage or redness from any incision * You have any unanswered questions or concerns [phone]. FOLLOW UP VISIT: If not already scheduled, please call the office for a follow-up visit. Office Pending Studies at Discharge: Yes Studies:: surgical pathology Stand-Alone Forms: My [facility], Work/School Release Medications and DC Order Prescriptions: New acetaminophen [Tylenol Extra Strength] 500 mg Tablet 1,000 mg PO Q8H 14 Days Qty: 84 0RF amoxicillin-pot clavulanate 875-125 mg tablet 1 tab PO Q12H 5 Days Qty: 10 0RF Continued levothyroxine 25 mcg Tablet 25 mcg PO DAILY ibuprofen 200 mg Tablet 800 mg PO Q8 PRN (Reason: Pain) losartan-hydrochlorothiazide 50-12.5 mg tablet 1 tab PO DAILY omeprazole 20 mg Capsule,Delayed Release(Dr/Ec) 20 mg PO DAILY ondansetron 4 mg tablet,disintegrating 4 mg PO Q6H PRN (Reason: nausea and vomiting) Qty: 30 0RF tramadol 50 mg tablet 50 mg PO Q6H PRN (Reason: pain) Qty: 7 0RF Discharge Orders: Discharge Order (Routine); Ordered 09/14/25 Ordered By: Glibert Almeida/Other Patient Handouts: How the Colon Works, ED Post Op Wound Check, General Admission Data Admit Date/Time: 09/06/25 18:46 Attending Provider: Gilbert Najera Admit Provider: Keith Alfred Primary Care Provider: Shi Velasquez Other Providers: Keith Alfred; Srini Castro Other Interventions: Discharge Summary Assessment (RN) Last Done: 09/14/25 13:07 Hospital Stay Data Consultations 09/06/25 18:19 ED Decision to Admit Stat 09/06/25 18:49 Consult General Surgery Routine Procedures Performed Operation Date: 09/11/25 12:30 Actual Procedures p Laparoscopic Sigmoidectomy with Anastomosis(Not Applicable) - Srini Castro MD s Bilateral Ureteral Stent Insertions(Not Applicable) - Spencer Pascual MD Diagnostic Imagining Performed 09/06/25 16:33 CT Abd and Pelvis [CT abd pelvis IV con only] Stat Pending Results Patient Have Any Pending Studies at Discharge: Yes Discharge Instructions Given to Patient (Per Discharging Provider) You were admitted to [facility] for severe sigmoid diverticulitis with an abscess requiring laparoscopic sigmoidectomy with reanastomosis. With regard to your primary presentation, your postoperative course was uncomplicated. A Ramon catheter was discontinued on 09/14 and did not require replacement due to a successful void trial. General surgery also had recommended initiation of antibiotics with Zosyn, which will be continued with a similar drug, Augmentin, for total 10-day antibiotic course. He will follow-up with general surgery in the outpatient setting as they have scheduled and have additional recommendations detailed below. During your hospital stay you had some mild electrolyte abnormalities including your phosphorus and potassium measures; these were replaced adequately; there is no need for further evaluation in the outpatient setting, this should resolve with resuming a regular diet. Thank you for choosing [facility] as your healthcare provider. Total Time Total Time Spent Total Time Spent (In Minutes): I personally spent 50 minutes in the coordination of today's discharge including bedside counseling, physical exam, coordination of care with general surgery, medication reconciliation Coding Level of Care Code 71128 INP/OBS DISCH >30 MIN Diagnoses Diverticulitis of intestine with abscess K57.20 Diverticulitis bleeding: unspecified bleeding status Diverticulitis site: large intestine Hypophosphatemia E83.39 Hypokalemia E87.6
--- NOTE | 2025-09-15 12:25 | Electrocardiogram Report ---
Test Reason : Blood Pressure : */* mmHG Vent. Rate : 133 BPM Atrial Rate : 266 BPM P-R Int : * ms QRS Dur : 98 ms QT Int : 316 ms P-R-T Axes : * -31 -36 degrees QTcB Int : 470 ms Atrial flutter with 2:1 A-V conduction Left axis deviation ST depression, consider subendocardial injury Abnormal ECG When compared with ECG of 22-Aug-2025 18:55, Atrial flutter has replaced Sinus rhythm Vent. rate has increased by [address] now depressed in Anterolateral leads Nonspecific T wave abnormality no longer evident in Anterior leads Confirmed by Marcos Gillette ([id number]) on 09/15/2025 12:24:40 PM Referred By: REFERRED SELF Confirmed By: Marcos Gillette
== END 2025-09-14 15:04 | disposition home or self-care (01) | DRG 330 ==
LOC: ED 14:32 → 3W 18:46 → SUATTDRO 18:46 → 3W 21:05 → 2N 09-13 10:58

== ENCOUNTER 2025-10-08 05:43 | Inpatient (IN) ==
[2025-10-08 06:28] LABS: Hematocrit (blood only) 37.0 % (37.0-47.0); Hemoglobin 12.7 g/dL (12.0-16.0); Immature Granulocytes # (auto) 0.02 K/uL (0.01-0.20); Immature Granulocytes % (auto) 0.2 %; Mean Corpuscular Hemoglobin 29.5 pg (25.0-34.0); Mean Corpuscular Volume 85.8 fL (80.0-100.0); Platelet Count 262 K/uL (130-400); RDW Standard Deviation 45.9 fL (36.4-46.3); Red Blood Count 4.31 M/uL (4.20-5.40); White Blood Count 8.12 K/ul (4.8-10.8)
[2025-10-08 06:44] LABS: Alanine Aminotransferase 13.0 U/L (7-52); Albumin Globulin Ratio 1.4 (0.9-2); Albumin Level 4.1 gm/dl (3.4-5.0); Alkaline Phosphatase 62.0 U/L (34-104); Anion Gap 9.0 (3-11); Bilirubin,Total 0.5 mg/dl (0.2-1.0); Blood Urea Nitrogen 9.0 mg/dl (6-23); Calcium 9.7 mg/dl (8.6-10.3); Carbon Dioxide 26.0 mmol/L (21-32); Chloride 103.0 mmol/L (98-107); Creatinine Clr Calc Pharmacy 77.9 ml/min; Globulin 2.9 gm/dl (2.5-4.0); Glucose 100.0 mg/dl (70-99(Fasting)); Lipase 51.0 U/L (11-82); Potassium 3.1 mmol/L (3.5-5.1); Sodium 138.0 mmol/L (136-145); Total Protein 7.0 gm/dl (6.0-8.3)
--- NOTE | 2025-10-08 06:58 | Emergency Department Note ---
Impression & Plan Enteritis, SBO (small bowel obstruction) ED Provider Note NAME: KIMANI LEON AGE: 60 SEX: F : 1965 ARRIVES VIA: Walk-In INFORMANT: Patient, ED PROVIDER(S): Mariel Yousif MD CHIEF COMPLAINT: Abdominal pain HPI: This is a 60-year-old female presenting for abdominal pain. Patient has a history of colon resection after a sigmoid diverticulitis abscess. This happened 1 month ago. Patient notes that she began having bladder spasm symptoms on Thursday. This has worsened despite being on ciprofloxacin by her physician. She notes worsening pain in the right lower quadrant and bladder. She reports no fevers, chills. She reports slight nausea. ROS: See above HPI for pertinent positives & negatives. A total of 10 systems reviewed and were otherwise negative. PAST MEDICAL HISTORY: See Below PAST SURGICAL HISTORY: See Below FAMILY HISTORY: See Below SOCIAL HISTORY: See Below HOME MEDICATIONS: See Below ALLERGIES: See Below VITALS: See Below PHYSICAL EXAMINATION: General: resting comfortably in no acute distress Head: Normocephalic and atraumatic Eyes: Normal inspection, extraocular muscles intact Ear, nose, throat: Normal external exam Neck: Normal range of motion Respiratory: lungs clear to auscultation bilaterally Cardiovascular: Regular rate/rhythm, no murmur GI: Right lower quadrant abdominal tenderness Extremities: nontender, moves all extremities Neuro: The patient awake and alert, appropriately conversive, no focal deficits, symmetric faces Skin: Warm, dry, and intact MEDICAL DECISION MAKING: This is a 60-year-old female presented for abdominal pain. Patient's pain is mostly right lower quadrant. She has appears to be in moderate distress due to pain. Will give hydromorphone for pain control. - Urinalysis unrevealing of UTI - Blood work shows some slight hypokalemia otherwise no significant normalities - CT imaging reveals moderate to severe distal enteritis with probable developing obstruction. Otherwise no significant drainable organized collection - Patient still associating pain. Due to developing obstruction, will go to the hospital for further pain control and obstruction management. - Care discussed with [facility] hospitalist service for admission Differential diagnosis: Abscess, diverticulitis, colitis, enteritis, cholecystitis, appendicitis, volvulus, ovarian torsion Independent History obtained from: Diagnostics interpreted by me: ECG: None Cardiac Monitoring: An order was placed for continuous cardiac monitoring. The monitor shows a rate of 78 with sinus rhythm. Past Med/Surg History Problem List (Updated 10/08/25 @ 14:22 by Mariel Yousif MD) SBO (small bowel obstruction) (Acute) Enteritis (Acute) Urinary tract infection Bladder spasms Encounter for surgical aftercare following surgery of digestive system Hypokalemia Hypophosphatemia (Acute) Essential hypertension Hypothyroidism (acquired) Diverticulitis of intestine with abscess (Acute) Gastroesophageal reflux disease (Chronic) Surgical History (Updated 09/26/25 @ 00:08 by Nicole Jefferson) History of hysterectomy History of appendectomy History of cholecystectomy S/P ureteral stent placement (09/11/25) Bilateral Ureteral Stent Insertions - Spencer Pascual MD S/P laparoscopic-assisted sigmoidectomy (09/11/25) Laparoscopic Sigmoidectomy with Anastomosis, laparoscopic mobilization of splenic flexure- Srini Castro MD Social History Smoking Status: Never smoker Second Hand Exposure: No; Do You Dip or Chew Tobacco: No; Hx Alcohol Use: No Hx Substance Use: No Preferred Language: Serbian Communication Ability: Effective Visual Impairment: No Limitations 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 Required: No Beliefs That Will Affect Care: None marital status: Current Living Situation: Spouse current occupational status: employed Feels Safe at Home: Yes Assistive Devices: None Allergies Allergies Allergy/AdvReac Type Severity Reaction Status Date / Time aluminum hydroxide Allergy Severe hives and Verified 10/04/25 12:55 [From Maalox Maximum swelling Strength] atropine [From ] Allergy Severe hives and Verified 10/04/25 12:55 swelling hyoscyamine [From ] Allergy Severe hives and Verified 10/04/25 12:55 swelling lidocaine Allergy Severe hives and Verified 10/04/25 12:55 swelling magnesium hydroxide Allergy Severe hives and Verified 10/04/25 12:55 [From Maalox Maximum swelling Strength] phenobarbital [From ] Allergy Severe hives and Verified 10/04/25 12:55 swelling scopolamine [From ] Allergy Severe hives and Verified 10/04/25 12:55 swelling simethicone Allergy Severe hives and Verified 10/04/25 12:55 [From Maalox Maximum swelling Strength] hydroxyzine Allergy Intermediate hives Verified 10/04/25 12:55 ketorolac Allergy Intermediate HIVES Verified 10/04/25 12:55 metoclopramide Allergy Intermediate hives Verified 10/04/25 12:55 Home Meds Home Medications Medication Instructions Recorded Confirmed levothyroxine 25 mcg tablet 25 mcg PO DAILY 07/30/20 10/08/25 ibuprofen 200 mg tablet 800 mg PO Q8 PRN Pain 02/21/23 10/08/25 losartan 50 mg-hydrochlorothiazide 1 tab PO DAILY 02/21/23 10/08/25 12.5 mg tablet omeprazole 20 mg capsule,delayed 20 mg PO DAILY 09/06/25 10/08/25 release Previous Rx's Medication Instructions Recorded ondansetron 4 mg disintegrating 4 mg PO Q6H PRN nausea and 08/26/25 tablet vomiting #30 tabs tramadol 50 mg tablet 50 mg PO Q6H PRN pain #7 tabs 08/26/25 ciprofloxacin HCl 500 mg tablet 500 mg PO Q12H #20 tabs 10/05/25 Results & Data (ED) Vital Signs Vital Signs - 24 hr 10/08/25 05:46 10/08/25 05:57 10/08/25 06:00 Temperature 36.4 C L Temperature Source Temporal Artery Scan Pulse Rate 79 74 Pulse Rate [Apical] 71 Pulse Rhythm [Apical] Regular Pulse Strength [Apical] Normal Respiratory Rate 18 12 Respiratory Effort / Characteristics Non-Labored Spontaneous Non-Labored Spontaneous Respiratory Depth Normal Normal Respiratory Pattern Regular Blood Pressure 135/90 Blood Pressure [Right Arm] 131/87 Blood Pressure Mean 105 Blood Pressure Mean [Right Arm] 101 Pulse Oximetry 100 100 Oxygen Delivery Method Room Air Room Air Sepsis Recent Fever Within 48 Hours No Sepsis New/Unexplained Change in Mental Status No Sepsis Action Taken by Nursing No Action Required 10/08/25 06:22 10/08/25 07:43 10/08/25 09:00 Temperature Temperature Source Pulse Rate Pulse Rate [Apical] 76 72 Pulse Rhythm [Apical] Regular Regular Pulse Strength [Apical] Normal Normal Respiratory Rate 18 18 Respiratory Effort / Characteristics Non-Labored Spontaneous Respiratory Depth Normal Respiratory Pattern Blood Pressure Blood Pressure [Right Arm] 140/59 L 136/75 Blood Pressure Mean Blood Pressure Mean [Right Arm] 86 95 Pulse Oximetry 100 99 99 Oxygen Delivery Method Room Air Room Air Room Air Sepsis Recent Fever Within 48 Hours Sepsis New/Unexplained Change in Mental Status Sepsis Action Taken by Nursing Laboratory Data 10/08/25 06:05 10/08/25 06:05 Lab Results 10/08/25 10/08/25 Range/Units 06:05 06:18 WBC 8.12 (4.8-10.8) K/ul RBC 4.31 (4.20-5.40) M/uL Hgb 12.7 (12.0-16.0) g/dL Hct 37.0 (37.0-47.0) % MCV 85.8 (80.0-100.0) fL MCH 29.5 (25.0-34.0) pg MCHC 34.3 (32.0-36.0) g/dL RDW Std Deviation 45.9 (36.4-46.3) fL RDW Coeff of Mayela 14.6 H (11.5-14.5) % Plt Count 262 (130-400) K/uL MPV 9.8 (9.4-12.4) fL Immature Gran % (Auto) 0.2 % Neut % (Auto) 57.4 % Lymph % (Auto) 21.7 % Wilkin % (Auto) 6.5 % Eos % (Auto) 13.8 % Baso % (Auto) 0.4 % Neut # (Auto) 4.66 (1.40-6.50) K/uL Lymph # (Auto) 1.76 (1.20-3.40) K/uL Wilkin # (Auto) 0.53 (0.11-0.59) K/uL Eos # (Auto) 1.12 H (0.00-0.50) K/uL Baso # (Auto) 0.03 (0.00-0.20) K/uL Immature Gran # (Auto) 0.02 (0.01-0.20) K/uL Sodium 138 (136-145) mmol/L Potassium 3.1 L (3.5-5.1) mmol/L Chloride 103 (98-107) mmol/L Carbon Dioxide 26 (21-32) mmol/L Anion Gap 9 (3-11) BUN 9 (6-23) mg/dl Creatinine 0.82 (0.6-1.2) mg/dl Est Cr Clr Drug Dosing 77.9 ml/min eGFR 80.82 BUN/Creatinine Ratio 11.0 (10-20) Glucose 100 H (70-99(Fasting)) mg/dl Calcium 9.7 (8.6-10.3) mg/dl Total Bilirubin 0.5 (0.2-1.0) mg/dl AST 10 L (13-39) U/L ALT 13 (7-52) U/L Alkaline Phosphatase 62 (34-104) U/L Total Protein 7.0 (6.0-8.3) gm/dl Albumin 4.1 (3.4-5.0) gm/dl Globulin 2.9 (2.5-4.0) gm/dl Albumin/Globulin Ratio 1.4 (0.9-2) Lipase 51 (11-82) U/L Urine Color Yellow Urine Appearance Clear (Clear) Urine pH 6.0 (4.5-7.5) Ur Specific Hubbard 1.024 (1.000-1.030) Urine Protein Trace H (Negative) Urine Glucose (UA) Negative (Negative) Urine Ketones Trace H (Negative) Urine Blood Negative (Negative) Urine Nitrite Negative (Negative) Urine Bilirubin Negative (Negative) Urine Urobilinogen Negative (Negative) Ur Leukocyte Esterase Trace H (Negative) Urine WBC (Auto) 0-5 (0-5) /hpf Urine RBC (Auto) 3-5 H (0-2) /hpf U Hyaline Cast (Auto) 3-5 H (0-2) /lpf U Epithel Cells (Auto) 3-5 H (0-2) /hpf Urine Bacteria (Auto) None Seen (None Seen) Urine Comment Administered Medications Pantoprazole Sodium (Protonix) 40 mg in 10 mls @ 5 mls/min IV BID [facility] Stop: 11/07/25 09:44 Last Admin: 10/08/25 09:45 Dose: 5 mls/min Documented By: nrs Sodium Chloride (Nss) 1,000 mls @ 125 mls/hr IV .Q8H MORALES Stop: 10/09/25 03:11 Last Admin: 10/08/25 11:46 Dose: 125 mls/hr Documented By: mayra Ondansetron HCl (Ondansetron Inj 2 Mg/Ml 2 Ml Vial) 4 mg IV Q6H PRN PRN Reason: Nausea Stop: 11/07/25 09:21 Last Admin: 10/08/25 09:45 Dose: 4 mg Documented By: nrs Discontinued Medications Fentanyl Citrate (Fentanyl Citrate Pf 100 Mcg/2 Ml Vial) 50 mcg IV NOW STA Stop: 10/08/25 06:59 Last Admin: 10/08/25 07:07 Dose: 50 mcg Documented By: nrs Hydromorphone HCl (Hydromorphone Inj 0.5 Mg/0.5 Ml Syr) 0.5 mg IV NOW STA Stop: 10/08/25 08:16 Last Admin: 10/08/25 08:31 Dose: 0.5 mg Documented By: nrs Ertapenem (Invanz 1000mg) 1,000 mg in 10 mls @ 2 mls/min IV ONE ONE Stop: 10/08/25 09:49 Last Admin: 10/08/25 09:45 Dose: 2 mls/min Documented By: nrs Ioversol (Optiray 320 100ml) 94 ml IV ONCE ONE Stop: 10/08/25 07:58 Last Admin: 10/08/25 08:02 Dose: 94 ml Documented By: SRI Oxybutynin Chloride (Oxybutynin Chloride 5 Mg Tab) 5 mg PO NOW STA Stop: 10/08/25 09:29 Last Admin: 10/08/25 09:44 Dose: 5 mg Documented By: nrs Potassium Chloride (Potassium Chloride Crtab 20 Meq Tabcr) 40 meq PO NOW STA Stop: 10/08/25 06:59 Last Admin: 10/08/25 07:06 Dose: 40 meq Documented By: nrs Imaging Data Radiologist's Impression: Abdomen/Pelvis CT 10/08/25 06:43 EXAM: CT Abdomen and Pelvis With Intravenous Contrast INDICATION: Right lower quadrant pain. Sigmoid resection. TECHNIQUE: Axial computed tomography images of the abdomen and pelvis with intravenous contrast. Sagittal and coronal reformatted images were created and reviewed. This CT exam was performed using one or more of the following dose reduction techniques: automated exposure control, adjustment of the mA and/or kV according to patient size, and/or use of iterative reconstruction technique. CONTRAST: 94 ml of Optiray 320 was administered intravenously. COMPARISON: 09/06/2025 FINDINGS: Limitations: None. Lung bases: Stable benign-appearing oval 3 mm subpleural right middle lobe pulmonary nodule series 3 image 3. Pleural space: No visualized pleural effusion or pneumothorax. Heart: No abnormality noted. Mediastinum: No abnormality noted. ABDOMEN: Liver: No abnormality noted. Gallbladder and bile ducts: Cholecystectomy. No ductal dilation or stone noted. Pancreas: Homogeneous enhancement. No mass, inflammation or ductal dilation. Spleen: No acute abnormality noted. Adrenals: No acute abnormality noted. Kidneys and ureters: Normal enhancement. No mass, hydronephrosis or visualized stone. Stomach and bowel: Sigmoid resection staple line noted. No thickening or adjacent inflammation. There are now moderately thickened and inflamed, mildly dilated small bowel loops in the pelvis sparing the terminal ileum. Moderate amounts of stool in the colon. Scattered colonic diverticulosis. No diverticulitis. No obstruction. No pneumatosis. PELVIS: Appendix: No findings to suggest acute appendicitis. Bladder: No filling defects to suggest mass or large stone. No inflammation. Reproductive: Stable left adnexal oval structure with a small internal fluid collection or cyst measures 2.1 x 1.6 x 2.2 cm best seen on series 3 image 229. ABDOMEN and PELVIS: Intraperitoneal space: New small amounts of free fluid in the pelvis. No loculation. Drain previously noted in the left pelvis has been removed. Bones/joints: Degenerative changes noted throughout the spine. No acute osseous abnormality seen. Soft tissues: No acute abnormality noted. Vasculature: No abdominal aortic aneurysm. Lymph nodes: No pathologically enlarged lymph nodes. IMPRESSION: 1. Moderate to severe distal enteritis with probable developing obstruction. 2. Small amounts of free fluid now identified without organized or drainable collection identified. 3. Left lateral pelvic nodule with central fluid or cyst may reflect a retained left ovary. Conceivably, this could reflect a collapsed abscess cavity. Appearance unchanged. ACT 112: N/A Electronically signed by Zamzam Osorio 10-08-2025 08:21 AM Discharge Plan Visit Data Chief Complaint: Abdominal Pain Stated Complaint: POST OP, ABD PAIN ED Provider: Mariel Yousif Discharge Problem: Enteritis, SBO (small bowel obstruction) Patient Disposition: Admitted As Inpatient Condition: Fair Discharge Instructions Interventions: ED Discharge Assessment Last Done: 10/08/25 10:45
[2025-10-08] MEDS: POTASSIUM CHLORIDE CRTAB 20 MEQ TABCR PO STA (07:06)
[2025-10-08 07:15] LABS: Appearance Urine Clear (Clear); Bacteria Urine Automated None Seen (None Seen); Glucose Urine UA Negative (Negative); WBC Urine Automated 0-5 /hpf (0-5)
[2025-10-08] MEDS: OPTIRAY 320 100ml IV ONE (08:02)
--- NOTE | 2025-10-08 08:22 | CT Scan Report ---
EXAM: CT Abdomen and Pelvis With Intravenous Contrast INDICATION: Right lower quadrant pain. Sigmoid resection. TECHNIQUE: Axial computed tomography images of the abdomen and pelvis with intravenous contrast. Sagittal and coronal reformatted images were created and reviewed. This CT exam was performed using one or more of the following dose reduction techniques: automated exposure control, adjustment of the mA and/or kV according to patient size, and/or use of iterative reconstruction technique. CONTRAST: 94 ml of Optiray 320 was administered intravenously. COMPARISON: 09/06/2025 FINDINGS: Limitations: None. Lung bases: Stable benign-appearing oval 3 mm subpleural right middle lobe pulmonary nodule series 3 image 3. Pleural space: No visualized pleural effusion or pneumothorax. Heart: No abnormality noted. Mediastinum: No abnormality noted. ABDOMEN: Liver: No abnormality noted. Gallbladder and bile ducts: Cholecystectomy. No ductal dilation or stone noted. Pancreas: Homogeneous enhancement. No mass, inflammation or ductal dilation. Spleen: No acute abnormality noted. Adrenals: No acute abnormality noted. Kidneys and ureters: Normal enhancement. No mass, hydronephrosis or visualized stone. Stomach and bowel: Sigmoid resection staple line noted. No thickening or adjacent inflammation. There are now moderately thickened and inflamed, mildly dilated small bowel loops in the pelvis sparing the terminal ileum. Moderate amounts of stool in the colon. Scattered colonic diverticulosis. No diverticulitis. No obstruction. No pneumatosis. PELVIS: Appendix: No findings to suggest acute appendicitis. Bladder: No filling defects to suggest mass or large stone. No inflammation. Reproductive: Stable left adnexal oval structure with a small internal fluid collection or cyst measures 2.1 x 1.6 x 2.2 cm best seen on series 3 image 229. ABDOMEN and PELVIS: Intraperitoneal space: New small amounts of free fluid in the pelvis. No loculation. Drain previously noted in the left pelvis has been removed. Bones/joints: Degenerative changes noted throughout the spine. No acute osseous abnormality seen. Soft tissues: No acute abnormality noted. Vasculature: No abdominal aortic aneurysm. Lymph nodes: No pathologically enlarged lymph nodes. IMPRESSION: 1. Moderate to severe distal enteritis with probable developing obstruction. 2. Small amounts of free fluid now identified without organized or drainable collection identified. 3. Left lateral pelvic nodule with central fluid or cyst may reflect a retained left ovary. Conceivably, this could reflect a collapsed abscess cavity. Appearance unchanged. ACT 112: N/A Electronically signed by Zamzam Osorio 10-08-2025 08:21 AM
[2025-10-08] MEDS: HYDROmorphone INJ 0.5 MG/0.5 ML SYR IV STA (08:31)
[2025-10-08] MEDS ORDERED: ACETAMINOPHEN 325 MG TAB PO PRN (09:22)
[2025-10-08] MEDS ORDERED: POLYETHYLENE (MIRALAX) 17 GM PACK PO PRN (09:22)
--- NOTE | 2025-10-08 09:26 | History & Physical Report ---
Date of Service October 08, 2025 Assessment & Plan (1) Urinary tract infection: (2) Enteritis: (3) Hypokalemia: (4) Essential hypertension: Plan This is a 60 year old female with past medical history of diverticulitis s/p sigmoid resection on 09/11/2025 who presented to the ED on 10/08/2025 for abdominal pain & bladder spasms. While in the ED, she was found to have moderate-severe distal enteritis with probable developing obstruction on a CTAP. Her CBC was unremarkable. Her BMP was consistent with low potassium of 3.1 which was repleted. She was given Fentanyl, Dilaudid in the ED with minimal improvement in symptoms. She will be admitted under observation status for further care. #Enteritis recent sigmoid resection on 09/[address] Castro. Was doing well up until a few days ago where she developed bladder spasms & abdominal pain. Less likely bowel obstruction secondary to patient moving her bowels & has not vomited. Start PPI BID Monitor BM's Maintain NPO status w/ sips & chips allowed, if feeling better, can trial clear liquids this evening General surgery consulted secondary to recent operation, appreciate recommendations. Continue home tramadol for pain control. Zofran prn for N/V IVF while NPO #UTI w/ symptoms of "spasms" after emptying bladder. UC + for Klebsiella oxytoc. sensitivities reviewed, has resistance to multiple antibiotics. Was on Cipro outpatient but symptoms were not improving. CBC is without leukocytosis Start IV Ertapenem while inpatient ID consulted, appreciate recommendations. Oxybutynin prn for symptoms #Hypokalemia k low on admission at 3.1, s/p repletion recheck in AM #HTN On Losartan-HCTZ outpatient. Hold HCTZ in the setting of infection & hypokalemia, continue Losartan. #Hypothyroidism - Continue Synthroid, Check TSH in AM. DVT prophylaxis: Lovenox Code: full Updated at bedside 10/08. Case was discussed with Dr. Alfred at time of admission. History of Present Illness Primary Care Provider: Shi Velasquez MD This is a 60 year old female with past medical history of diverticulitis s/p sigmoid resection on 09/11/2025 who presented to the ED on 10/08/2025 for abdominal pain & bladder spasms. Liliam was seen & examined with her at bedside. She reports that she had been doing well up until a few days ago where she felt a "spasm" type sensation with bladder emptying and associated abdominal pain. She reports she was seen by her surgeon on the and had cipro called in for her on the secondary to a UTI. Reports no relief in taking the abx at home. She reports she has been moving her bowels well, 4 times yesterday. She admits to nausea but denies any vomiting. While in the ED, she was found to have moderate-severe distal enteritis with probable developing obstruction on a CTAP. Her CBC was unremarkable. Her BMP was consistent with low potassium of 3.1 which was repleted. She was given Fentanyl, Dilaudid in the ED with minimal improvement in symptoms. She will be admitted under observation status for further care. Code discussion did take place in the ED & she does confirm she is a full code. Allergies Allergy/AdvReac Type Severity Reaction Status Date / Time aluminum hydroxide Allergy Severe hives and Verified 10/04/25 12:55 [From Maalox Maximum swelling Strength] atropine [From ] Allergy Severe hives and Verified 10/04/25 12:55 swelling hyoscyamine [From ] Allergy Severe hives and Verified 10/04/25 12:55 swelling lidocaine Allergy Severe hives and Verified 10/04/25 12:55 swelling magnesium hydroxide Allergy Severe hives and Verified 10/04/25 12:55 [From Maalox Maximum swelling Strength] phenobarbital [From ] Allergy Severe hives and Verified 10/04/25 12:55 swelling scopolamine [From ] Allergy Severe hives and Verified 10/04/25 12:55 swelling simethicone Allergy Severe hives and Verified 10/04/25 12:55 [From Maalox Maximum swelling Strength] hydroxyzine Allergy Intermediate hives Verified 10/04/25 12:55 ketorolac Allergy Intermediate HIVES Verified 10/04/25 12:55 metoclopramide Allergy Intermediate hives Verified 10/04/25 12:55 Home Medications Medication Instructions Recorded Confirmed Type levothyroxine 25 mcg tablet 25 mcg PO DAILY 07/30/20 10/08/25 History ibuprofen 200 mg tablet 800 mg PO Q8 PRN Pain 02/21/23 10/08/25 History losartan 50 mg-hydrochlorothiazide 1 tab PO DAILY 02/21/23 10/08/25 History 12.5 mg tablet ondansetron 4 mg disintegrating 4 mg PO Q6H PRN nausea and 08/26/25 10/08/25 Rx tablet vomiting #30 tabs tramadol 50 mg tablet 50 mg PO Q6H PRN pain #7 tabs 08/26/25 10/08/25 Rx omeprazole 20 mg capsule,delayed 20 mg PO DAILY 09/06/25 10/08/25 History release ciprofloxacin HCl 500 mg tablet 500 mg PO Q12H #20 tabs 10/05/25 10/08/25 Rx Past Med/Surg History Problem List SBO (small bowel obstruction) (Acute) Enteritis (Acute) Urinary tract infection Bladder spasms Encounter for surgical aftercare following surgery of digestive system Hypokalemia Hypophosphatemia (Acute) Essential hypertension Hypothyroidism (acquired) Diverticulitis of intestine with abscess (Acute) Gastroesophageal reflux disease (Chronic) Surgical History History of hysterectomy History of appendectomy History of cholecystectomy S/P ureteral stent placement (09/11/25) Bilateral Ureteral Stent Insertions - Spencer Pascual MD S/P laparoscopic-assisted sigmoidectomy (09/11/25) Laparoscopic Sigmoidectomy with Anastomosis, laparoscopic mobilization of splenic flexure- Srini Castro MD Social History Smoking Status: Never smoker Second Hand Exposure: No; Do You Dip or Chew Tobacco: No; Hx Alcohol Use: No Hx Substance Use: No Preferred Language: Yemeni Communication Ability: Effective Visual Impairment: No Limitations Toy Stuffer Required: No Beliefs That Will Affect Care: None marital status: Current Living Situation: Spouse current occupational status: employed Feels Safe at Home: No Is there a partner from a previous relationship who is making you feel unsafe now?: No Any Concerns about Your Family Situation: No Would You Like to Speak to Someone About Your Situation: No Assistive Devices: None Physical Exam Physical Exam: General: NAD, VS: BP 144/86; P78; R17; T36.5C Resp: normal respiratory effort, lungs clear to auscultation CV: RRR, no murmur Abd: normal bowel sounds, generalized abdominal tenderness. Incisions intact & no erythema/exudate noticed. Extremities: Moves all extremities, no edema, sensation intact Neuro: A&O x3 Skin: intact, no lesions noted Results & Data Results & Data Vital Signs (Past 12 Hours) Vital Signs Temp Pulse Pulse Resp BP BP Pulse Ox 10/08/25 09:00 72 18 136/75 99 10/08/25 07:43 76 18 140/59 L 99 10/08/25 06:22 100 10/08/25 06:00 74 10/08/25 05:57 71 12 131/87 100 10/08/25 05:46 36.4 C L 79 18 135/90 100 O2 Del Method 10/08/25 09:00 Room Air 10/08/25 07:43 Room Air 10/08/25 06:22 Room Air 10/08/25 06:00 10/08/25 05:57 Room Air 10/08/25 05:46 Room Air PG Care Time/CCT Total # of Minutes Spent Total Time Spent with Patient: Total time spent is greater than 50% in coordination of care (as documented) at patient's floor/unit and/or counseling patient: Coding Level of Care Code 12652 INT INP/OBS CARE 3/75MIN Diagnoses Urinary tract infection N39.0 Encounter type: initial encounter Enteritis K52.9 Hypokalemia E87.6 Essential hypertension I10 (1) Urinary tract infection Encounter type: initial encounter
[2025-10-08] MEDS: ONDANSETRON INJ 2 MG/ML 2 ML VIAL IV PRN (09:45)
[2025-10-08] MEDS: ERTAPENEM 1000MG 1,000 MG/10 ML SYR IV ONE (09:45)
[2025-10-08] MEDS: PANTOprazole 40 MG/10 ML SYR IV SCH (09:45)
[2025-10-08] MEDS: SODIUM CHLORIDE 0.9% 1,000 ML IV SCH (11:46)
[2025-10-08] MEDS ORDERED: HYDROmorphone INJ 0.5 MG/0.5 ML SYR IV PRN (16:52)
[2025-10-08] MEDS: HYDROmorphone INJ 1 MG/ML SYRINGE IV PRN (17:21)
--- NOTE | 2025-10-08 18:21 | Surgery Consultation ---
<Statement entered by Amauri Rojas DO - 10/08/25 18:42> I have seen and examined this pt this am with the surgical PA. I agree with this plan. Date of Consultation October 08, 2025 Assessment & Plan (1) SBO (small bowel obstruction): (2) Enteritis: Plan Patient currently does have some abdominal pain, but no overt peritoneal signs, and no evidence of perforation or free air on CAT scan, so no indication for emergent surgical exploration at this time. CT scan was further reviewed and the colorectal anastomosis appears to be patent and no obvious fluid collections that would suggest leak. We suspect that the patient may have a enteritis that could be causing a small bowel obstruction versus ileus. Our hope is to treat conservatively with bowel rest and this should resolve with time. For now, would recommend keeping her n.p.o., IV fluids, IV pain medication, continue antibiotics for her UTI per the medicine team, but we do not see any indication for antibiotics for any intra-abdominal source. Okay from a surgical standpoint for pharmacologic DVT prophylaxis. Remainder of her care per the primary medicine team, general surgery will continue to follow for now. History of Present Illness Reason for Consultation: recent sigmoid resection, now with enteritis Attending Physician: Keith Alfred History of Present Illness Patient is a 60-year-old female with a past medical history significant for hypothyroidism, hypertension, GERD, and a history of recurrent diverticulitis who underwent a sigmoid resection with primary anastomosis on September 11, 2025, who now presents to the emergency department complaining of abdominal pain and "bladder spasms ". Patient states that after discharge on September 15, 2025 she has been recovering well at home, tolerating a regular diet without any nausea or vomiting, passing flatus and having normal bowel movements. She states that several days ago she began to develop a significant amount of abdominal pain, primarily on the right side, described as sharp and stabbing, severe in intensity, worse with movement, somewhat better at rest, but otherwise without any obvious aggravating or relieving factors. Patient also mentions that she has felt spasms while emptying her bladder. These occur just after emptying her bladder and can be severe in intensity. Patient states that she saw her surgeon for her regular postop check and was doing well, however due to her urinary symptoms she had a urinalysis which initially was negative, however on follow-up urinalysis showed that she had a UTI. She was started on Cipro as an outpatient, however her abdominal pain has persisted and so she came to the em ergency department for evaluation. Upon her initial evaluation she was hemodynamically stable and afebrile. Her exam was significant for moderate right-sided abdominal tenderness but without overt peritoneal signs. Her labs were relatively unremarkable, her white blood cell count was normal at 8.12 and had mild hypokalemia, but otherwise electrolytes and renal function were within normal limits. She had a CAT scan of the abdomen pelvis which showed moderate to severe distal enteritis with a small amount of free fluid and concerns for possible partial small bowel obstruction. She was admitted to the hospitalist service for further workup of this and general surgery was consulted. Allergies Allergy/AdvReac Type Severity Reaction Status Date / Time aluminum hydroxide Allergy Severe hives and Verified 10/04/25 12:55 [From Maalox Maximum swelling Strength] atropine [From ] Allergy Severe hives and Verified 10/04/25 12:55 swelling hyoscyamine [From ] Allergy Severe hives and Verified 10/04/25 12:55 swelling lidocaine Allergy Severe hives and Verified 10/04/25 12:55 swelling magnesium hydroxide Allergy Severe hives and Verified 10/04/25 12:55 [From Maalox Maximum swelling Strength] phenobarbital [From ] Allergy Severe hives and Verified 10/04/25 12:55 swelling scopolamine [From ] Allergy Severe hives and Verified 10/04/25 12:55 swelling simethicone Allergy Severe hives and Verified 10/04/25 12:55 [From Maalox Maximum swelling Strength] hydroxyzine Allergy Intermediate hives Verified 10/04/25 12:55 ketorolac Allergy Intermediate HIVES Verified 10/04/25 12:55 metoclopramide Allergy Intermediate hives Verified 10/04/25 12:55 Home Medications Medication Instructions Recorded Confirmed Type levothyroxine 25 mcg tablet 25 mcg PO DAILY 07/30/20 10/08/25 History ibuprofen 200 mg tablet 800 mg PO Q8 PRN Pain 02/21/23 10/08/25 History losartan 50 mg-hydrochlorothiazide 1 tab PO DAILY 02/21/23 10/08/25 History 12.5 mg tablet ondansetron 4 mg disintegrating 4 mg PO Q6H PRN nausea and 08/26/25 10/08/25 Rx tablet vomiting #30 tabs tramadol 50 mg tablet 50 mg PO Q6H PRN pain #7 tabs 08/26/25 10/08/25 Rx omeprazole 20 mg capsule,delayed 20 mg PO DAILY 09/06/25 10/08/25 History release ciprofloxacin HCl 500 mg tablet 500 mg PO Q12H #20 tabs 10/05/25 10/08/25 Rx Patient History Surgical History History of hysterectomy History of appendectomy History of cholecystectomy S/P ureteral stent placement (09/11/25) Bilateral Ureteral Stent Insertions - Spencer Pascual MD S/P laparoscopic-assisted sigmoidectomy (09/11/25) Laparoscopic Sigmoidectomy with Anastomosis, laparoscopic mobilization of splenic flexure- Srini Castro MD Social History Smoking Status: Never smoker Second Hand Exposure: No; Do You Dip or Chew Tobacco: No; Hx Alcohol Use: No Hx Substance Use: No Preferred Language: Mauritanian Communication Ability: Effective Visual Impairment: No Limitations Fire Systems Inspector Required: No Beliefs That Will Affect Care: None marital status: Current Living Situation: Spouse current occupational status: employed Feels Safe at Home: No Is there a partner from a previous relationship who is making you feel unsafe now?: No Any Concerns about Your Family Situation: No Would You Like to Speak to Someone About Your Situation: No Assistive Devices: None Review of Systems Review of Systems: All systems reviewed & are unremarkable except as noted in HPI & below Physical Exam Physical Exam: Gen: Awake and alert, resting comfortably in bed in NAD CV: RRR PULM: non-labored breathing Abd: Abd soft, non-distended, moderately tender to the right side abdomen and suprapubic area, but no guarding, no rigidity, no overt peritoneal signs. ext: no edema to bilateral lower ext, SCDs in place, non-tender, feet warm and well perfused Results & Data Vital Signs (Past 12 Hours) Vital Signs Temp Pulse Pulse Pulse Resp BP Pulse Ox 10/08/25 14:28 36.6 C 60 18 129/71 100 10/08/25 13:03 36.5 C 78 17 142/76 H 98 11/30/25 11:18 36.5 C 78 17 144/86 H 10/08/25 11:17 36.5 C 78 17 144/86 H 10/08/25 10:45 10/08/25 09:54 72 10/08/25 09:23 65 16 123/66 97 10/08/25 09:00 72 18 136/75 99 10/08/25 07:43 76 18 140/59 L 99 10/08/25 06:22 100 O2 Del Method 10/08/25 14:28 Room Air 10/08/25 13:03 Room Air 10/08/25 11:18 Room Air 10/08/25 11:17 Room Air 10/08/25 10:45 Room Air 10/08/25 09:54 10/08/25 09:23 Room Air 10/08/25 09:00 Room Air 10/08/25 07:43 Room Air 10/08/25 06:22 Room Air Diagnostic Findings CT abd/pelvis: IMPRESSION: 1. Moderate to severe distal enteritis with probable developing obstruction. 2. Small amounts of free fluid now identified without organized or drainable collection identified. 3. Left lateral pelvic nodule with central fluid or cyst may reflect a retained left ovary. Conceivably, this could reflect a collapsed abscess cavity. Appearance unchanged. PG Care Time/CCT Total # of Minutes Spent Total Time Spent with Patient: Total time spent is greater than 50% in coordination of care (as documented) at patient's floor/unit and/or counseling patient: Coding [place] [address] IN/OBS CONSULT LVL 5,80M Patient Type Established History Problem Focused Exam Problem Focused Medical Decision Making Straight Forward Diagnoses SBO (small bowel obstruction) K56.609 Enteritis K52.9
[2025-10-08] MEDS: ENOXAPARIN INJ 40 MG/0.4 ML SYR SQ SCH (20:07)
[2025-10-09] MEDS: LEVOTHYROXINE SODIUM 25 MCG TABLET PO SCH (06:02)
[2025-10-09 07:36] LABS: Hematocrit (blood only) 35.1 % (37.0-47.0); Hemoglobin 11.7 g/dL (12.0-16.0); Mean Corpuscular Hemoglobin 29.3 pg (25.0-34.0); Mean Corpuscular Volume 87.8 fL (80.0-100.0); Platelet Count 236 K/uL (130-400); RDW Standard Deviation 48.4 fL (36.4-46.3); Red Blood Count 4.00 M/uL (4.20-5.40); White Blood Count 8.27 K/ul (4.8-10.8)
[2025-10-09 08:14] LABS: Anion Gap 5.0 (3-11); Blood Urea Nitrogen 8.0 mg/dl (6-23); Calcium 8.6 mg/dl (8.6-10.3); Carbon Dioxide 27.0 mmol/L (21-32); Chloride 107.0 mmol/L (98-107); Creatinine Clr Calc Pharmacy 84.1 ml/min; Glucose 91.0 mg/dl (70-99(Fasting)); Magnesium 1.8 mg/dl (1.7-2.4); Potassium 3.9 mmol/L (3.5-5.1); Sodium 139.0 mmol/L (136-145); Thyroid Stimulating Hormone 1.164 uIu/ml (0.300-4.500)
--- NOTE | 2025-10-09 09:09 | Infectious Disease Consult ---
Date of Consultation October 09, 2025 Assessment & Plan (1) Urinary tract infection: (2) Enteritis: (3) SBO (small bowel obstruction): Plan Problems: #ESLB Kleb oxytoca UTI #Abdominal pain #Diverticulitis c/b abscess s/p drain (08/23/25) with persistent abscess and c/f colovesical fistula s/p sigmoid resection with primary anastomosis (09/11/25) Micro: 10/04 UCx: Kleb oxytoca/Mak ornith (ESBL. S amikacin, cefoxitin, cipro, erta, gent, levo, sinan, nitro, tobra, TMP/SMX) 08/23 Abdominal abscess cx: E coli (S amox/clav, cefazolin, cipro. R TMP/SMX), Pseudomonas aeruginosa (llanos-S), Bacteroides ovatus group, moderate counts of probable skin benny Abx: Ertapenem 10/08 - present Cipro 10/06 - 10/08 60 yo F with history of hypothyroidism, HTN, GERD, diverticulitis c/b abscess s/p drain (08/23/25, cx with E coli, PsA, Bacteroides) discharged on cipro x 10 days, admitted 09/06-09/14 with worsened abdominal pain, continued abscess, and concern for colovesical fistula s/p sigmoid resection with primary anastomosis (09/11/25, intra-op there was an area of bladder irritation where early fistula likely developed, but no full thickness defect to close) and discharged with Augmentin x 5 days for total 11 day antibiotic course, who presented on 10/08 with abdominal pain and spasms. She had been doing well up until a few days ago when she felt a "spasm" type sensation with bladder emptying, and abdominal pain. She saw her surgeon for follow-up on 10/04 where she reported these symptoms. UA showed 21-50 WBCs and UCx grew Kleb oxytoca/Raoultella ornithinolytica, and ciprofloxacin was called in on 10/06 for treatment of UTI. Pt reports no relief after taking ciprofloxacin. On presentation, pt was afebrile, VSS. Labs showed no leukocytosis. UA with 0-[address] AP with IV contrast showed moderate to severe distal enteritis with probable developing obstruction. Small amounts of free fluid now identified without organized or drainable collection. L lateral pelvic nodule with central fluid or cyst may reflect a retained L ovary. Conceivably this could reflect a collapsed abscess cavity. She was started on ertapenem for UTI. Surgery was consulted and felt there was no need for emergent surgical exploration, and the colorectal anastomosis appeared patent and there were no obvious fluid collections that would suggest leak. Recommended bowel rest. On my evaluation, pt reports that she has been having abdominal pain for several days. Has also been having spasms every time she urinates. The abdominal pain persists even when not urinating. She notes that the spasms seem to have resolved, as she did not have spasms this morning when urinating. Discussion: Pt with spasms when urinating, c/f UTI. Initial source could be the recent colovesical fistula; per 09/11 operative note, no full thickness defect to close. UCx growing Kleb oxytoca with resistance pattern suggesting ESBL. CTAP without signs of pyelonephritis, and pt without leukocytosis. Will treat as cystitis. Ciprofloxacin was active against the Kleb, will continue ertapenem a couple more days to complete the course of treatment. Pt's spasms with urination now resolved, but still with persistent abdominal pain--perhaps related to the enteritis/developing obstruction seen on CT. Recommendations: - Continue ertapenem 1 g q24h through 10/10 to complete a 5 day course of antibiotics for UTI Will sign off. Consultation Information Consultation was provided via telemedicine using two-way real-time interactive telecommunication between the patient and the telemedicine provider. For the duration of the visit, the provider was performing the assessment from a different facility than the patient. This includesuse of bluetooth stethoscope forauscultationperformed by the telepresenter that the telemedicine provider can hear if described in the physical exam. Helper Teacher contact information: Please call [facility] [phone]. (Phone Number For Physician Use Only) After establishing a telemedicine visit, patient was: Patient was verified with two unique identifiers, Patient/authorized rep acknowledged consent and understanding and Gave permission to continue telehealth session Time Spent with Patient: Initial => 55 min History of Present Illness Reason for Consultation: UTI Attending Physician: Elise Rios MD History of Present Illness 60 yo F with history of hypothyroidism, HTN, GERD, diverticulitis c/b abscess s/p drain (08/23/25) discharged on cipro x 10 days, admitted 09/06-09/14 with worsened abdominal pain, continued abscess, and concern for colovesical fistula s/p sigmoid resection with primary anastomosis (09/11/25, intra-op there was an area of bladder irritation where early fistula likely developed, but no full thickness defect to close) and discharged with Augmentin x 5 days for total 11 day antibiotic course, who presented on 10/08 with abdominal pain and spasms. She had been doing well up until a few days ago when she felt a "spasm" type sensation with bladder emptying, and associated abdominal pain. She saw her surgeon for follow-up on 10/04 where she reported these symptoms. UA showed 21- 50 WBCs and UCx grew Kleb oxytoca/Raoultella ornithinolytica, and ciprofloxacin was called in on 10/06 for treatment of UTI. Pt reports no relief after taking ciprofloxacin. On presentation, pt was afebrile, VSS. Labs showed no leukocytosis. UA with 0-[address] AP with IV contrast showed moderate to severe distal enteritis with probable developing obstruction. Small amounts of free fluid now identified without organized or drainable collection. L lateral pelvic nodule with central fluid or cyst may reflect a retained L ovary. Conceivably this could reflect a collapsed abscess cavity. She was started on ertapenem for UTI. Surgery was consulted and felt there was no need for emergent surgical exploration, and the colorectal anastomosis appeared patent and there were no obvious fluid collections that would suggest leak. Recommended bowel rest. On my evaluation, pt reports that she has been having abdominal pain for several days. Has also been having spasms every time she urinates. The abdominal pain persists even when not urinating. She notes that the spasms seem to have resolved, as she did not have spasms this morning when urinating. Allergies Allergy/AdvReac Type Severity Reaction Status Date / Time aluminum hydroxide Allergy Severe hives and Verified 10/04/25 12:55 [From Maalox Maximum swelling Strength] atropine [From ] Allergy Severe hives and Verified 10/04/25 12:55 swelling hyoscyamine [From ] Allergy Severe hives and Verified 10/04/25 12:55 swelling lidocaine Allergy Severe hives and Verified 10/04/25 12:55 swelling magnesium hydroxide Allergy Severe hives and Verified 10/04/25 12:55 [From Maalox Maximum swelling Strength] phenobarbital [From ] Allergy Severe hives and Verified 10/04/25 12:55 swelling scopolamine [From ] Allergy Severe hives and Verified 10/04/25 12:55 swelling simethicone Allergy Severe hives and Verified 10/04/25 12:55 [From Maalox Maximum swelling Strength] hydroxyzine Allergy Intermediate hives Verified 10/04/25 12:55 ketorolac Allergy Intermediate HIVES Verified 10/04/25 12:55 metoclopramide Allergy Intermediate hives Verified 10/04/25 12:55 Home Medications Medication Instructions Recorded Confirmed Type levothyroxine 25 mcg tablet 25 mcg PO DAILY 07/30/20 10/08/25 History ibuprofen 200 mg tablet 800 mg PO Q8 PRN Pain 02/21/23 10/08/25 History losartan 50 mg-hydrochlorothiazide 1 tab PO DAILY 02/21/23 10/08/25 History 12.5 mg tablet ondansetron 4 mg disintegrating 4 mg PO Q6H PRN nausea and 08/26/25 10/08/25 Rx tablet vomiting #30 tabs tramadol 50 mg tablet 50 mg PO Q6H PRN pain #7 tabs 08/26/25 10/08/25 Rx omeprazole 20 mg capsule,delayed 20 mg PO DAILY 09/06/25 10/08/25 History release ciprofloxacin HCl 500 mg tablet 500 mg PO Q12H #20 tabs 10/05/25 10/08/25 Rx Patient History Surgical History History of hysterectomy History of appendectomy History of cholecystectomy S/P ureteral stent placement (09/11/25) Bilateral Ureteral Stent Insertions - Spencer Pascual MD S/P laparoscopic-assisted sigmoidectomy (09/11/25) Laparoscopic Sigmoidectomy with Anastomosis, laparoscopic mobilization of splenic flexure- Srini Castro MD Social History Smoking Status: Never smoker Second Hand Exposure: No; Do You Dip or Chew Tobacco: No; Hx Alcohol Use: No Hx Substance Use: No Preferred Language: Icelandic Communication Ability: Effective Visual Impairment: No Limitations Dust Collector Ore Crushing Required: No Beliefs That Will Affect Care: None marital status: Current Living Situation: Spouse current occupational status: employed Feels Safe at Home: No Is there a partner from a previous relationship who is making you feel unsafe now?: No Any Concerns about Your Family Situation: No Would You Like to Speak to Someone About Your Situation: No Assistive Devices: None Review of System A complete ROS was performed and is negative except as mentioned in the HPI. Physical Exam Physical Exam: GEN: laying in bed in NAD, tearful RESP: No increased work of breathing ABD: Soft, non-distended. TTP in RLQ NEURO: Alert and oriented. Answers all questions appropriately. Speech not slurred. PSYCH: Normal mood, affect appropriate. Results & Data Vital Signs (Past 12 Hours) Vital Signs Temp Pulse Resp BP BP Pulse Ox O2 Del Method 10/09/25 07:09 36.7 C 68 16 144/78 H 99 Room Air 10/08/25 22:12 36.7 C 62 18 116/71 99 Room Air Laboratory Results Short CBC 10/09/25 Range/Units 06:41 WBC 8.27 (4.8-10.8) K/ul Hgb 11.7 L (12.0-16.0) g/dL Hct 35.1 L (37.0-47.0) % Plt Count 236 (130-400) K/uL BMP 10/09/25 06:41 Sodium 139 Potassium 3.9 D Chloride 107 Carbon Dioxide 27 BUN 8 Creatinine 0.76 Glucose 91 Calcium 8.6 Diagnostic Findings Abdomen/Pelvis CT 10/08/25 06:43 EXAM: CT Abdomen and Pelvis With Intravenous Contrast INDICATION: Right lower quadrant pain. Sigmoid resection. TECHNIQUE: Axial computed tomography images of the abdomen and pelvis with intravenous contrast. Sagittal and coronal reformatted images were created and reviewed. This CT exam was performed using one or more of the following dose reduction techniques: automated exposure control, adjustment of the mA and/or kV according to patient size, and/or use of iterative reconstruction technique. CONTRAST: 94 ml of Optiray 320 was administered intravenously. COMPARISON: 09/06/2025 FINDINGS: Limitations: None. Lung bases: Stable benign-appearing oval 3 mm subpleural right middle lobe pulmonary nodule series 3 image 3. Pleural space: No visualized pleural effusion or pneumothorax. Heart: No abnormality noted. Mediastinum: No abnormality noted. ABDOMEN: Liver: No abnormality noted. Gallbladder and bile ducts: Cholecystectomy. No ductal dilation or stone noted. Pancreas: Homogeneous enhancement. No mass, inflammation or ductal dilation. Spleen: No acute abnormality noted. Adrenals: No acute abnormality noted. Kidneys and ureters: Normal enhancement. No mass, hydronephrosis or visualized stone. Stomach and bowel: Sigmoid resection staple line noted. No thickening or adjacent inflammation. There are now moderately thickened and inflamed, mildly dilated small bowel loops in the pelvis sparing the terminal ileum. Moderate amounts of stool in the colon. Scattered colonic diverticulosis. No diverticulitis. No obstruction. No pneumatosis. PELVIS: Appendix: No findings to suggest acute appendicitis. Bladder: No filling defects to suggest mass or large stone. No inflammation. Reproductive: Stable left adnexal oval structure with a small internal fluid collection or cyst measures 2.1 x 1.6 x 2.2 cm best seen on series 3 image 229. ABDOMEN and PELVIS: Intraperitoneal space: New small amounts of free fluid in the pelvis. No loculation. Drain previously noted in the left pelvis has been removed. Bones/joints: Degenerative changes noted throughout the spine. No acute osseous abnormality seen. Soft tissues: No acute abnormality noted. Vasculature: No abdominal aortic aneurysm. Lymph nodes: No pathologically enlarged lymph nodes. IMPRESSION: 1. Moderate to severe distal enteritis with probable developing obstruction. 2. Small amounts of free fluid now identified without organized or drainable collection identified. 3. Left lateral pelvic nodule with central fluid or cyst may reflect a retained left ovary. Conceivably, this could reflect a collapsed abscess cavity. Appearance unchanged. ACT 112: N/A Electronically signed by Zamzam Osorio 10-08-2025 08:21 AM (1) Urinary tract infection Encounter type: initial encounter
[2025-10-09] MEDS: LOSARTAN POTASSIUM 50 MG TAB PO SCH (09:44)
[2025-10-09] MEDS: ERTAPENEM 1000MG 1,000 MG/10 ML SYR IV SCH (09:44)
[2025-10-09] MEDS: LIDOCAINE 5% 1 PATCH TD SCH (14:08)
--- NOTE | 2025-10-09 15:56 | Surgery Progress Note ---
Date of Service October 09, 2025 Assessment & Plan (1) SBO (small bowel obstruction): (2) Enteritis: Plan Patient is a 60-year-old female who is status post laparoscopic hand-assisted sigmoid colectomy with primary anastomosis for complicated diverticulitis with abscess cavity from diverticulitis with early inflammation and possible early fistula to bladder. However at time of surgery, there was no full-thickness bladder defect. Her surgery date was on September 11 of this year. She was doing well but recently did have some bladder type spasm pain and was seen in my office and was diagnosed with a UTI and was treated with Cipro but her pain worsened including some abdominal pain and thus what brought her into the ER. She had a CAT scan of her abdomen and pelvis that showed small bowel enteritis with a normal and patent appearing anastomosis from the colon to the rectum. Her antibiotics were changed. Her white blood cell count is normal. She is hemodynamically stable. Recommend continue IV antibiotics as recommended by ID, advance diet slowly. May repeat CAT scan with oral contrast tomorrow. Also will add lidocaine patch Admission and Anticipated Discharge Date Admission Date: October 08, 2025 Subjective Patient reports improvement in her bladder spasm type pain but still does have pain in the right lower quadrant at the prior surgical port site. She denies bowel movement but does report passing some gas. She does feel hungry but does feel somewhat nauseous at times as well. Review of Systems Review of Systems: All systems reviewed & are unremarkable except as noted in HPI & below Physical Exam Constitutional: WD/WN, vitals as above Eyes: PERRL, conjunctivae normal, anicteric sclerae Gastrointestinal (Abdomen): Soft, nondistended, nontender, even at the area of concern, which is underlying a surgical port site scar. Results & Data Vital Signs (Past 12 Hours) Vital Signs Temp Pulse Resp BP Pulse Ox O2 Del Method 10/09/25 15:23 36.8 C 71 18 125/72 99 Room Air 10/09/25 07:09 36.7 C 68 16 144/78 H 99 Room Air PG Care Time/CCT Total # of Minutes Spent Total Time Spent with Patient: Total time spent is greater than 50% in coordination of care (as documented) at patient's floor/unit and/or counseling patient: Coding Level of Care Code 43147 SUB INP/OBS CARE 2/35MIN Diagnoses SBO (small bowel obstruction) K56.609 Enteritis K52.9
[2025-10-09] MEDS: REMOVE LIDODERM PATCH SCH (21:59)
--- NOTE | 2025-10-09 23:35 | Hospitalist Progress Note ---
Date of Service October 09, 2025 Assessment & Plan (1) Urinary tract infection: (2) Enteritis: (3) Hypokalemia: (4) Essential hypertension: Plan This is a 60 year old female with past medical history of diverticulitis s/p sigmoid resection on 09/11/2025 who presented to the ED on 10/08/2025 for abdominal pain & bladder spasms. While in the ED, she was found to have moderate-severe distal enteritis with probable developing obstruction on a CTAP. Her CBC was unremarkable. Her BMP was consistent with low potassium of 3.1 which was repleted. She was given Fentanyl, Dilaudid in the ED with minimal improvement in symptoms. She will be admitted under observation status for further care. #Enteritis recent sigmoid resection on 09/[address] Castro. Was doing well up until a few days ago where she developed bladder spasms & abdominal pain. Less likely bowel obstruction secondary to patient moving her bowels & has not vomited. Start PPI BID Monitor BM's Now on clears, will advance diet tomorrow, may have crackers today. General surgery consulted secondary to recent operation, appreciate recommendations. Continue home tramadol for pain control. Zofran prn for N/V IVF while NPO #UTI w/ symptoms of "spasms" after emptying bladder. UC + for Klebsiella oxytoc. sensitivities reviewed, has resistance to multiple antibiotics. Was on Cipro outpatient but symptoms were not improving. CBC is without leukocytosis Start IV Ertapenem while inpatient ID consulted, appreciate recommendations. Oxybutynin prn for symptoms #Hypokalemia k low on admission at 3.1, s/p repletion recheck in AM #HTN On Losartan-HCTZ outpatient. Hold HCTZ in the setting of infection & hypokalemia, continue Losartan. #Hypothyroidism - Continue Synthroid, Check TSH in AM. DVT prophylaxis: Lovenox Code: full . Admission and Anticipated Discharge Date Admission Date: October 08, 2025 Subjective Patient reports feeling hungry. Patient has no new complaints. She is stil not having any BMs, but would like to have crackers. Physical Exam Constitutional: WD/WN, vitals as above Neck: trachea midline, no thyromegaly Respiratory: normal respiratory effort, lungs clear to auscultation Cardiovascular: RRR, no murmur, no edema Neurologic: PERRL, EOMI, accommodation nl, no face palsy, no dysarthria Psychiatric: A+Ox3, euthymic affect Results & Data Results & Data Vital Signs (Past 12 Hours) Vital Signs Temp Pulse Resp BP Pulse Ox O2 Del Method 10/09/25 23:20 36.8 C 67 16 108/71 97 Room Air 10/09/25 15:23 36.8 C 71 18 125/72 99 Room Air PG Care Time/CCT Total # of Minutes Spent Total Time Spent with Patient: Total time spent is greater than 50% in coordination of care (as documented) at patient's floor/unit and/or counseling patient: Coding Level of Care Code 94599 SUB INP/OBS CARE 2/35MIN Diagnoses Urinary tract infection N39.0 Encounter type: initial encounter Enteritis K52.9 Hypokalemia E87.6 Essential hypertension I10 (1) Urinary tract infection Encounter type: initial encounter
[2025-10-10 06:39] LABS: Hematocrit (blood only) 37.2 % (37.0-47.0); Hemoglobin 12.7 g/dL (12.0-16.0); Mean Corpuscular Hemoglobin 30.0 pg (25.0-34.0); Mean Corpuscular Volume 87.9 fL (80.0-100.0); Platelet Count 225 K/uL (130-400); RDW Standard Deviation 48.6 fL (36.4-46.3); Red Blood Count 4.23 M/uL (4.20-5.40); White Blood Count 7.89 K/ul (4.8-10.8)
[2025-10-10 07:10] LABS: Anion Gap 6.0 (3-11); Blood Urea Nitrogen 8.0 mg/dl (6-23); Calcium 8.9 mg/dl (8.6-10.3); Carbon Dioxide 28.0 mmol/L (21-32); Chloride 106.0 mmol/L (98-107); Creatinine Clr Calc Pharmacy 77.9 ml/min; Glucose 85.0 mg/dl (70-99(Fasting)); Potassium 4.1 mmol/L (3.5-5.1); Sodium 140.0 mmol/L (136-145)
[2025-10-10 13:47] LABS: Magnesium 1.9 mg/dl (1.7-2.4)
[2025-10-10] MEDS: PROCHLORPERAZINE 5 MG in SYRINGE 4 ML IV PRN (15:36)
--- NOTE | 2025-10-10 15:45 | Surgery Progress Note ---
Date of Service October 10, 2025 Assessment & Plan (1) SBO (small bowel obstruction): (2) Enteritis: Plan Patient is a 60-year-old female who is status post laparoscopic hand-assisted sigmoid colectomy with primary anastomosis for complicated diverticulitis with abscess cavity from diverticulitis with early inflammation and possible early fistula to bladder. However at time of surgery, there was no full-thickness bladder defect. Her surgery date was on September 11 of this year. She was doing well but recently did have some bladder type spasm pain and was seen in my office and was diagnosed with a UTI and was treated with Cipro but her pain worsened including some abdominal pain and thus what brought her into the ER. She reports this pain has actually been present before her surgery as well. She had a CAT scan of her abdomen and pelvis that showed small bowel enteritis with a normal and patent appearing anastomosis from the colon to the rectum. Her antibiotics were changed. Her white blood cell count is normal. She is hemodynamically stable. Recommend continue IV antibiotics as recommended by ID, advance diet slowly. Will also repeat imaging with oral contrast to evaluate the bowel better. Admission and Anticipated Discharge Date Admission Date: October 10, 2025 Subjective Patient reports feeling ongoing issues with midline abdominal pain. She reports that this was present even before surgery. She is passing some flatus, she has not had a bowel movement. She does not like the food here. She does report some nausea but no emesis. Review of Systems Review of Systems: All systems reviewed & are unremarkable except as noted in HPI & below Physical Exam Constitutional: WD/WN, vitals as above Eyes: PERRL, conjunctivae normal, anicteric sclerae ENMT: external ear and nose normal, oropharynx normal Neck: trachea midline, no thyromegaly Respiratory: Normal effort Cardiovascular: Rate/Rhythm: regular rate Gastrointestinal (Abdomen): Soft, slightly distended, incisions all healing well, mildly tender to palpation diffusely without any peritoneal signs Psychiatric: A+Ox3, euthymic affect Results & Data Vital Signs (Past 12 Hours) Vital Signs Temp Pulse Resp BP Pulse Ox O2 Del Method 10/10/25 15:29 36.8 C 76 18 115/74 99 Room Air 10/10/25 08:00 36.7 C 76 17 122/69 98 Room Air Laboratory Results Blood work does not show any concerning abnormalities, white blood cell count is normal, CRP is not significantly elevated PG Care Time/CCT Total # of Minutes Spent Total Time Spent with Patient: Total time spent is greater than 50% in coordination of care (as documented) at patient's floor/unit and/or counseling patient: Coding Level of Care Code 19848 SUB INP/OBS CARE 2/35MIN Diagnoses SBO (small bowel obstruction) K56.609 Enteritis K52.9
[2025-10-10] MEDS: OPTIRAY 320 100ml IV ONE (16:42)
--- NOTE | 2025-10-10 17:11 | CT Scan Report ---
Technique: Axial computed tomography images were obtained of the abdomen and pelvis after the administration of intravenous and oral contrast. Comparison is made to the prior CT dated 10/08/2025 Findings: The liver is overall of normal size, attenuation, and contour with no sign of cirrhosis or significant fatty infiltration. No liver mass lesion is seen. The portal vein is patent. The gallbladder has been removed. No bile duct dilatation is noted. The spleen is of normal size. No focal splenic lesion is evident. The pancreas appears normal with no sign of acute or chronic pancreatitis and no mass lesion noted. The pancreatic duct is of normal caliber. The adrenal glands appear unremarkable. No definite renal or proximal ureteral calculi are seen on this contrast-enhanced study. There is no hydronephrosis or perinephric stranding. No renal mass lesion is identified. The aorta is of normal caliber. No abdominal adenopathy is seen. There is a small hiatal hernia. There is apparent small bowel obstruction at the level of the distal ileum. There is wall thickening of the distal ileum. There are anastomotic sutures of the sigmoid colon. There is diverticulosis without definite diverticulitis. No free intraperitoneal air is identified. There is a small amount of ascites No distal ureteral or bladder calculi are seen. The bladder is decompressed. The iliac arteries are of normal caliber. No pelvic adenopathy is noted. The uterus has been removed There is mild left lower lobe atelectasis. Lumbar scoliosis and degenerative disc disease is seen. No fracture is identified. No focal osseous lesion is seen Impression: 1. Apparent small bowel obstruction at the level of the distal ileum 2. Mild wall thickening of the distal ileum, concerning for infectious enteritis or inflammatory bowel disease 3. Small amount of ascites 4. Small hiatal hernia 5. Diverticulosis without definite diverticulitis ACT 112: Positive. There are findings on this exam that require communication between the performing entity and the patient following Patient Test Result Information Act ([place] ACT 112) guidelines. Electronically signed by Nikita Leon 10-10-2025 5:06 PM
--- NOTE | 2025-10-10 22:30 | Hospitalist Progress Note ---
Date of Service October 10, 2025 Assessment & Plan (1) Urinary tract infection: (2) Enteritis: (3) Hypokalemia: (4) Essential hypertension: Plan This is a 60 year old female with past medical history of diverticulitis s/p sigmoid resection on 09/11/2025 who presented to the ED on 10/08/2025 for abdominal pain & bladder spasms. While in the ED, she was found to have moderate-severe distal enteritis with probable developing obstruction on a CTAP. Her CBC was unremarkable. Her BMP was consistent with low potassium of 3.1 which was repleted. She was given Fentanyl, Dilaudid in the ED with minimal improvement in symptoms. She will be admitted under observation status for further care. #Enteritis/SBO recent sigmoid resection on 09/[address] Castro. Was doing well up until a few days ago where she developed bladder spasms & abdominal pain. CT scan showing signs of SBO. Recommended patient to walk the halls, will repeat KUB in AM, if no improvement, will place NG tube to decompress. Start PPI BID Monitor BM's Back to clears; may need to go NPO if no improvement. General surgery consulted secondary to recent operation, appreciate recommendations. Continue home tramadol for pain control. Zofran prn for N/V #UTI w/ symptoms of "spasms" after emptying bladder. UC + for Klebsiella oxytoc. sensitivities reviewed, has resistance to multiple antibiotics. Was on Cipro outpatient but symptoms were not improving. CBC is without leukocytosis Start IV Ertapenem while inpatient ID consulted, appreciate recommendations. Oxybutynin prn for symptoms #Hypokalemia k low on admission at 3.1, s/p repletion stable #HTN On Losartan-HCTZ outpatient. Hold HCTZ in the setting of infection & hypokalemia, continue Losartan. #Hypothyroidism - Continue Synthroid, Check TSH in AM. DVT prophylaxis: Lovenox Code: full . Admission and Anticipated Discharge Date Admission Date: October 10, 2025 Subjective 60 yo female reports no new symptoms. Passing some gas. Still feels bloated. Physical Exam Constitutional: WD/WN, vitals as above Neck: trachea midline, no thyromegaly Respiratory: normal respiratory effort, lungs clear to auscultation Cardiovascular: RRR, no murmur, no edema Neurologic: PERRL, EOMI, accommodation nl, no face palsy, no dysarthria Psychiatric: A+Ox3, euthymic affect Results & Data Results & Data Vital Signs (Past 12 Hours) Vital Signs Temp Pulse Resp BP Pulse Ox O2 Del Method 10/10/25 15:29 36.8 C 76 18 115/74 99 Room Air PG Care Time/CCT Total # of Minutes Spent Total Time Spent with Patient: Total time spent is greater than 50% in coordination of care (as documented) at patient's floor/unit and/or counseling patient: Coding Level of Care Code 91153 SUB INP/OBS CARE 3/50MIN Diagnoses Urinary tract infection N39.0 Encounter type: initial encounter Enteritis K52.9 Hypokalemia E87.6 Essential hypertension I10 (1) Urinary tract infection Encounter type: initial encounter
--- NOTE | 2025-10-11 07:20 | Hospitalist Progress Note ---
Date of Service October 11, 2025 Assessment & Plan (1) SBO (small bowel obstruction): (2) Enteritis: (3) Acute cystitis without hematuria: (4) Bladder spasms: Plan In summary this is a 60-year-old female admitted for small bowel obstruction #Ileitis // Small bowel obstruction With respect to the patient's SBO, this appears to be improving without direct intervention at this time; CT abdomen pelvis with oral contrast obtained on 10/10 did not reveal significant dilatation of the proximal small bowel; pending plain film of the abdomen on 10/11 to determine any need for NG tube decompression though clinically suspect this is not necessary Continue clear liquid diet; anticipate advancing based on the patient's tolerance Start acetaminophen 1000 mg p.o. every 8 hours scheduled Continue pantoprazole 40 mg IV twice daily Discontinue hydromorphone, given the patient's endorsed lack of pain control and its likely contribution to persistent small bowel obstruction/ileus If the patient tolerates oral intake on 10/11, anticipate initiation of NSAIDs for additional anti-inflammatory management General Surgery consulted #Acute cystitis without hematuria // Bladder spasicity At presentation the patient was endorsing frequent urination and suprapubic spasticity, found to have a urinalysis concerning for acute cystitis without hematuria; culture revealed Klebsiella oxytoc Infectious disease consulted; recommended continuation of ertapenem through 10/10 for total 5-day antibiotic course Hold oxytocin through 10/12 given active treatment of urinary tract infection The remainder the patient's chronic medical conditions are stable and do not require adjustment to their outpatient regimen at this time Admission and Anticipated Discharge Date Admission Date: October 10, 2025 Subjective Ms. Puckett Is a 60-year-old female whose active medical conditions include hypothyroidism, gastroesophageal reflux disease with recent laparoscopic sigmoidectomy with reanastomosis on 09/11 who was admitted to the [facility] on 10/08 due to ileitis and small bowel obstruction. No acute overnight events; patient reports continued generalized abdominal discomfort with intermittent stabbing type pain and generalized gnawing discomfort. The patient denies any dysuria, hematuria, urinary urgency. She did have a loose bowel movement on 09/10 without notable hematochezia nor melanotic stool. This was associated with some urgency but was relatively low-volume. The patient's last normal bowel movement was on 10/08. She denies any fevers, chills, nausea, vomiting, abdominal distention. Review of Systems Review of Systems: Review of constitutional, gastrointestinal, genitourinary, cardiovascular, pulmonary systems was unremarkable except for pertinent positive and negative findings discussed above Physical Exam Physical Exam: General: Adult female in no acute distress Vital Signs: Reviewed HEENT: Moist mucous membranes Pulmonary: Symmetric chest wall excursion without restriction Cardiovascular: Regular rate and rhythm without murmurs, rubs, or gallops; left radial pulse 2+ Gastrointestinal: Soft, nondistended; voluntary guarding; low-frequency high- pitched bowel sounds throughout the abdomen; tenderness to palpation primarily in the left lower quadrant; mild tenderness reproducible with percussion without acute peritoneal findings Neurologic: Cranial nerves II through XII grossly intact Skin: Surgical incisions from intervention on 09/11 appear to be healing well without complication Results & Data Results & Data Vital Signs (Past 12 Hours) Vital Signs Temp Pulse Resp BP Pulse Ox O2 Del Method 10/11/25 00:00 36.6 C 76 17 134/76 96 Room Air PG Care Time/CCT Total # of Minutes Spent Total Time Spent with Patient: Total time spent is greater than 50% in coordination of care (as documented) at patient's floor/unit and/or counseling patient: Coding Level of Care Code 11613 SUB INP/OBS CARE 2/35MIN Diagnoses SBO (small bowel obstruction) K56.609 Enteritis K52.9 Acute cystitis without hematuria N30.00 Bladder spasms N32.89
[2025-10-11] MEDS: ACETAMINOPHEN 500 MG TAB PO SCH (08:27)
[2025-10-11] MEDS: POLYETHYLENE (MIRALAX) 17 GM PACK PO SCH (08:29)
--- NOTE | 2025-10-11 09:30 | XRay Report ---
KUB CLINICAL HISTORY: SBO COMPARISON STUDY: CT scan dated 10/10/2025 FINDINGS: There is a lumbar levoscoliosis. There are surgical clips within the right upper quadrant c onsistent with a prior cholecystectomy. There is contrast present within nondilated colon. There are mildly dilated left mid abdominal small bowel loops measuring up tor 3.4 cm in diameter. IMPRESSION: 1. Decreased distention of the small bowel 2. Contrast is visualized within nondilated colon. ACT 112: Negative or not required by law. Electronically signed by: Giovany Felix M.D. 10/11/2025 9:29 AM
--- NOTE | 2025-10-11 12:23 | Surgery Progress Note ---
Date of Service October 11, 2025 Assessment & Plan (1) Enteritis: Plan: Pt is s/p s/p laparoscopic hand-assisted sigmoid colectomy with primary anastomosis for complicated diverticulitis with abscess cavity Vitals are stable. Abdomen soft with mild discomfort throughout to palpation Pt underwent repeat CT a/p yesterday that showed apparent small bowel obstruction at the level of the distal ileum with some mild wall thickening of the ileum concerning for enteritis vs IBD Today KUB this AM shows decreased small bowel distention with contrast reaching the colon She is ambulating the halls well. Some nausea noted but wonders if it's related to the clears. She has been passing gas along with loose stools this AM Okay to give full liquids a try and see how she fairs. If starts vomiting back her diet back down Admission and Anticipated Discharge Date Admission Date: October 10, 2025 Subjective Patient seen ambulating the halls. Reports + nausea but that she feels it could be related to the clears/broth she is having. They are not appetizing to her. She is passing gas and loose stool this morning. Some lower abdominal fullness she describes. Physical Exam Physical Exam: awake/alert, no distress Respiratory: normal respiratory effort Gastrointestinal (Abdomen): Percussion/Palpation: + abdomen tender (mild general discomfort to palpation ) and abdomen soft Results & Data Vital Signs (Past 12 Hours) Vital Signs Temp Pulse Resp BP Pulse Ox O2 Del Method 10/11/25 08:00 98.6 F 75 19 132/83 95 Room Air PG Care Time/CCT Total # of Minutes Spent Total Time Spent with Patient: Total time spent is greater than 50% in coordination of care (as documented) at patient's floor/unit and/or counseling patient: Coding Level of Care Code 12152 SUB INP/OBS CARE 12/03MIN Diagnoses Enteritis K52.9
--- NOTE | 2025-10-12 07:31 | Hospitalist Progress Note ---
Date of Service October 12, 2025 Assessment & Plan (1) SBO (small bowel obstruction): (2) Enteritis: (3) Acute cystitis without hematuria: (4) Bladder spasms: Plan In summary this is a 60-year-old female admitted for small bowel obstruction #Ileitis // Small bowel obstruction With respect to the patient's SBO, this appears to be improving without direct intervention at this time; CT abdomen pelvis with oral contrast obtained on 10/10 did not reveal significant dilatation of the proximal small bowel; plain film on 10/11 with evidence of reduced small bowel distension and contrast progressing into the colon Continue full liquid diet; anticipate advancing based on the patient's tolerance Continue acetaminophen 1000 mg p.o. every 8 hours scheduled Continue pantoprazole 40 mg p.o. twice daily Discontinue hydromorphone, given the patient's endorsed lack of pain control and its likely contribution to persistent small bowel obstruction/ileus General Surgery consulted #Acute cystitis without hematuria // Bladder spasticity At presentation the patient was endorsing frequent urination and suprapubic spasticity, found to have a urinalysis concerning for acute cystitis without hematuria; culture revealed Klebsiella oxytoc; symptoms of spasticity resolved Infectious disease consulted; recommended continuation of ertapenem through 10/10 for total 5-day antibiotic course The remainder the patient's chronic medical conditions are stable and do not require adjustment to their outpatient regimen at this time Admission and Anticipated Discharge Date Admission Date: October 10, 2025 Subjective Ms. Puckett Is a 60-year-old female whose active medical conditions include hypothyroidism, gastroesophageal reflux disease with recent laparoscopic sigmoidectomy with reanastomosis on 09/11 who was admitted to the [facility] on 10/08 due to ileitis and small bowel obstruction. No acute overnight events; continues to have abdominal pain, but without alleviating or exacerbating causes Review of Systems Review of Systems: Review of constitutional, gastrointestinal, genitourinary, cardiovascular, pulmonary systems was unremarkable except for pertinent positive and negative findings discussed above Physical Exam Physical Exam: General: Adult female in no acute distress Vital Signs: Reviewed HEENT: Moist mucous membranes Pulmonary: Symmetric chest wall excursion without restriction Cardiovascular: Regular rate and rhythm without murmurs, rubs, or gallops; left radial pulse 2+ Gastrointestinal: Soft, nondistended; less notable voluntary guarding; normal- frequency normal-pitched bowel sounds throughout the abdomen; tenderness to palpation primarily in the left lower quadrant; no longer tender with percussion Neurologic: Cranial nerves II through XII grossly intact Skin: Surgical incisions from intervention on 09/11 appear to be healing well without complication Results & Data Results & Data Vital Signs (Past 12 Hours) Vital Signs Temp Pulse Resp BP Pulse Ox O2 Del Method 10/11/25 23:42 36.9 C 66 18 129/84 98 Room Air Laboratory Results Pending stool collection to assess lactoferrin, calprotectin, and occult blood PG Care Time/CCT Total # of Minutes Spent Total Time Spent with Patient: Total time spent is greater than 50% in coordination of care (as documented) at patient's floor/unit and/or counseling patient: Coding Level of Care Code 74916 SUB INP/OBS CARE 235MIN Diagnoses SBO (small bowel obstruction) K56.609 Enteritis K52.9 Acute cystitis without hematuria N30.00 Bladder spasms N32.89
--- NOTE | 2025-10-12 09:42 | Surgery Progress Note ---
<Statement entered by Srini Castro MD - 10/12/25 12:56> I independently saw and examined the patient, and I agree with the assessment and plan of care. Date of Service October 12, 2025 Assessment & Plan (1) Enteritis: Plan: Pt is s/p s/p laparoscopic hand-assisted sigmoid colectomy with primary anastomosis for complicated diverticulitis with abscess cavity Vitals are stable. Abdomen soft with lower abdominal discomfort noted WBC has been normal and vitals are stable. Will add lactate and CRP on to AM labs to follow up Will advance diet to low fiber and see how she fairs Continue tylenol for pain. Could consider toradol in addition but appears she may have an allergy to this Continue ambulation Pt wishes to spend another day to ensure she continues to do well Will follow Admission and Anticipated Discharge Date Admission Date: October 10, 2025 Subjective Patient reports ongoing lower abdominal pain. She otherwise is tolerating a liquid diet without worsening symptoms or n/v. She is passing some gas and some liquid stools. + ambulating. No more bladder spasms Physical Exam Physical Exam: awake/alert, no distress Respiratory: normal respiratory effort Gastrointestinal (Abdomen): Percussion/Palpation: + abdomen tender (mild general discomfort to palpation ) and abdomen soft Results & Data Vital Signs (Past 12 Hours) Vital Signs Temp Pulse Resp BP Pulse Ox O2 Del Method 10/12/25 08:58 98.2 F 80 18 145/87 H 96 Room Air 10/11/25 23:42 98.4 F 66 18 129/84 98 Room Air PG Care Time/CCT Total # of Minutes Spent Total Time Spent with Patient: Total time spent is greater than 50% in coordination of care (as documented) at patient's floor/unit and/or counseling patient: Coding Level of Care Code 75025 SUB INP/OBS CARE 12/03MIN Diagnoses Enteritis K52.9
[2025-10-12] MEDS: LACTATED RINGER'S 1,000 ML IV SCH (10:41)
[2025-10-13 01:00] VITALS: RESP 14
[2025-10-13] MEDS ORDERED: MELATONIN 3 MG TAB PO PRN (02:34)
--- NOTE | 2025-10-13 07:38 | Hospitalist Progress Note ---
Date of Service October 13, 2025 Assessment & Plan (1) SBO (small bowel obstruction): (2) Enteritis: (3) Acute cystitis without hematuria: (4) Bladder spasms: Plan In summary this is a 60-year-old female admitted for small bowel obstruction #Ileitis // Small bowel obstruction With respect to the patient's SBO, this appears to be improving without direct intervention at this time; CT abdomen pelvis with oral contrast obtained on 10/10 did not reveal significant dilatation of the proximal small bowel; plain film on 10/11 with evidence of reduced small bowel distension and contrast progressing into the colon - Pending RFP and CBC in the morning 10/13 Continue full liquid diet; anticipate advancing based on the patient's tolerance Continue acetaminophen 1000 mg p.o. every 8 hours scheduled Continue pantoprazole 40 mg p.o. twice daily Discontinue hydromorphone, given the patient's endorsed lack of pain control and its likely contribution to persistent small bowel obstruction/ileus General Surgery consulted #Acute cystitis without hematuria // Bladder spasticity At presentation the patient was endorsing frequent urination and suprapubic spasticity, found to have a urinalysis concerning for acute cystitis without hematuria; culture revealed Klebsiella oxytoc; symptoms of spasticity resolved Infectious disease consulted; recommended continuation of ertapenem through 10/10 for total 5-day antibiotic course The remainder the patient's chronic medical conditions are stable and do not require adjustment to their outpatient regimen at this time Admission and Anticipated Discharge Date Admission Date: October 10, 2025 Review of Systems Review of Systems: Review of constitutional, gastrointestinal, genitourinary, cardiovascular, pulmonary systems was unremarkable except for pertinent positive and negative findings discussed above Physical Exam Physical Exam: General: Adult female in no acute distress Vital Signs: Reviewed HEENT: Moist mucous membranes Pulmonary: Symmetric chest wall excursion without restriction Cardiovascular: Regular rate and rhythm without murmurs, rubs, or gallops; left radial pulse 2+ Gastrointestinal: Soft, nondistended; less notable voluntary guarding; normal- frequency normal-pitched bowel sounds throughout the abdomen; tenderness to palpation primarily in the left lower quadrant; no longer tender with percussion Neurologic: Cranial nerves II through XII grossly intact Skin: Surgical incisions from intervention on 09/11 appear to be healing well without complication Results & Data Results & Data Vital Signs (Past 12 Hours) Vital Signs Temp Pulse Resp BP Pulse Ox O2 Del Method 12/05/25 00:35 36.7 C 81 14 128/83 97 Room Air PG Care Time/CCT Total # of Minutes Spent Total Time Spent with Patient: Total time spent is greater than 50% in coordination of care (as documented) at patient's floor/unit and/or counseling patient: Coding Diagnoses SBO (small bowel obstruction) K56.609 Enteritis K52.9 Acute cystitis without hematuria N30.00 Bladder spasms N32.89
[2025-10-13 08:12] VITALS: BP 140/82; PULSE 64; TEMP 98.2; O2SAT 96
[2025-10-13 09:02] LABS: Hematocrit (blood only) 36.1 % (37.0-47.0); Hemoglobin 12.5 g/dL (12.0-16.0); Mean Corpuscular Hemoglobin 29.8 pg (25.0-34.0); Mean Corpuscular Volume 86.2 fL (80.0-100.0); Platelet Count 250 K/uL (130-400); RDW Standard Deviation 46.1 fL (36.4-46.3); Red Blood Count 4.19 M/uL (4.20-5.40); White Blood Count 7.84 K/ul (4.8-10.8)
--- NOTE | 2025-10-13 09:06 | Surgery Progress Note ---
<Statement entered by Srini Castro MD - 10/13/25 11:13> I independently saw and examined the patient, and I agree with the assessment and plan of care. Date of Service October 13, 2025 Assessment & Plan (1) Enteritis: Plan: Pt is s/p laparoscopic hand-assisted sigmoid colectomy with primary anastomosis for complicated diverticulitis with abscess cavity on 09/11/[address] Castro -VSS, abdomen soft and nondistended. She did have one episode of emesis overnight however has no complaints this morning and did tolerate some breakfast and also had a bowel movement. -Pain overall better controlled. Patient states she would like to have a few tabs of Ultram sent home with her if possible, from our standpoint ok with this. -Patient is stable from a surgical standpoint for discharge today. Did provide a work excuse for her to return back to work on 10/18 with light duty. She was also instructed to continue her low-fiber diet and light foods until her follow up in our clinic with Dr. Castro next week. Admission and Anticipated Discharge Date Admission Date: October 10, 2025 Subjective Patient states she is feeling really well this morning however last evening did have an episode of emesis. Was able to eat some breakfast this morning without any additional issues. Currently denies any ongoing nausea and abdominal pain has improved. Did have a bowel movement No more bladder spasms Physical Exam Constitutional: WD/WN, vitals as above Respiratory: normal respiratory effort, lungs clear to auscultation Cardiovascular: Rate/Rhythm: regular rate Gastrointestinal (Abdomen): Abdomen soft, nondistended, nontender to palpation Surgical sites are healing appropriately with no signs of infection Results & Data Vital Signs (Past 12 Hours) Vital Signs Temp Pulse Pulse Resp BP Pulse Ox O2 Del Method 10/13/25 08:08 36.8 C 64 14 140/82 96 Room Air 10/13/25 00:35 36.7 C 81 14 128/83 97 Room Air PG Care Time/CCT Total # of Minutes Spent Total Time Spent with Patient: Total time spent is greater than 50% in coordination of care (as documented) at patient's floor/unit and/or counseling patient: Coding [place] [address] SUB INP/OBS CARE 12/03MIN Patient Type Established History Problem Focused Exam Problem Focused Medical Decision Making Straight Forward Diagnoses Enteritis K52.9
[2025-10-13 09:16] LABS: Albumin Level 3.6 gm/dl (3.4-5.0); Anion Gap 7.0 (3-11); Blood Urea Nitrogen 5.0 mg/dl (6-23); Calcium 9.1 mg/dl (8.6-10.3); Carbon Dioxide 28.0 mmol/L (21-32); Chloride 105.0 mmol/L (98-107); Creatinine Clr Calc Pharmacy 87.5 ml/min; Glucose 97.0 mg/dl (70-99(Fasting)); Potassium 3.5 mmol/L (3.5-5.1); Sodium 140.0 mmol/L (136-145)
--- NOTE | 2025-10-13 15:20 | Discharge Summary ---
Discharge Summary Date of Service October 13, 2025 Principal Dx & Hospital Course #1 = Principal Diagnosis (1) SBO (small bowel obstruction): (2) Enteritis: (3) Acute cystitis without hematuria: (4) Bladder spasms: Plan #Ileitis // Small bowel obstruction With respect to the patient's SBO, this appears to be improving without direct intervention at this time; CT abdomen pelvis with oral contrast obtained on did not reveal significant dilatation of the proximal small bowel; plain film on 10/11 with evidence of reduced small bowel distension and contrast progressing into the colon; continues to tolerate oral intake well, abdominal pain steadily improving. At the time of discharge, pending fecal calprotectin and lactoferrin to rule out IBD as contributing cause of ileitis; otherwise, most likely to be viral #Acute cystitis without hematuria // Bladder spasticity At presentation the patient was endorsing frequent urination and suprapubic spasticity, found to have a urinalysis concerning for acute cystitis without hematuria; culture revealed Klebsiella oxytoc; symptoms of spasticity resolved Infectious disease consulted; recommended continuation of ertapenem through 12/11 for total 5-day antibiotic course Admission HPI Per Admitting Provider This is a 60 year old female with past medical history of diverticulitis s/p sigmoid resection on 09/11/2025 who presented to the ED on 10/08/2025 for abdominal pain & bladder spasms. Liliam was seen & examined with her at bedside. She reports that she had been doing well up until a few days ago where she felt a "spasm" type sensation with bladder emptying and associated abdominal pain. She reports she was seen by her surgeon on the and had cipro called in for her on the secondary to a UTI. Reports no relief in taking the abx at home. She reports she has been moving her bowels well, 4 times yesterday. She admits to nausea but denies any vomiting. While in the ED, she was found to have moderate-severe distal enteritis with probable developing obstruction on a CTAP. Her CBC was unremarkable. Her BMP was consistent with low potassium of 3.1 which was repleted. She was given Fentanyl, Dilaudid in the ED with minimal improvement in symptoms. She will be admitted under observation status for further care. Code discussion did take place in the ED & she does confirm she is a full code. Discharge Exam General: Adult female in no acute distress Vital Signs: Reviewed HEENT: Moist mucous membranes Pulmonary: Symmetric chest wall excursion without restriction Cardiovascular: Regular rate and rhythm without murmurs, rubs, or gallops; left radial pulse 2+ Gastrointestinal: Soft, nondistended; less notable voluntary guarding; normal- frequency normal-pitched bowel sounds throughout the abdomen; tenderness to palpation primarily in the left lower quadrant; no longer tender with percussion Neurologic: Cranial nerves II through XII grossly intact Skin: Surgical incisions from intervention on 09/11 appear to be healing well without complication Discharge Plan Discharge Items Patient Disposition: Home - Self-Care Reason For Visit: ABDOMINAL PAIN, BLADDER SPASMS Discharge Diagnosis: Ileitis with small bowel obstruction Condition on Discharge: Fair Activity: Per Instructions section Lifting: No more than 10 pounds Non-emergency contact: Primary Care Provider and Surgeon Call non-emergency contact if: your symptoms worsen Follow-up/Referrals: Shi Velasquez MD [Primary Care Provider] - (THE OFFICE WILL CALL YOU WITH A 7- 10 HOSPITAL FOLLOW UP APPOINTMENT.) Srnii Castro MD [Surgeon] - 10/23/25 10:30 am (follow up with Dr. Castro next week for post-hospital follow up ) Diet: Low Fiber Addtl Attending Provider Instructions: You were admitted to the [facility] for a small bowel obstruction caused by ileitis. Your small bowel obstruction improved without any direct intervention. CT abdomen pelvis with oral contrast obtained on 10/10 did not reveal any significant complications, and plain film on 10/11 revealed continued progressive improvement. Continue acetaminophen 1000 mg p.o. every 8 hours at home and tramadol as needed for severe breakthrough pain. We also recommend continued use of MiraLAX to help with softening your bowel movements, specifically starting with 1 capful in 8 ounces of noncarbonated, nondairy fluid once daily to be increased or decreased by one half capful every 3 to 4 days to maintain 2-3 easily pass bowel movements daily. During your hospitalization you had endorsed increased urinary frequency and bladder spasticity; you are found to have an acute urinary tract infection without associated bleeding which was treated with 5 days of antibiotics. Since this, your symptoms have remained resolved. Pending Studies at Discharge: Yes (Fecal calprotectin and lactoferrin) Stand-Alone Forms: My [facility], Pain - Opioid Pain Management, Work/School Release Medications and DC Order Prescriptions: New acetaminophen [Tylenol Extra Strength] 500 mg Tablet 1,000 mg PO Q8H 30 Days Qty: 180 0RF polyethylene glycol 3350 [Miralax] 17 gram Powder In Packet 17 g PO DAILY Qty: 0 0RF Continued levothyroxine 25 mcg Tablet 25 mcg PO DAILY losartan-hydrochlorothiazide 50-12.5 mg tablet 1 tab PO DAILY omeprazole 20 mg Capsule,Delayed Release(Dr/Ec) 20 mg PO DAILY ondansetron 4 mg tablet,disintegrating 4 mg PO Q6H PRN (Reason: nausea and vomiting) Qty: 30 0RF tramadol 50 mg tablet 50 mg PO Q6H PRN (Reason: pain) 5 Days Qty: 14 0RF Discontinued ciprofloxacin HCl 500 mg tablet 500 mg PO Q12H Qty: 20 0RF ibuprofen 200 mg Tablet 800 mg PO Q8 PRN (Reason: Pain) Discharge Orders: Discharge Order (Routine); Ordered 10/13/25 Ordered By: Gilbert Najera Admission Data Admit Date/Time: 10/10/25 11:02 Attending Provider: Gilbert Najera Admit Provider: Kieth Alfred Primary Care Provider: Shi Velasquez Other Providers: Keith Alfred; Chirag Sen; Catracho Gallego; Omero Russell; Rg Dorman; Brett Dai; Agustina Law; Angus Woodruff; Lane Cook; Amauri Rojas; Jose Alfredo Anthony; Jerome Tavera; Rg Serra; Matthew,Asna A Other Interventions: Discharge Summary Assessment (RN) Last Done: 10/13/25 12:44 Hospital Stay Data Consultations 10/08/25 08:57 ED Decision to Admit Stat 10/08/25 09:22 Consult General Surgery Routine 10/08/25 11:46 Consult Infectious Diseases Routine Diagnostic Imagining Performed 10/08/25 06:43 CT abd pelvis IV con only Stat 10/10/25 12:26 CT abd pelvis oral and IV con Urgent Pending Results Patient Have Any Pending Studies at Discharge: Yes (Fecal calprotectin and lactoferrin) Discharge Instructions Given to Patient (Per Discharging Provider) You were admitted to the [facility] for a small bowel obstruction caused by ileitis. Your small bowel obstruction improved without any direct intervention. CT abdomen pelvis with oral contrast obtained on 10/10 did not reveal any significant complications, and plain film on 10/11 revealed continued progressive improvement. Continue acetaminophen 1000 mg p.o. every 8 hours at home and tramadol as needed for severe breakthrough pain. We also recommend continued use of MiraLAX to help with softening your bowel movements, specifically starting with 1 capful in 8 ounces of noncarbonated, nondairy fluid once daily to be increased or decreased by one half capful every 3 to 4 days to maintain 2-3 easily pass bowel movements daily. During your hospitalization you had endorsed increased urinary frequency and bladder spasticity; you are found to have an acute urinary tract infection without associated bleeding which was treated with 5 days of antibiotics. Since this, your symptoms have remained resolved. Total Time Total Time Spent Total Time Spent (In Minutes): I personally spent 80 minutes in the coordination of today's discharge including bedside counselling, physical exam, medication reconciliation Coding Level of Care Code 68097 INP/OBS DISCH >30 MIN Diagnoses SBO (small bowel obstruction) K56.609 Enteritis K52.9 Acute cystitis without hematuria N30.00 Bladder spasms N32.89
== END 2025-10-13 13:15 | disposition home or self-care (01) | DRG 389 ==
LOC: SUATTDRO → 3E 05:43 → ED 05:43 → SUATTDRO 09:22 → 3E 10:45 → SUATTDRO 10-10 11:02